=== PATIENT | female | born 1945 | race Caucasian/White ===

== ENCOUNTER 2022-10-01 07:33 | Outpatient (OUT) | payer MEDICARE, OTHER, SELFPAY ==
--- NOTE | 2022-10-01 | ECG_ITS ---
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
[2022-10-01 08:00] LABS: Basophils Percent Auto 0.5 % (0.2-2.0); Eosinophils Absolute Auto 0.4 10^3/uL (0.0-0.7); Eosinophils Percent Auto 5.3 % (0.9-7.0); Hematocrit 39.8 % (36.0-48.0); Immature Granulocytes Abs Auto 0.02 10^3/uL (0.00-0.03); Immature Granulocytes Pct Auto 0.3 % (0.0-0.5); Lymphocytes Absolute Auto 2.9 10^3/uL (1.2-3.8); Lymphocytes Percent Auto 36.1 % (20.5-60.0); Mean Corpuscular HGB Conc 32.7 g/dL (29.9-35.2); Mean Corpuscular Hemoglobin 28.8 pg (26.7-34.0); Mean Corpuscular Volume 88.2 fL (81.0-99.0); Mean Platelet Volume 10.5 fL (9.5-13.5); Monocytes Absolute Auto 0.8 10^3/uL (0.3-0.8); Monocytes Percent Auto 10.2 % (1.7-12.0); Neutrophils Absolute Auto 3.8 10^3/uL (1.4-6.5); Neutrophils Percent Auto 47.6 % (43.0-75.0); Platelet Count 307 10^3/uL (150-450); Red Blood Count 4.51 10^6/uL (4.20-5.40); Red Cell Distribution Width 13.1 % (11.0-15.0)
--- NOTE | 2022-10-01 08:13 | XR_ITS ---
The [address] [address] Patient Name: CARMEN ROSAS MRN: [id number] date: 1945 Sex: F Assigned Patient Location: LAB Current Patient Location: LAB Accession/Order Number: [id number] Exam Date: 10/01/2022 08:20 Report Date: 10/01/2022 08:46 At the request of: NON-STAFF PHYSICIAN Procedure: XR chest 2V EXAM: XR chest 2V HISTORY: . Atrial Fibrillation I48.91 . COMPARISON: 10/01/2021 TECHNIQUE: Frontal and lateral chest FINDINGS: Heart and vascularity are unremarkable. Lungs are free of focal infiltrates. Early spondylosis of the spine is noted. Arthritic changes of both shoulders are noted left greater than right. XR/XR chest 2V IMPRESSION: 1. No acute heart or lung disease identified. 2. Arthritic changes of both shoulders. Electronically authenticated by: SHIRA HWANG Date: 10/01/2022 08:46
[2022-10-01 08:53] LABS: Alanine Aminotransferase 22 U/L (14-59); Albumin Level 3.8 g/dL (3.4-5.0); Alkaline Phosphatase 76 U/L (46-116); Anion Gap 12.4; Aspartate Amino Transferase 17 U/L (15-37); BUN Creatinine Ratio 21.2; Bilirubin Total 0.3 mg/dL (0.2-1.0); Calcium 8.8 mg/dL (8.5-10.1); Carbon Dioxide 27.3 mmol/L (21.0-32.0); Chloride 106 mmol/L (98-107); Chol HDL Ratio 2.9; Cholesterol 139 mg/dL (<=200); Estimated GFR (African America 42 (>=60); Estimated GFR (Non-African Ame 35 (>=60); Globulin 3.8 g/dL; Glucose 104 mg/dL (74-106); HDL Cholesterol 48 mg/dL (40-60); Potassium 3.7 mmol/L (3.5-5.1); Sodium 142 mmol/L (136-145); Thyroid Stimulating Hormone 2.087 uIU/mL (0.358-3.740); Total Protein 7.6 g/dL (6.4-8.2); Triglycerides 80 mg/dL (<=150)
== END 2022-10-01 07:34 | disposition home or self-care (01) ==
LOC: LAB 07:39
PROVIDERS: PCP Family Medicine
DX: Z13.220 Encounter for screening for lipoid disorders (principal); Z13.6 Encounter for screening for cardiovascular disorders; I07.1 Rheumatic tricuspid insufficiency; I48.91 Unspecified atrial fibrillation
CPT/HCPCS: 36415; 71046; 80053; 80061; 83735; 84443; 85025; 93005

== ENCOUNTER 2023-06-23 13:16 | Outpatient (OUT) | payer MEDICARE, OTHER, SELFPAY | END 2023-06-23 13:17 | disposition home or self-care (01) | LOC: PST 13:17 | PROVIDERS: PCP Family Medicine; Visit Provider Ophthalmology | DX: Z01.818 Encounter for other preprocedural examination (principal); H25.811 Combined forms of age-related cataract, right eye ==

== ENCOUNTER 2023-06-26 06:54 | Day surgery (SDC) | payer MEDICARE, OTHER, SELFPAY ==
--- NOTE | 2023-06-26 | OP_ITS ---
OPERATION DATE: 06/26/2023 SURGEON: Gildardo Dwyer M.D. PREOPERATIVE DIAGNOSIS: Nuclear sclerotic cataract right eye. POSTOPERATIVE DIAGNOSIS: Nuclear sclerotic cataract right eye. PROCEDURE NAME: Cataract extraction with intraocular lens placement for the right eye. ANESTHESIA: Topical. ESTIMATED BLOOD LOSS: Zero. COMPLICATIONS: None. PROCEDURE: The patient was brought to the Operating Room in supine position. After proper identification, the right eye was prepped and draped in a sterile ophthalmic fashion. A paracentesis created at the 11 o'clock position. Approximately 1 cc of unpreserved Xylocaine was injected into the anterior chamber followed by Amvisc Plus. Using a 2.6 mm Keratome blade, a clear corneal incision was created at the 8 o'clock limbus. A cystotome was then used to begin a curvilinear capsulorrhexis that was continued for 360 degrees with the Utrata forceps. BSS on a 26 gauge cannula was injected beneath the anterior capsule to hydrodissect as well as hydrodelineate the lens. After ensuring mobility, phacoemulsification was performed in a [id number]-type fashion. After all nuclear material had been removed from the eye, IA was introduced and all residual cortical material was cleaned up. Additional Amvisc Plus was injected into the posterior bag and a lens model MX60, 24.0 diopters was injected and dialed into position. After ensuring centration, IA was reintroduced into the anterior chamber and all residual Amvisc Plus removed from the eye. BSS on a 30 gauge cannula was injected into the stroma of both the clear corneal incision as well as paracentesis to hydrate the wounds. Additional BSS was injected into the anterior chamber to pressurize the eye at approximately 20 to 22 mmHg by finger tension. 0.1 cc of antibiotic was used to wash out the anterior chamber, maintaining the pressures above. Weck-Vania sponges were used to check the wounds to be watertight. One drop of apraclonidine and one drop of prednisolone acetate were placed into the eye and a shield was placed over top. The patient was sent to the postoperative area in satisfactory condition to follow up the following day for postoperative care. TRIPP
--- NOTE | 2023-06-26 06:54 | HP_ITS ---
PREOPERATIVE HISTORY AND PHYSICAL Date:? 06/25/2023 HISTORY:? Patient is a 78-year-old white female with complaints of declining vision out of her right eye.? This has gradually worsened in a constant fashion over the last eight months.? She states having difficulty with distance and near vision.? The television and activities of daily living are harder to see.? She also states having difficulty at night time while driving because of headlights creating glare and halos.? PAST OCULAR HISTORY:? Denies. PAST MEDICAL HISTORY:? Atrial fibrillation, GERD, hiatal hernia, history of cardioversion, chronic kidney disease stage III.? History of bladder suspension, hysterectomy, tonsillectomy. SYSTEMIC MEDICATIONS:? Include calcium citrate, triamterene, hydrochlorothiazide, rosuvastatin, hydralazine, diltiazem, metoprolol and Xarelto.? ALLERGIES TO MEDICATIONS:? Lisinopril. REVIEW OF SYSTEMS:? No pertinent positives. PHYSICAL EXAM: GENERAL:? In general, she is awake, alert and oriented x3, well developed, well nourished, in no acute distress.? HEART:? Regular rate and rhythm. LUNGS:? Clear bilaterally. ABDOMEN:? Soft, non-tender, non-distended. EXTREMITIES:? No pitting edema. OPHTHALMIC EXAM:? Revealed a visual acuity of 20/40 -2 in the right and hand motion in the left, and the right eye glaring to 20/200.? Pupils motility, muscle balance and confrontational visual amaro within normal limits bilaterally.? Pressures are measured at 16 bilaterally.? Slit lamp exam revealed blepharitis with a severe decrease in tear film bilaterally.? Conjunctiva, cornea, anterior chamber and iris were within normal limits bilaterally.? Lens status demonstrated 2+ nuclear sclerosis with 1+ cortical changes in the right and 3+ nuclear sclerosis, 3+ PSC and 2+ cortical change in the left eye.? FUNDUS EXAM:? Revealed good view on the right and poor view on the left.? Optic discs, macula, vessels, periphery and vitreous were within normal limits bilaterally.? ASSESSMENT AND PLAN:? Visually significant cataract, right eye.? After the risks, benefits, and alternatives as well as expectations were delivered to the patient, she elected to go forward with cataract removal.? She understands those risks to include but not limited to infection, bleeding, loss of vision or loss of the eye itself.? Secondly, she understands that postoperatively she is likely to require spectacle correction for her best visual acuity.? Finally, a complete ophthalmic exam was performed and there was not determined to be any other source of vision decline other than that of cataract. After understanding all risks as well as expectations, she elected to go forward with the procedure as listed above and will be doing so in the near future. TRIPP
[2023-06-26 07:04] VITALS: BP 137/64; PULSE 65; TEMP 36.4; O2SAT 98; BMI 31.8
[2023-06-26] MEDS: TROPICAMIDE 1% OP SOL 300 DROP/15 ML BOTTLE OP ×4 (07:13→07:40)
[2023-06-26] MEDS: PHENYLEPHRINE HCL 2.5% OP SOL 40 DROP/2 ML BOTTLE OP ×4 (07:14→07:40)
[2023-06-26] MEDS: DIAZEPAM 5 MG TABLET 10 MG PO (07:15)
[2023-06-26] MEDS: BESIFLOXACIN HCL 100 DROP DROPS.SUSP OP ×4 (07:15→07:41)
[2023-06-26] MEDS: PROPARACAINE HCL 0.5% 300 DROP/15 ML BOTTLE OP (08:22)
[2023-06-26 08:33] VITALS: BP 115/77; PULSE 60; O2SAT 94
[2023-06-26] MEDS: LIDOCAINE 2% JELLY 10 ML TOPICAL (08:36)
[2023-06-26] MEDS: APRACLONIDINE HCL 0.5% SOL 100 DROP/5 ML BOTTLE OP (08:36)
[2023-06-26] MEDS: HYALURONATE SODIUM 16 MG/ML SYRINGE OP (08:36)
[2023-06-26] MEDS: LIDOCAINE HCL 1% PF 20 MG/2 ML VIAL INJ (08:36)
[2023-06-26] MEDS: BETADINE POVIDONE-IODINE 5% OP SOL 30 ML BOTTLE OP (08:37)
[2023-06-26] MEDS: TETRACAINE HCL 0.5% OP SOL 80 DROP/4 ML BOTTLE OP (08:37)
[2023-06-26] MEDS: PHENYLEPHRINE/KETOROLAC 1-0.3% ML VIAL 4 ML IRR (08:37)
[2023-06-26] MEDS: PREDNISOLONE ACETATE OP 1% SUSP 100 DROPS/5 ML 1 DROP OP (08:37)
[2023-06-26] MEDS: CEFUROXIME SODIUM 750 MG, 0.9 % SODIUM CHLORIDE 16.3 ML OP (08:38)
[2023-06-26 08:46] VITALS: BP 129/87; PULSE 52; O2SAT 96
== END 2023-06-26 09:00 | disposition home or self-care (01) ==
LOC: SURGOUT 06:55
PROVIDERS: PCP Family Medicine; Visit Provider Ophthalmology
PROC: (CPT 66984; principal; 2023-06-26 08:15)
DX: H25.11 Age-related nuclear cataract, right eye (principal); I48.91 Unspecified atrial fibrillation; K21.9 Gastro-esophageal reflux disease without esophagitis; K44.9 Diaphragmatic hernia without obstruction or gangrene; N18.30 Chronic kidney disease, stage 3 unspecified; Z90.710 Acquired absence of both cervix and uterus; Z79.01 Long term (current) use of anticoagulants
CPT/HCPCS: 66984; V2630

== ENCOUNTER 2023-09-30 08:04 | Outpatient (OUT) | payer MEDICARE, OTHER, SELFPAY ==
--- NOTE | 2023-09-30 | ECG_ITS ---
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
--- OUTSIDE RECORDS SUMMARY | 2023-09-30 08:20 | XMS_ITS | CCD ---
Author Organization [facility] Care Team Providers Care [place] Salvage Worker Name Role Phone Dusty Sommers Primary Care Provider [phone] ROBERTO CARLOS ONEILL Attending Unavailable DUSTY SOMMERS Primary Care Unavailable DUSTY SOMMERS Referring Unavailable ROBERTO CARLOS ONEILL Admitting Unavailable [place] Procedure Practitioner Unavailab ROBERTO CARLOS [place] Surgeon Unavailable SARAHI JARAMILLO Admitting Unavailable SARAHI JARAMILLO Attending Unavailable DUSTY SOMMERS Primary Care Unavailable SELF, REFERRED Referring Unavailable SARAHI JARAMILLO Admitting Unavailable SARAHI JARAMILLO Attending Unavailable DUSTY SOMMERS Primary Care Unavailable DUSTY SOMMERS Referring Unavailable SARAHI JARAMILLO Attending Unavailable SARAHI JARAMILLO Admitting Unavailable MATTHIEU, DUSTY Referring Unavailable MATTHIEU, DUSTY Primary Care Unavailable MATTHIEU, EDDOMO Referring Unavailable SARAHI JARAMILLO Admitting Unavailable SARAHI JARAMILLO Attending Unavailable MATTHIEU, DUSTY Primary Care Unavailable Dusty Sommers MD Primary Care Provider [phone] BLADIMIR SALGUERO Referring Unavailable DUSTY SOMMERS Primary Care Unavailable BLADIMIR SALGUERO Admitting Unavailable BLADIMIR SALGUERO Attending Unavailable DR DUSTY SOMMERS Primary Care Unavailable Richard, DR Barba Consulting Unavailable BLADIMIR SALGUERO Consulting Unavailable DUSTY SOMMERS Attending Unavailable ERICK FERRIS Attending Unavailable MARIO HENRY Referring Unavailable Medications Current Medications Medication Drug Class(es) Dates Sig (Normalized) Sig (Original) aspirin 81 mg delayed release oral tablet (1 source) Platelet Aggregation Inhibitor, Nonsteroidal Anti-inflammatory Drug take 1 tablet by mouth once daily aspirin 81 MG EC tablet Take 81 mg by mouth daily 0 Active cholecalciferol 0.05 mg oral capsule (2 sources) Vitamin D Cholecalciferol (VITAMIN D3) 50 MCG (1999) CAPS Take by mouth 0 Active 24 hr dilTIAZem hydrochloride 180 mg extended release oral capsule (2 sources) Calcium Channel Cece take 2 capsules by mouth once daily dilTIAZem (DILACOR XR) 180 MG extended release capsule Take 360 mg by mouth daily 0 Active famotidine 20 mg oral tablet (2 sources) Histamine-2 Receptor Antagonist take 1 tablet by mouth twice daily famotidine (PEPCID) 20 MG tablet Take 20 mg by mouth 2 times daily 0 Active hydrALAZINE hydrochloride 50 mg oral tablet (2 sources) Arteriolar Vasodilator Start: 07-20-2020 take 1 tablet by mouth twice daily hydrALAZINE (APRESOLINE) 50 MG tablet Take 1 tablet by mouth 2 times daily 180 tablet 3 07/20/2020 Active take 1 tablet by maddison th three times daily hydrALAZINE (APRESOLINE) 10 MG tablet Ta ke 10 mg by mouth 3 times daily 0 Active hydroCHLOROthiazide 25 mg / triamterene 37.5 mg oral tablet (1 source) Potassium-sparing Diuretic, Thiazide Diuretic Start: 08-29-2020 take 1 tablet by mouth once daily triamterene-hydroCHLOROthiazide (MAXZIDE-25) 37.5-25 MG per tablet Take 1 tablet by mouth daily 30 tablet 11 08/29/2020 Active metoprolol tartrate 25 mg oral tablet (2 sources) beta-Adrenergic Cece take 1 tablet by mouth twice daily metoprolol tartrate (LOPRESSOR) 25 MG tablet Take 25 mg by mouth 2 times daily 0 Active rivaroxaban 20 mg oral tablet (2 sources) Factor Xa Inhibitor rivaroxaban (XARELTO ) 20 MG TABS tablet Take 20 mg by mouth 0 Active rosuvastatin calcium 5 mg oral tablet (1 source) HMG-CoA Reductase Inhibitor Start: 05-16-2020 take 1 tablet by mouth once daily rosuvastatin (CRESTOR) 5 MG tablet Take 1 tablet by mouth daily 90 tablet 3 05/16/2020 Active 1000 ml sodium chloride 4.5 mg/ml injection (1 source) Start: 09-27-2019 0.45 % sodium chloride infus ion Completed/Discontinued Medications Medication Drug Class(es) Dates Sig (Normalized) Sig (Original) 20 ml propofol 10 mg/ml injection (2 sources) General Anesthetic Start: 09-27-2019 End: 09-27-2019 propofol injection Problems Problem Classification Problem Date Documented Date Episodic/Chronic Cardiac dysrhythmias (7 sources) Atrial fibrillation; Translations: [Unspecified atrial fibrillation] Onset: 10-01-2021 Chronic Heart valve disorders (2 sources) Rheumatic tricuspid insufficiency; 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] Onset: 10-24-2021 Chronic Nutritional deficiencies (1 source) Vitamin D deficiency, unspecified; Translations: [VITAMIN D DEFICIENCY UNSPECIFIED] Onset: 10-24-2021 Chronic Other screening for suspected conditions (not mental disorders or infectious disease) (3 sources) Electrocardiogram abnormal; Translations: [Encounter for screening for lipoid disorders] Onset: 10-24-2021 Episodic Unclassified (1 source) History of clinical finding in subject; Translations: [History of cardiac murmur] Results Test Name Value Interpretation Reference Range Facility VIT D 25-OH [facility]OR[facility]on 2021 Vitamin D, 25-Hydroxy 64.4 ng/mL Normal 30.0-100.0 [facility] Comment on above: Result Comment: Sayra min D deficiency has been defined by the [place] of [employer] and an Endocrine Society practice guideline as a level of serum 25-OH vitamin D less than 20 ng/mL (1,2). The Endocrine Society went on to further define vitamin D insufficiency as a level between 21 and 29 ng/mL (2). 1. IOM ([place] of [employer]). 2010. Dietary reference intakes for calcium and D. [place]: The National Academies Press. 2. Ericka MF, Lana NC, Angi BETHEA, et al. Evaluation, treatment, and prevention of vitamin D deficiency: an Endocrine Society clinical practice guideline. JCEM. 2010; 96(7):1911-30. Performed By: #### V ITADLC #### [facility] [address] [address] [address] Oneida Brady CBC AUTO DIFFon 10-01-2021 BASO # 0.1 103/ul Normal 0.0-0.1 [facility] Comment on above: Performed By: #### C BC #### [facility] [address] [address] [address] Oneida Brady Basophils/100 WBC (Bld) 0.7 % Normal 0.2-2.0 [facility] Comment on above: Performed By: #### C BC #### [facility] [address] [place] [address] Dr. Oneida Brady EO # 0.2 103/ul Normal 0.0-0.7 [facility] Comment on above: Performed By: #### C BC #### [facility] [address] [place] [address] Dr. Oneida Brady Eosinophils/100 WBC (Bld) 2.6 % Normal 0.9-7.0 [facility] Comment on above: Performed By: #### C BC #### [facility] [address] [place] [address] Dr. Oneida Brady Erythrocyte distribution width (RBC) [Ratio] 13.1 % Normal 11.0-15.0 [facility] Comment on above: Performed By: #### C BC #### [facility] [address] [place] [address] Dr. Oneida Brady Hematocrit (Bld) [Volume fraction] 42.9 % Normal 36.0-48.0 [facility] Comment on above: Performed By: #### C BC #### [facility] [address] [place] [address] Dr. Oneida Brady Hemoglobin (Bld) [Mass/Vol] 14.2 g/dL Normal 12.0-16.0 [facility] Comment on above: Performed By: #### C BC #### [facility] [address] [place] [address] Dr. Oneida Brady IG # 0.03 10e3/ul Normal 0.00-0.03 [facility] Comment on above: Performed By: #### C BC #### [facility] [address] [place] [address] Dr. Oneida Brady IG % 0.3 % Normal 0.0-0.5 [facility] Comment on above: Performed By: #### C BC #### [facility] [address] [place] [address] Dr. Oneida Brady LYMPH # 2.5 103/ul Normal 1.2-3.8 [facility] Comment on above: Performed By: #### C BC #### [facility] [address] [place] [address] Dr. Oneida Brady Lymphocytes/100 WBC (Bld) 28.3 % Normal 20.5-60.0 [facility] Comment on above: Performed By: #### C BC #### [facility] [address] [place] [address] Dr. Oneida Brady MANUAL DIFF REQ NO Normal [facility] Comment on above: Performed By: #### C BC #### [facility] [address] [place] [address] Dr. Oneida Brady MCH (RBC) [Entitic mass] 29.5 pg Normal 26.7-34.0 [facility] Comment on above: Performed By: #### C BC #### [facility] [address] [place] [address] Dr. Oneida Brady MCHC (RBC) [Mass/Vol] 33.1 g/dL Normal 29.9-35.2 [facility] Comment on above: Performed By: #### C BC #### [facility] [address] [place] [address] Dr. Oneida Brady MCV (RBC) [Entitic vol] 89.0 fL Normal 81.0-99.0 [facility] Comment on above: Performed By: #### C BC #### [facility] [address] [place] [address] Dr. Oneida Brady MONO # 0.8 103/ul Normal 0.3-0.8 [facility] Comment on above: Performed By: #### C BC #### [facility] [address] [place] [address] Dr. Oneida Brady Monocytes/100 WBC (Bld) 9.4 % Normal 1.7-12.0 [facility] Comment on above: Performed By: #### C BC #### [facility] [address] [place] [address] Dr. Oneida Brady NEUT # 5.2 103/ul Normal 1.4-6.5 [facility] Comment on above: Performed By: #### C BC #### [facility] [address] [place] [address] Dr. Oneida Brady Neutrophils/100 WBC (Bld) 58.7 % Normal 43.0-75.0 [facility] Comment on above: Performed By: #### C BC #### [facility] [address] [place] [address] Dr. Oneida Brady Platelet mean volume (Bld) [Entitic vol] 10.5 fL Normal 9.5-13.5 [facility] Comment on above: Performed By: #### C BC #### [facility] [address] [place] [address] Dr. Oneida Brady PLT 284 103/ul Normal 150-450 [facility] Comment on above: Performed By: #### C BC #### [facility] [address] [place] [address] Dr. Oneida Brady RBC 4.82 106/ul Normal 4.20-5.40 [facility] Comment on above: Performed By: #### C BC #### [facility] [address] [place] [address] Dr. Oneida Brady WBC 8.8 103/ul Normal 4.0-11.0 [facility] Comment on above: Performed By: #### C BC #### [facility] [address] [place] [address] Dr. Oneida Brady LIPID PROFILEon 10-01-2021 CHOL-HDL RATIO NORM SEE BELOW Normal [facility] Comment on above: Result Comment: 3.3 - 4.4 LOW RISK 4.4 - 7.1 AVERAGE RISK 7.1 - 11.0 MODERATE RISK >11.0 HIGH RISK Performed By: #### C MP, MG, TSH, LIPID #### [facility] [address] [place] [address] Dr. Oneida Brady Cholesterol [Mass/Vol] 158 mg/dL Normal <=200 [facility] Comment on above: Performed By: #### C MP, MG, TSH, LIPID #### [facility] [address] [place] [address] Dr. Oneida Brady Cholesterol in HDL [Mass/Vol] 51 mg/dL Normal 40-60 [facility] Comment on above: Performed By: #### C MP, MG, TSH, LIPID #### [facility] [address] [address] [address] Oneida Brady Cholesterol in LDL [Mass/Vol] 83.2 mg/dL Normal [facility] Comment on above: Performed By: #### C MP, MG, TSH, LIPID #### [facility] [address] [address] [address] Oneida Brady Cholesterol.total/Ch olesterol in HDL [Mass ratio] 3.1 {ratio} Normal [facility] Comment on above: Performed By: #### C MP, MG, TSH, LIPID #### [facility] [address] [address] [address] Oneida Brady HDL NORMAL > or = 60 mg/dl - LOW CARDIOVASCULAR RISK <40 mg/dl - HIGH CARDIOVASCULAR RISK Normal [facility] Comment on above: Performed By: #### C MP, MG, TSH, LIPID #### [facility] [address] [address] [address] Oneida Brady LDL CALC NORMAL SEE BELOW Normal [facility] Comment on above: Result Comment: <100 mg/dl OPTIMAL 100 - 129 mg/dl NEAR OR ABOVE OPTIMAL 130 - 159 mg/dl BORDERLINE HIGH 160 - 189 mg/dl HIGH >190 mg/dl VERY HIGH Performed By: #### C MP, MG, TSH, LIPID #### [facility] [address] [address] [address] Oneida Brady Triglyceride [Mass/Vol] 119 mg/dL Normal <=150 [facility] Comment on above: Performed By: #### C MP, MG, TSH, LIPID #### [facility] [address] [place] [address] Dr. Oneida Brady VLDL CALC 23.8 mg/dL Normal [facility] Comment on above: Performed By: #### C MP, MG, TSH, LIPID #### [facility] [address] [address] [address] Oneida Brady MAGNESIUMon 10-01-2021 Magnesium [Mass/Vol] 2.1 mg/dL Normal 1.8-2.4 [facility] Comment on above: Performed By: #### C MP, MG, TSH, LIPID #### [facility] [address] [place] [address] Dr. Oneida Brady PROF 14(COMP METB)on 022 Albumin [Mass/Vol] 4.3 g/dL Normal 3.4-5.0 [facility] Comment on above: Performed By: #### C MP, MG, TSH, LIPID #### [facility] [address] [place] [address] Dr. Oneida Brady Albumin/Globulin [Mass ratio] 1.1 {ratio} Normal [facility] Comment on above: Performed By: #### C MP, MG, TSH, LIPID #### [facility] [address] [place] [address] Dr. Oneida Brady ALP [Catalytic activity/Vol] 88 U/L Normal 46-116 [facility] Comment on above: Performed By: #### C MP, MG, TSH, LIPID #### [facility] [address] [place] [address] Dr. Oneida Brady ALT [Catalytic activity/Vol] 21 U/L Normal 14-59 [facility] Comment on above: Performed By: #### C MP, MG, TSH, LIPID #### [facility] [address] [place] [address] Dr. Oneiad Brady Anion gap [Moles/Vol] 16.0 mmol/L Normal [facility] Comment on above: Performed By: #### C MP, MG, TSH, LIPID #### [facility] [address] [place] [address] Dr. Oneida Brady AST [Catalytic activity/Vol] 18 U/L Normal 15-37 [facility] Comment on above: Performed By: #### C MP, MG, TSH, LIPID #### [facility] [address] [place] [address] Dr. Oneida Brady Bilirubin [Mass/Vol] 0.6 mg/dL Normal 0.2-1.0 [facility] Comment on above: Performed By: #### C MP, MG, TSH, LIPID #### [facility] [address] [place] [address] Dr. Oneida Brady Calcium [Mass/Vol] 9.6 mg/dL Normal 8.5-10.1 [facility] Comment on above: Performed By: #### C MP, MG, TSH, LIPID #### [facility] [address] [address] [address] Oneida Brady Chloride [Moles/Vol] 104 mmol/L Normal 98-107 [facility] Comment on above: Performed By: #### C MP, MG, TSH, LIPID #### [facility] [address] [address] [address] Oneida Brady CO2 [Moles/Vol] 24.7 mmol/L Normal 21.0-32.0 [facility] Comment on above: Performed By: #### C MP, MG, TSH, LIPID #### [facility] [address] [place] [address] Dr. Oneida Brady Creatinine [Mass/Vol] 1.51 mg/dL Critically high 0.55-1.02 [facility] Comment on above: Performed By: #### C MP, MG, TSH, LIPID #### [facility] [address] [place] [address] Dr. Oneida Brady EGFR-AF CROATIAN 41 mL/min/1.73m2 Critically low >=60 [facility] Comment on above: Performed By: #### C MP, MG, TSH, LIPID #### [facility] [address] [place] [address] Dr. Oneida Brady EGFR-NON AF CROATIAN 34 mL/min/1.73m2 Critically low >=60 [facility] Comment on above: Performed By: #### C MP, MG, TSH, LIPID #### [facility] [address] [place] [address] Dr. Oneida Brady Globulin (S) [Mass/Vol] 3.8 g/dL Normal [facility] Comment on above: Performed By: #### C MP, MG, TSH, LIPID #### [facility] [address] [address] [address] Oneida Brady Glucose [Mass/Vol] 108 mg/dL Critically high 74-106 [facility] Comment on above: Performed By: #### C MP, MG, TSH, LIPID #### [facility] [address] [place] [address] Dr. Oneida Brady Potassium [Moles/Vol] 3.7 mmol/L Normal 3.5-5.1 [facility] Comment on above: Performed By: #### C MP, MG, TSH, LIPID #### [facility] [address] [place] [address] Dr. Oneida Brady Protein [Mass/Vol] 8.1 g/dL Normal 6.4-8.2 [facility] Comment on above: Performed By: #### C MP, MG, TSH, LIPID #### [facility] [address] [place] [address] Dr. Oneida Brady Sodium [Moles/Vol] 141 mmol/L Normal 136-145 [facility] Comment on above: Performed By: #### C MP, MG, TSH, LIPID #### [facility] [address] [place] [address] Dr. Oneida Brady Urea nitrogen [Mass/Vol] 28.0 mg/dL Critically high 7.0-18.0 [facility] Comment on above: Performed By: #### C MP, MG, TSH, LIPID #### [facility] [address] [place] [address] Dr. Oneida Brady Urea nitrogen/Creatinine [Mass ratio] 18.5 mg/mg Normal [facility] Comment on above: Performed By: #### C MP, MG, TSH, LIPID #### [facility] [address] [place] [address] Dr. Oneida Brady TSHon 10-01-2021 TSH 2.642 uIU/mL Normal 0.358-3.740 [facility] Comment on above: Performed By: #### C MP, MG, TSH, LIPID #### [facility] [address] [place] [address] Dr. Oneida Brady XR CHEST 2 Von 10-01-2021 XR CHEST 2 V EXAMINATION: XR CHEST 2 V HISTORY: Atrial fibrillation COMPARISON: 09/18/2020 TECHNIQUE: PA and lateral FINDINGS: LUNGS: No significant pulmonary parenchymal abnormalities. VASCULATURE: No increased pulmonary vasculature. PLEURA: No pneumothorax, effusion, or pleural thickening. CARDIAC: No cardiomegaly or cardiac silhouette abnormality. MEDIASTINUM: No visible mass or adenopathy. BONES: Multiple thoracic wedge compression fractures, unchanged. Severe degenerative changes of the left glenohumeral joint, stable OTHER: Negative. IMPRESSION: Clear lungs Electronically authenticated by: SHIRA SCHMIDT Date: 2021-10-01 08:29 Normal [facility] Basic Metabolic PanelOrdered By: Bladimir Salguero on 10-12-2020 Anion gap [Moles/Vol] 12 mmol/L 9 - 17 mmol/L [employer] Phone: Calcium [Mass/Vol] 9.9 mg/dL 8.6 - 10. 4 mg/dL [employer] Phone: Chloride [Moles/Vol] 104 mmol/L 98 - 10 7 mmol/L [employer] Phone: CO2 [Moles/Vol] 22 mmol/L 20 - 31 mmol/L [employer] Phone: Creatinine [Mass/Vol] 1.24 mg/dL High 0.50 - 0.90 mg/dL [employer] Phone: GFR 51 mL/min Low >60 [employer] Phone: GFR Non- 42 mL/min Low >60 [employer] Phone: GFR/1.73 sq M.predicted MDRD (S/P/Bld) [Vol rate/Area] [employer] Phone: Comment on above: Average GFR for 70 o r more years old: 75 mL/min/1.73sq m Chronic Kidney Disease: <60 mL/min/1.73sq m Kidney failure: <15 mL/min/1.73sq m eGFR calculated using average adult body mass. Additional eGFR calculator available at: http://www.Webmedx.[employer]/multiple_crcl_2012.htm GFR/1.73 sq M.predicted MDRD (S/P/Bld) [Vol rate/Area] NOT REPORTED [facility] [employer] Phone: Glucose [Mass/Vol] 130 mg/dL High 70 - 99 mg/dL [facility] [employer] Phone: Interpretation and review of laboratory results Abnormal [facility] [employer] Phone: Potassium [Moles/Vol] 3.7 mmol/L 3.7 - 5.3 mmol/L [facility] [employer] Phone: Sodium [Moles/Vol] 138 mmol/L 135 - 144 mmol/L [facility] [employer] Phone: Urea nitrogen (BldV) [Mass/Vol] 23 mg/dL 8 - 23 mg/dL [facility] [employer] Phone: Urea nitrogen/Creatinine (Bld) [Mass ratio] 19 [facility]: [facility] Phone: Basic Metabolic Profon 10-12 (cont.) Normal [facility] Comment on above: Result Comment: Aver age GFR for 70 or more years old: 75 mL/min/1.73sq m Chronic Kidney Disease: <60 mL/min/1.73sq m Kidney failure: <15 mL/min/1.73sq m eGFR calculated using average adult body mass. Additional eGFR calculator available at: http://www.Webmedx.[employer]/multiple_crcl_2011.htm Performed By: #### B MP #### [facility] [address] [place] [address] [employer]: Shira De Oliveira MD Anion gap [Moles/Vol] 12 mmol/L Normal - [facility] Comment on above: Performed By: #### B MP #### [facility] [address] [place] [address] [employer]: Shira De Oliveira MD BUN/CRE Ratio 19 Normal - [facility] Comment on above: Performed By: #### B MP #### [facility] [address] [place], [place] [id number] [employer]: Shira De Oliveira MD Calcium [Mass/Vol] 9.9 mg/dL Normal 8.6-10.4 [facility] Comment on above: Performed By: #### B MP #### [facility] [address] [place], [place] [id number] [employer]: Shira De Oliveira MD Chloride [Moles/Vol] 104 mmol/L Normal 98-107 [facility] Comment on above: Performed By: #### B MP #### [facility] [address] [place], [place] [id number] [employer]: Shira De Oliveira MD CO2 [Moles/Vol] 22 mmol/L Normal 20-31 [facility] Comment on above: Performed By: #### B MP #### [facility] [address] [place], [place] [id number] [employer]: Shira De Oliveira MD Creatinine [Mass/Vol] 1.24 mg/dL High 0.50-0.90 [facility] Comment on above: Performed By: #### B MP #### [facility] [address] [place], [place] [id number] [employer]: Shira De Oliveira MD GFR, Amer 51 mL/min Low >60 [facility] Comment on above: Performed By: #### B MP #### [facility] [address] [place], [place] [id number] [employer]: Shira De Oliveira MD GFR,non Amer 42 mL/min Low >60 [facility] Comment on above: Performed By: #### B MP #### [facility] [address] [place], [place] [id number] [employer]: Shira De Oliveira MD Glucose [Mass/Vol] 130 mg/dL High 70-99 [facility] Comment on above: Performed By: #### B MP #### [facility] [address] [place] [address] [employer]: Shira De Oliveira MD Potassium [Moles/Vol] 3.7 mmol/L Normal 3.7-5.3 [facility] Comment on above: Performed By: #### B MP #### [facility] [address] [place] [address] [employer]: Shira De Oliveira MD Sodium [Moles/Vol] 138 mmol/L Normal 135-144 [facility] Comment on above: Performed By: #### B MP #### [facility] [address] [place] [address] [employer]: Shira De Oliveira MD Urea nitrogen [Mass/Vol] 23 mg/dL Normal 8-23 [facility] Comment on above: Performed By: #### B MP #### [facility] [address] [place] [address] [employer]: Shira De Oliveira MD Staging: NOT REPORTED Normal [facility] Comment on above: Performed By: #### B MP #### [facility] [address] [place] [address] [employer]: Shira De Oliveira MD ELBOW RIGHT 3 [facility] 08-31-19 21 ELBOW RIGHT 3 S [facility] Department of Radiology [address] [place] [id number] Patient Name: ASHANTI QUINTERO : 1945 Sex: F Age: Race: White Pt. 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 Ortho follow up. COMPARISON: 06/26/2020. IMPRESSION: 1. Right radial head prosthesis and surgical fixation of the ulna. Ulnar fracture demonstrates no progressive bridging. Surgical material identified with wire in the anterior subcutaneous tissues. 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 No effusion. Anatomic alignment. Electronically signed: Guillermina Gomez. Transcribed by: [email or web address], User Resident: Electronically Signed by: GUILLERMINA GOMEZ @ 08/30/2020 03:30 PM Normal [facility] Comment on above: Order Comment: Evalu ate ELBOW RIGHT 3 [facility] 06-27-19 21 ELBOW RIGHT 3 S [facility] Department of Radiology [address] [place] [id number] Patient Name: ASHANTI QUINTERO : 1945 Sex: F Age: Race: White Pt. 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 PROTOCOL: AP,Lateral and Oblique views were obtained. COMPARISON: 05/01/2020 IMPRESSION: Radial head prosthesis appears stable in position. Ulnar plate and screw fixation is unchanged. Further reduction soft tissue swelling. No acute hardware complication. Stable alignment Electronically signed: Deann Hansen. Transcribed by: [email or web address], User Resident: Electronically Signed by: DEANN HANSEN @ 06/26/2020 01:09 PM Normal [facility] Comment on above: Order Comment: evalu ate ELBOW RIGHT 3 [facility] 05-02-19 21 ELBOW RIGHT 3 [facility] Department of Radiology [address] [place] [phone] Patient Name: ASHANTI QUINTERO : 1945 Sex: F Age: Race: White Pt. 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 COMPARISON: 03/20/2020. IMPRESSION: 1. Radial prosthesis with plate and screw fixation of the ulna. Anatomic alignment. Improved soft tissue swelling. No elbow joint effusion. Electronically signed: Guillermina Gomez. Transcribed by: [email or web address], User Resident: Electronically Signed by: GUILLERMINA GOMEZ @ 05/01/2020 01:32 PM Normal [facility] Comment on above: Order Comment: evalu ate ELBOW RIGHT 3 Son 03-20-19 21 ELBOW RIGHT 3 S [facility] Department of Radiology [address] [place] [phone] Patient Name: ASHANTI QUINTERO : 1945 Sex: F Age: Race: White Pt. Location: Patient Status: O Ordered Date: 03/20/2020 12:30:00 PM Completed Date: 03/20/2020 12:32 PM Requesting Provider: SARAHI JARAMILLO Attending Provider: SARAHI JARAMILLO Report Copy To: Signs & Symptoms: M25.521 Pain in right elbow I10 History: Noemy Comments: Evaluate Exam: ELBOW RIGHT 3 S ELBOW RIGHT 3 S 03/20/2020 12:32 PM CLINICAL INDICATIONS: M25.521 Pain in right elbow I10 TECHNOLOGIST COMMENTS: Follow up right elbow surgery PROTOCOL: AP,Lateral and Oblique views were obtained. COMPARISON: None IMPRESSION: Prosthetic radial head appears unchanged in position. A plate and screw fixation of the ulna remains intact. Patient is imaged in a brace/cast. Alignment does appear to be maintained. No acute hardware complication Electronically signed: Deann Hansen. Transcribed by: [email or web address], User Resident: Electronically Signed by: DEANN HANSEN @ 03/20/2020 12:50 PM Normal [facility] Comment on above: Order Comment: Evalu ate ELBOW RIGHT 3 [facility] 02-14-20 20 ELBOW RIGHT 3 S [facility] Department of Radiology [address] [place] [phone] Patient Name: ASHATNI QUINTERO : 1945 Sex: F Age: Race: White Pt. Location: Patient Status: D Ordered Date: 02/14/2020 1:25:00 PM Completed Date: 02/14/2020 01:27 PM Requesting Provider: SARAHI JARAMILLO Attending Provider: Report Copy To: Signs & Symptoms: M25.521 Pain in right elbow I10 History: Noemy Comments: Evaluate Exam: ELBOW RIGHT [address] [facility] ELBOW RIGHT 3 S 02/14/2020 1:27 PM CLINICAL INDICATIONS: M25.521 Pain in right elbow I10 TECHNOLOGIST COMMENTS: Patient states having ortho follow up for surgery to right elbow. Surgery was on 12/28/2019. QUESTION FOR THE RADIOLOGIST: Evaluate PROTOCOL: AP,Lateral and Oblique views were obtained. COMPARISON: 01/17/2020 FINDINGS: Postoperative changes with fixation of the proximal ulna and radial head. There is no new or acute process. No displaced fracture or joint effusion. IMPRESSION: Stable postoperative changes and alignment without new or acute process. Electronically signed: Lalo Yanes. Transcribed by: [email or web address], User Resident: Electronically Signed by: LALO YANES @ 02/15/2020 12:37 PM Normal [facility] Comment on above: Order Comment: Evalu ate ELBOW RIGHT 3 [facility] 01-17-20 20 ELBOW RIGHT 3 [facility] Department of Radiology [address] [place] [phone] Patient Name: ASHANTI QUINTERO : 1945 Sex: F Age: Race: White Pt. Location: 84 Patient Status: O Ordered Date: 01/17/2020 10:15:00 AM Completed Date: 01/17/2020 10:15 AM Requesting Provider: SARAHI JARAMILLO Attending Provider: SARAHI JARAMILLO Report Copy To: DUSTY SOMMERS Signs & Symptoms: M25.521 Pain in right elbow I10 History: Comments: evaluate Exam: ELBOW RIGHT 3 V[facility] ELBOW RIGHT 3 [facility] 01/17/2020 10:15 AM CLINICAL INDICATIONS: M25.521 Pain in right elbow I10 TECHNOLOGIST COMMENTS: ortho follow up rt elbow fracture with hardware revision 12/28/19 QUESTION FOR THE RADIOLOGIST: evaluate PROTOCOL: AP,Lateral and Oblique views were obtained. COMPARISON: Fluoroscopic images 12/28/2019, right elbow radiographs 12/23/2019 FINDINGS: Splint material obscures bone detail. Plates and screws transfixing the probable region of the removed, with placement of a radial head prosthesis with satisfactory alignment. And screws also transfix the proximal ulna fracture with satisfactory alignment. IMPRESSION: Satisfactory alignment status post hardware revision with radial head arthroplasty, as well as new sideplate and screws transfixing the proximal ulna fracture. Electronically signed: Bryn Tompkins. Transcribed by: [email or web address], User Resident: Electronically Signed by: BRYN TOMPKINS @ 01/17/2020 10:28 AM Normal [facility] Comment on above: Order Comment: #1 rt -ulna BASIC METABOLIC PANELon 11-0 Calcium [Mass/Vol] 9.4 mg/dL Normal 8.6-10.3 [facility] Comment on above: Order Comment: #1 rt -ulna Performed By: #### 3 [id number] #### [facility] [address] [place] [address], [place] Chloride [Moles/Vol] 98 mmol/L Normal 98-107 [facility] Comment on above: Order Comment: #1 rt -ulna Performed By: #### 3 [id number] #### [facility] [address] [place] [address], [place] CO2 [Moles/Vol] 27 mmol/L Normal 21-31 The [facility] Comment on above: Order Comment: #1 rt -ulna Performed By: #### 3 [id number] #### [facility] [address] [place] [address], [facility] Creatinine [Mass/Vol] 1.16 mg/dL Normal 0.60-1.20 [facility] Comment on above: Order Comment: #1 rt -ulna Performed By: #### 3 0338 #### [facility] [address] [place] [address], [facility] eGFR- 56 ml/min/1.73sq m Abnormal >60 [facility] Comment on above: Order Comment: #1 rt -ulna Result Comment: Calc ulation may not be valid for patients over 70 years Performed By: #### 3 [id number] #### [facility] [address] [place] [address], [facility] eGFR- non- 46 ml/min/1.73sq m Abnormal >60 [facility] Comment on above: Order Comment: #1 rt -ulna Result Comment: Calc ulation may not be valid for patients over 70 years Performed By: #### 3 [id number] #### [facility] [address] [place] [address], [place] Glucose [Mass/Vol] 142 mg/dL High 70-100 The [facility] Comment on above: Order Comment: #1 rt -ulna Performed By: #### 3 0338 #### [facility] [address] [place] [address], [place] Potassium [Moles/Vol] 3.9 mmol/L Normal 3.5-5.1 [facility] Comment on above: Order Comment: #1 rt -ulna Performed By: #### 3 0338 #### [facility] [address] [place] [address], [place] Sodium [Moles/Vol] 132 mmol/L Low 136-145 [facility] Comment on above: Order Comment: #1 rt -ulna Performed By: #### 3 0338 #### [facility] [address] Urea nitrogen [Mass/Vol] 22 mg/dL Normal 7-25 [facility] Comment on above: Order Comment: #1 rt -ulna Performed By: #### 3 0338 #### [facility] [address] CBC W/DIFFon 12-29-2019 ABS IMM GRANS 0.1 10*3/uL Normal 0.0-0.2 The [facility] Comment on above: Order Comment: No: D o not add to previous draw Performed By: #### 5 0103 #### [facility] [address] ABS NEUTROPHILS 9.6 10*3/uL High 1.6-7.6 The [facility] Comment on above: Order Comment: No: D o not add to previous draw Performed By: #### 5 0103 #### [facility] [address] [place] [address], [facility] Basophils (Bld) [#/Vol] 0.0 10*3/uL Normal 0.0-0.2 [facility] Comment on above: Order Comment: No: D o not add to previous draw Performed By: #### 5 0103 #### [facility] [address] [place] [address], [facility] Basophils/100 WBC (Bld) 0.2 % Normal 0.0-1.0 [facility] Comment on above: Order Comment: No: D o not add to previous draw Performed By: #### 5 0103 #### [facility] [address] [place] [address], [facility] Eosinophils (Bld) [#/Vol] 0.0 10*3/uL Normal 0.0-0.5 [facility] Comment on above: Order Comment: No: D o not add to previous draw Performed By: #### 5 0103 #### [facility] [address] [place] [address], [facility] Eosinophils/100 WBC (Bld) 0.1 % Normal 0.0-6.0 [facility] Comment on above: Order Comment: No: D o not add to previous draw Performed By: #### 5 0103 #### [facility] [address] [place] [address], [facility] Erythrocyte distribution width (RBC) [Ratio] 13.7 % Normal 11.5-15.0 [facility] Comment on above: Order Comment: No: D o not add to previous draw Performed By: #### 5 0103 #### [facility] [address] [place] [address], [facility] Hematocrit (Bld) [Volume fraction] 33.7 % Low 36.0-45.0 [facility] Comment on above: Order Comment: No: D o not add to previous draw Performed By: #### 5 0103 #### [facility] [address] [place] [place] [address], [facility] Hemoglobin (Bld) [Mass/Vol] 10.7 g/dL Low 12.0-15.0 [facility] Comment on above: Order Comment: No: D o not add to previous draw Performed By: #### 5 0103 #### [facility] [address] [place] [address], [facility] IMMATURE GRANS 0.5 % Normal 0.0-1.0 The [facility] Comment on above: Order Comment: No: D o not add to previous draw Performed By: #### 5 0103 #### [facility] [address] [place] [address], [facility] Lymphocytes (Bld) [#/Vol] 1.4 10*3/uL Normal 1.2-4.0 [facility] Comment on above: Order Comment: No: D o not add to previous draw Performed By: #### 5 0103 #### [facility] [address] [place] [address], [facility] Lymphocytes/100 WBC (Bld) 11.0 % Low 20.0-45.0 [facility] Comment on above: Order Comment: No: D o not add to previous draw Performed By: #### 5 0103 #### [facility] [address] [place] [address], [facility] MCH (RBC) [Entitic mass] 28.4 pg Normal 27.0-33.0 [facility] Comment on above: Order Comment: No: D o not add to previous draw Performed By: #### 5 0103 #### [facility] [address] [place] [address], [facility] MCHC (RBC) [Mass/Vol] 31.8 g/dL Low 32.0-35.0 [facility] Comment on above: Order Comment: No: D o not add to previous draw Performed By: #### 5 0103 #### [facility] [address] [place] [address], [facility] MCV (RBC) [Entitic vol] 89.4 fL Normal 82.0-98.0 [facility] Comment on above: Order Comment: No: D o not add to previous draw Performed By: #### 5 0103 #### [facility] [address] [place] [address], [facility] Monocytes (Bld) [#/Vol] 1.7 10*3/uL High 0.1-1.0 [facility] Comment on above: Order Comment: No: D o not add to previous draw Performed By: #### 5 0103 #### [facility] [address] [place] [address], [facility] MONOS 13.3 % High 5.0-12.0 [facility] Comment on above: Order Comment: No: D o not add to previous draw Performed By: #### 5 0103 #### [facility] [address] [place] [address], [place] Neutrophils/100 WBC (Bld) 74.9 % High 40.0-72.0 [facility] Comment on above: Order Comment: No: D o not add to previous draw Performed By: #### 5 0103 #### [facility] [address] [place] [address], [place] Nucleated RBC/100 WBC (Bld) [Ratio] 0 % Normal 0-0 [facility] Comment on above: Order Comment: No: D o not add to previous draw Performed By: #### 5 0103 #### [facility] [address] [place] [address], [place] PLAT CNT 299 10*3/uL Normal 150-400 [facility] Comment on above: Order Comment: No: D o not add to previous draw Performed By: #### 5 0103 #### [facility] [address] [place] [address], [place] RBC (Bld) [#/Vol] 3.77 10*6/uL Low 3.80-5.00 The [facility] Comment on above: Order Comment: No: D o not add to previous draw Performed By: #### 5 0103 #### [facility] [address] [place] [address], [place] WBC (Bld) [#/Vol] 12.86 10*3/uL High 4.00-10.60 [facility] Comment on above: Order Comment: No: D o not add to previous draw Performed By: #### 5 0103 #### [facility] [address] [place] [address], [place] Operative Reporton 0 Operative Report MR#: [id number] 2 [facility] Pt. Name: Ashanti Quintero Room #: 6AB [id number] Discharge Date: Birthdate: 1945 OPERATIVE REPORT DATE OF SURGERY: 12/28/2019 SURGEON: Roberto Carlos Oneill M.D. PREOPERATIVE DIAGNOSIS: Right olecranon fracture nonunion, right radial neck fracture nonunion. PROCEDURE PERFORMED: 1. Right radial head replacement. 2. Revision fixation right olecranon fracture with a nonunion takedown. 3. Iliac crest bone graft harvest application. ATTENDING PHYSICIAN: Roberto Carlos Oneill M.D. ASSISTANTS: 1. Melita Cervantes M.D. 2. Dale Whitt MD. 3. William Moody MD. ANESTHESIA: General endotracheal. SPECIMENS: Cultures x2. IMPLANTS: [employer] 9-hole ulna plate with associated locking and nonlocking screws, Glovico radial head replacement, 6.5 mm +4 stem, a 22 mm diameter head. ESTIMATED BLOOD LOSS: Minimal. TOURNIQUET TIME: 131 minutes. DRAINS: x1. COMPLICATIONS: None. INDICATION FOR PROCEDURE: The patient is a 74-year-old female, who previously sustained a right proximal ulna and radial neck fracture, type 4 Monteggia variant, and underwent open reduction and internal fixation on January 19, 2019. The patient was doing well postoperatively; however, recently developed increasing pain, swelling, and palpable hardware. She presented to clinic where x-rays were obtained, which demonstrated hardware failure of the proximal ulna fixation as well as the radial head. At this point, we discussed revision fixation with bone grafting as well as possible radial head replacement with the patient. She elected to proceed with the aforementioned procedure. DESCRIPTION OF PROCEDURE: The patient was met in the preoperative holding area. Informed consent confirmed. The operative extremity was marked. The patient was taken back to the operating room and placed supine on the operating table. The right upper extremity and the left lower extremity were then prepped and draped in a standard sterile fashion. We began our procedure with a surgical time-out that confirmed the correct operative site, procedure, and laterality. We began our procedure focusing on the iliac crest bone graft harvest. A 4 cm incision was made located over the iliac crest that was readily palpable. Skin was sharply incised with a #10 blade scalpel and subcutaneous tissues were meticulously dissected. The iliac crest was then encountered and visualized. Using osteotomes, a trapdoor was made. The bone graft was then harvested with a curette. Once sufficient amount was achieved, the trapdoor was placed back. Gel-Foam thrombin was then placed to the wound to achieve hemostasis. The layers of the fascia were then repaired with 0 Vicryl. Subcutaneous tissues were then closed with 0 followed by 2-0 Vicryl, and the skin was closed with 4-0 Novafil. A drain was placed prior to closure and will remain in place until less than 50 mL per 8 hours. We were satisfied with our flexion procedure and we then focused our attention on the right upper extremity. The limb was exsanguinated and the tourniquet was inflated to 300 mmHg. Utilizing the previous subcutaneous ulnar incision, the skin was sharply incised with a #10 blade scalpel. The skin incision was lengthened both proximally and distally compared to the prior incision. Subcutaneous tissues were then meticulously dissected and hemostasis was achieved. The plate was readily encountered and palpable during dissection. The ulna was then encountered subcutaneously and the plate and screws were then easily removed. Once the hardware was removed, the ulna was evaluated and cultures were taken. There appeared to be no evidence of gross infection or evidence of a hypertrophic nonunion. The soft tissue that was interposed between the fracture fragments was gently debrided and cleared out. We then were able to obtain our reduction with Lobster claws. A [employer] 9-hole ulnar plate was then placed and held into place with provisional clamps. AP and lateral views were then obtained demonstrating improved reduction and appropriate plate placement. We then placed locking screws proximally followed by nonlocking screws distally. Once all screws were placed, final x-ray images were obtained demonstrating satisfactory revision of open reduction internal fixation. We then turned our attention to the right radial head. Utilizing the same posterior based incision, a lateral dissection was completed between the anconeus and ECU muscles. The radial head was readily identified as well as the retained hardware. The screws appeared to be intact; however, were not engaged with the plate, and were easily removed. Once removed, the fracture fragment was examined and there appeared to be minimal to no evidence of healing. At this point, given the patient's bone loss noted to the radial neck ulnarly, and in the setting of a nonun (more content not included)... Normal [facility] *ANAEROBIC CULTUREon 11-03-2 020 *ANAEROBIC CULTURE Clinical Report: (D) Specimen/Source: SWAB/INTRAOP SPEC Collected: 12/28/2019 11:09 Status: Final Last Updated: 01/02/2020 10:30 (1) #2 rt-elbow CULT RES (Final) No Anaerobes Isolated 5 Days Normal [facility] Comment on above: Order Comment: #2 rt -elbow Performed By: #### 5 0103 #### [facility] [address] *ANAEROBIC CULTURE Clinical Report: (D) Specimen/Source: SWAB/INTRAOP SPEC Collected: 12/28/2019 09:55 Status: Final Last Updated: 01/02/2020 10:30 (1) #1 rt-ulna CULT RES (Final) No Anaerobes Isolated 5 Days Normal [facility] Comment on above: Order Comment: #1 rt -ulna Performed By: #### 3 0312 #### [facility] [address] *TISSUE CULTUREon 12-28-2019 *TISSUE CULTURE Clinical Report: (D) Specimen/Source: TISSUE/INTRAOP SPEC Collected: 12/28/2019 09:55 Status: Final Last Updated: 01/02/2020 06:29 (1) #1 rt-ulna GRAM (Final) Few Polys No Bacteria Seen CULT RES (Final) No Growth Day 5 Normal [facility] Comment on above: Order Comment: #1 rt -ulna Performed By: #### 3 0338 #### [facility] [address] *WOUND CULTUREon 12-28-2019 *WOUND CULTURE Clinical Report: (D) Specimen/Source: WOUND/INTRAOP SPEC Collected: 12/28/2019 11:09 Status: Final Last Updated: 01/02/2020 06:29 (1) #2 rt-elbow GRAM (Final) Rare Polys No Bacteria Seen CULT RES (Final) No Growth Day 5 Normal [facility] Comment on above: Order Comment: #2 rt -elbow Performed By: #### 3 0343 #### [facility] [address] [place], [place] [address] ELBOW RIGHT 2 [facility] 12-28-19 ELBOW RIGHT 2 [facility] Department of Radiology [address] [place] [address] Patient Name: ASHANTI QUINTERO : 1945 Sex: F Age: Race: White Pt. Location: OUTP Patient Status: O Ordered Date: 12/28/2019 9:15:00 AM Completed Date: 12/28/2019 12:05 PM Requesting Provider: ROBERTO CARLOS ONEILL Attending Provider: ROBERTO CARLOS ONEILL Report Copy To: Signs & Symptoms: REVISION ORIF RIGHT ELBOW(RADIUS AND ULNA), ICBG, POSS RADIAL HEAD REPLACEMENT, POSS BONE BIOPSY History: Comments: REVISION ORIF RIGHT ELBOW(RADIUS AND ULNA), ICBG, POSS RADIAL HEAD REPLACEMENT, POSS BONE BIOPSY Exam: ELBOW RIGHT [address] [facility] ELBOW RIGHT [address] [facility] 12/28/2019 12:05 PM CLINICAL INDICATIONS: REVISION ORIF RIGHT ELBOW(RADIUS AND ULNA), ICBG, POSS RADIAL HEAD REPLACEMENT, POSS BONE BIOPSY TECHNOLOGIST COMMENTS: Dr Oneill used 43 seconds of fluoro time for orif revision of right elbow zayas c-arm in 87 out 1208 QUESTION FOR THE RADIOLOGIST: REVISION ORIF RIGHT ELBOW(RADIUS AND ULNA), ICBG, POSS RADIAL HEAD REPLACEMENT, POSS BONE BIOPSY PROTOCOL: AP(PA) and Lateral views were obtained. COMPARISON: 12/23/2019 FINDINGS: 9 intraoperative images are obtained using C-arm documenting fluoroscopic guidance during revision of right elbow fracture and right radial head replacement. Total fluoroscopy time is 43 seconds. Images are referred to the clinical service for correlation. Radiation exposure is 0.75 mGy IMPRESSION: Images are obtained for documentation purposes Electronically signed: Lizabeth Cedillo. Transcribed by: [email or web address], User Resident: Electronically Signed by: DELMIANGELA XUAN @ 12/28/2019 02:39 PM Normal [facility] Comment on above: Order Comment: #1 rt -ulna POC GLUCOSE LABon 12-28-2019 Glucose [Mass/Vol] 105 mg/dL High 70-100 [facility] Comment on above: Performed By: #### [id number] #### [facility] [address] *MRSA/MSSA CULTUREon 020 *MRSA/MSSA CULTURE Clinical Report: (D) Specimen/Source: NASAL SWAB/NARES Collected: 12/25/2019 09:40 Status: Final Last Updated: 12/26/2019 10:11 ISO (Final) No Methicillin Resistant Staphylococcus aureus Isolated (MRSA) ISO (Final) No Methicillin Sensitive Staphylococcus aureus Isolated (MSSA) Normal [facility] Comment on above: Performed By: #### 5 [id number] #### [facility] [address] *SARS-CoV-2 COVID-19on 12-24 SARS-CoV-2 (COVID-19) RNA MICHAELLE+probe Ql (Unsp spec) Not detected Normal Not Detected [facility] Comment on above: Order Comment: The A ptima SARS-CoV-2 assay is a nucleic acid amplification test intended for the qualitative detection of RNA from SARS-CoV-2 isolated and purified from nasopharyngeal (LOOKBACK COORDINATOR),oropharyngeal (OP), nasal swab, sputum, and bronchoalveolar lavage (BAL) specimens from patients with signs and symptoms of infection who are suspected of COVID-19. Results are for the identification of SARS-CoV-2 RNA. The SARS-CoV-2 RNA is generally detectable during the acute phase of infection. The Aptima SARS-CoV-2 Assay on the [employer] system is intended for use by laboratory personnel specifically instructed and trained in the operation of the [employer] [place] [employer] system. The Aptima SARS-CoV-2 assay is only for use under the Food and Drug Administration Emergency Use Authorization. Testing is limited to laboratories certified under the Clinical Laboratory Improvement Amendments of 1988 (CLIA), 42 U.S.C. ???263a, to perform high complexity tests. Not Detected: Not detected does not preclude SARS-CoV-2 infection and should not be used as the sole basis for patient management decisions. Not detected results must be combined with clinical observations, patient history, and epidemiological information. Performed By: #### 3 [id number] #### [facility] [address] APTTon 12-25-2019 aPTT Coag (Bld) [Time] 38.6 s High 25.0-35.0 [facility] Comment on above: Result Comment: ALL RESULTS MUST BE INTERPRETED WITH RESPECT TO BLOOD DRAWING ARTIFACT OR DILUTION ERROR OF ANTICOAGULANT AT THE TIME OF SAMPLING. THE APTT SHOULD NOT BE USED TO MONITOR UNFRACTIONATED HEPARIN THERAPY, THIS LABORATORY NO LONGER HAS AN ESTABLISHED THERAPEUTIC RANGE BASED ON THE APTT. IT IS RECOMMENDED THAT THE UFH - HEPARIN ASSAY (ANTI-XA ACTIVITY) BE USED FOR THIS PURPOSE. Performed By: #### 3 [id number] #### [facility] [address] BASIC METABOLIC PANELon 11-26 Calcium [Mass/Vol] 10.0 mg/dL Normal 8.6-10.3 [facility] Comment on above: Performed By: #### 0 0071 #### [facility] [address] [place] [address], [facility] Chloride [Moles/Vol] 102 mmol/L Normal 98-107 [facility] Comment on above: Performed By: #### 0 0071 #### [facility] [address] [facility] [place] [address], [facility] CO2 [Moles/Vol] 27 mmol/L Normal 21-31 [facility] Comment on above: Performed By: #### 0 0071 #### [facility] [address] [place] [address], [place] Creatinine [Mass/Vol] 1.47 mg/dL High 0.60-1.20 [facility] Comment on above: Performed By: #### 0 0071 #### [facility] [address] [place] [address], [place] eGFR- 42 ml/min/1.73sq m Abnormal >60 [facility] Comment on above: Result Comment: Calc ulation may not be valid for patients over 70 years Performed By: #### 0 0071 #### [facility] [address] [place] [address], [place] eGFR- non- 35 ml/min/1.73sq m Abnormal >60 [facility] Comment on above: Result Comment: Calc ulation may not be valid for patients over 70 years Performed By: #### 0 0071 #### [facility] [address] [place] [address], [place] Glucose [Mass/Vol] 113 mg/dL High 70-100 [facility] Comment on above: Performed By: #### 0 0071 #### [facility] [address] [place] [address], [place] Potassium [Moles/Vol] 4.4 mmol/L Normal 3.5-5.1 [facility] Comment on above: Performed By: #### 0 0071 #### [facility] [address] [place] [address], [place] Sodium [Moles/Vol] 138 mmol/L Normal 136-145 [facility] Comment on above: Performed By: #### 0 0071 #### [facility] [address] [place] [address], [place] Urea nitrogen [Mass/Vol] 30 mg/dL High 7-25 The [facility] Comment on above: Performed By: #### 0 0071 #### [facility] [address] [place] [address], [facility] CBC W/DIFFon 12-25-2019 ABS IMM GRANS 0.1 10*3/uL Normal 0.0-0.2 The [facility] Comment on above: Performed By: #### 5 0103 #### [facility] [address] [facility] [place] [place] [address], [facility] ABS NEUTROPHILS 5.3 10*3/uL Normal 1.6-7.6 The [facility] Comment on above: Performed By: #### 5 3 #### [facility] [address] [place] [address], [facility] Basophils (Bld) [#/Vol] 0.0 10*3/uL Normal 0.0-0.2 [facility] Comment on above: Performed By: #### 5 3 #### [facility] [address] [facility] [place] [place] [address], [facility] Basophils/100 WBC (Bld) 0.4 % Normal 0.0-1.0 [facility] Comment on above: Performed By: #### 5 102 #### [facility] [address] [facility] [place] [address], [facility] Eosinophils (Bld) [#/Vol] 0.5 10*3/uL Normal 0.0-0.5 [facility] Comment on above: Performed By: #### 3 #### [facility] [address] [place] [address], [facility] Eosinophils/100 WBC (Bld) 4.6 % Normal 0.0-6.0 [facility] Comment on above: Performed By: #### 5 102 #### [facility] [address] [place] [address], [facility] Erythrocyte distribution width (RBC) [Ratio] 13.5 % Normal 11.5-15.0 [facility] Comment on above: Performed By: #### 5 0103 #### [facility] [address] [place] [address], [facility] Hematocrit (Bld) [Volume fraction] 40.7 % Normal 36.0-45.0 [facility] Comment on above: Performed By: #### 5 0103 #### [facility] [address] [place] [address], [facility] Hemoglobin (Bld) [Mass/Vol] 13.2 g/dL Normal 12.0-15.0 [facility] Comment on above: Performed By: #### 5 0103 #### [facility] [address] [place] [address], [facility] IMMATURE GRANS 0.5 % Normal 0.0-1.0 [facility] Comment on above: Performed By: #### 5 0103 #### [facility] [address] [facility] [place] [address], [facility] Lymphocytes (Bld) [#/Vol] 3.4 10*3/uL Normal 1.2-4.0 [facility] Comment on above: Performed By: #### 5 0103 #### [facility] [address] [facility] [place] [address], [facility] Lymphocytes/100 WBC (Bld) 33.2 % Normal 20.0-45.0 [facility] Comment on above: Performed By: #### 5 0103 #### [facility] [address] [place] [address], [facility] MCH (RBC) [Entitic mass] 29.1 pg Normal 27.0-33.0 [facility] Comment on above: Performed By: #### 5 3 #### [facility] [address] [place] [id number], [facility] MCHC (RBC) [Mass/Vol] 32.4 g/dL Normal 32.0-35.0 [facility] Comment on above: Performed By: #### 5 0103 #### [facility] [address] [place] [address], [facility] MCV (RBC) [Entitic vol] 89.6 fL Normal 82.0-98.0 [facility] Comment on above: Performed By: #### 5 0103 #### [facility] [address] [facility] [place] [address], [facility] Monocytes (Bld) [#/Vol] 0.9 10*3/uL Normal 0.1-1.0 [facility] Comment on above: Performed By: #### 5 0103 #### [facility] [address] [facility] [place] [address], [facility] MONOS 9.3 % Normal 5.0-12.0 [facility] Comment on above: Performed By: #### 5 0103 #### [facility] [address] [facility]. [address] Neutrophils/100 WBC (Bld) 52.0 % Normal 40.0-72.0 [facility] Comment on above: Performed By: #### 5 0103 #### [facility] [address] [place] [address], [facility] Nucleated RBC/100 WBC (Bld) [Ratio] 0 % Normal 0-0 [facility] Comment on above: Performed By: #### 5 0103 #### [facility] [address] [place] [address], [facility] PLAT CNT 399 10*3/uL Normal 150-400 [facility] Comment on above: Performed By: #### 5 3 #### [facility] [address] [place] [address], [facility] RBC (Bld) [#/Vol] 4.54 10*6/uL Normal 3.80-5.00 The [facility] Comment on above: Performed By: #### 5 0103 #### [facility] [address] WBC (Bld) [#/Vol] 10.10 10*3/uL Normal 4.00-10.60 [facility] Comment on above: Performed By: #### 5 0103 #### [facility] [address] PROTHROMBIN TIMEon 12-24-202 0 INR Coag (PPP) [Relative time] 1.12 {INR} Normal 0.91-1.16 [facility] Comment on above: Result Comment: ACCC P RECOMMENDED INR FOR WARFARIN THERAPY ------- ------- CONDITION INR PROPHYLAXIS OF VENOUS THROMBOSIS 2-3 (HIGH-RISK SURGERY) TREATMENT OF VENOUS THROMBOSIS 2-3 TREATMENT OF PULMONARY EMBOLISM 2-3 PREVENTION OF SYSTEMIC EMBOLISM: 2-3 ACUTE MYOCARDIAL INFARCTION TISSUE HEART VALVES VALVULAR HEART DISEASE ATRIAL FIBRILLATION RECURRENT SYSTEMIC EMBOLISM MECHANICAL HEART VALVE 2.5-3.5 FROM: ORAL ANTICOAGULANTS. MECHANISM OF ACTION, CLINICAL EFFECTIVENESS, AND OPTIMAL THERAPEUTIC RANGE. CHEST 1995;108:231S-246S. Performed By: #### 3 0338 #### [facility] [address] [place] [address], [facility] PT Coag (PPP) [Time] 14.4 s Normal 12.3-14.8 [facility] Comment on above: Result Comment: ALL RESULTS MUST BE INTERPRETED WITH RESPECT TO BLOOD DRAWING ARTIFACT OR DILUTION ERROR OF ANTICOAGULANT AT THE TIME OF SAMPLING. Performed By: #### 3 0338 #### [address] [place], [place] [address] ELBOW RIGHT 3 [facility] 12-23-19 ELBOW RIGHT 3 S [facility] Department of Radiology [address] [place] [phone] Patient Name: ASHANTI QUINTERO : 1945 Sex: F Age: Race: White Pt. Location: Patient Status: O Ordered Date: 12/23/2019 10:05:00 AM Completed Date: 12/23/2019 10:09 AM Requesting Provider: SARAHI JARAMILLO Attending Provider: SARAHI JARAMILLO Report Copy To: Signs & Symptoms: M25.521 Pain in right elbow I10 History: Comments: Evaluate Exam: ELBOW RIGHT 3 S ELBOW RIGHT [address] [facility] CLINICAL INFORMATION: ortho follow up rt elbow fracture with hardware, pt states is bothersome most of the time VIEWS: AP,Lateral and Oblique views were obtained. COMPARISON: 12/06/2019. IMPRESSION: 1. Extensive surgical fixation of the elbow with ulnar plate and screws as well as a small plate in the radial head with cortical screw noted. No change in alignment. There is some soft tissue swelling identified. There is a small elbow joint effusion. No new fractures are identified. Mild osteopenia. Electronically signed: Guillermina Gomez. Transcribed by: [email or web address], User Resident: Electronically Signed by: GUILLERMINA GOMEZ @ 12/23/2019 10:48 AM Normal [facility] Comment on above: Order Comment: #1 rt -ulna C REACTIVE PROTEINon 020 CRP [Mass/Vol] 7.1 mg/L High 0.0-7.0 The Melissa game[facility] Comment on above: Performed By: #### 3 0338 #### [address] ELBOW RIGHT 3 VWSon 12-06-19 20 ELBOW RIGHT 3 VWS [facility] Department of Radiology [address] [place] [id number] Patient Name: ASHANTI QUINTERO : 1945 Sex: F Age: Race: White Pt. Location: Patient Status: O Ordered Date: 12/06/2019 10:15:00 AM Completed Date: 12/06/2019 10:16 AM Requesting Provider: SARAHI JARAMILLO Attending Provider: SARAHI JARAMILLO Report Copy To: DUSTY SOMMERS Signs & Symptoms: S52.121D Disp fx of head of r radius, subs for clos fx w routn heal I10 History: [place] Comments: Views (X-RAY, ELBOW): AP, Lateral, Oblique Exam: ELBOW RIGHT 3 S ELBOW RIGHT 3 VWS 12/06/2019 10:16 AM CLINICAL INDICATIONS: S52.121D Disp fx of head of r radius, subs for clos fx w routn heal I10 TECHNOLOGIST COMMENTS: rt elbow surgery 01/17/19 check healing QUESTION FOR THE RADIOLOGIST: Views (X-RAY, ELBOW): AP, Lateral, Oblique PROTOCOL: AP,Lateral and Oblique views were obtained. COMPARISON: 11/09/2019 FINDINGS: Hardware transfixes the proximal radius and ulna. There is now posterior displacement of the visualized proximal radius and ulna. The distal screw transfixing the ulna is now retracted from the underlying cortex. There is overlying soft tissue swelling. No displaced fat pad of hemarthrosis. IMPRESSION: Interval posterior displacement of the proximal radius and ulna and displaced distal screws transfixing the proximal ulna now evident. Electronically signed: Kevin Revelse. Transcribed by: [email or web address], User Resident: Electronically Signed by: KEVIN REVELES @ 12/06/2019 10:25 AM Normal [facility] Comment on above: Order Comment: #1 rt -ulna SEDIMENTATION RATEon 020 SED RATE 25 mm/hr High 0-20 [facility] Comment on above: Performed By: #### 3 0338 #### [address] UPPER EXTREMITY WO CONTRA ST RIGHTon 12-03-2019 CT UPPER EXTREMITY WO CONTRAST RIGHT [facility] Department of Radiology [address] [place] [phone] Patient Name: ASHANTI QUINTERO : 1945 Sex: F Age: Race: White Pt. Location: Patient Status: O Ordered Date: 11/09/2019 1:25:00 PM Completed Date: 12/03/2019 11:10 AM Requesting Provider: SARAHI JARAMILLO Attending Provider: SARAHI JARAMILLO Report Copy To: DUSTY SOMMERS Signs & Symptoms: S52.121D Disp fx of head of r radius, subs for clos fx w routn heal I10 History: Noemy, PHONE:[phone],* NEEDS ORTHO F/[place] [id number] per medicare passed med nec *er *daughter tested positive covid, patient quarantine period ends 11/30/19 Comments: Evaluate, CT scan right elbow Exam: CT UPPER EXTREMITY WO CONTRAST RIGHT CT UPPER EXTREMITY WO CONTRAST RIGHT 12/03/2019 11:11 AM SIGNS AND SYMPTOMS: S52.121D Disp fx of head of r radius, subs for clos fx w routn heal I10 TECHNOLOGIST COMMENTS: H/o RT elbow fx with surgery 12/2018. F/u evaluate healing progression. limited ROM QUESTION FOR THE RADIOLOGIST: Evaluate, CT scan right elbow PROTOCOL: Axial CT images of the extremity were obtained without IV contrast. TECHNIQUE: Multidetector CT axial slices of the left elbow without IV contrast. Multiplanar reformats were performed and viewed on a separate workstation and reviewed to further define anatomy and possible pathology. Appropriate CT dose lowering techniques were utilized. COMPARISON: January 18, 2019 FINDINGS: The olecranon and radial head hardware appears intact without evidence of migration or complication. There is some artifact lowers sensitivity of the exam. Persistent fracture line remains at the radial neck medially. Radial head articular surface appears intact. There is nonspecific soft tissue prominence posterior to the olecranon and along the course of the hardware. Correlate with physical examination. There is also enlargement and infiltration of 2 lymph nodes along the distal anterior surface of the humerus and antecubital fossa. Axial measurements are 1.8 x 1.5 cm. IMPRESSION: * Stable appearance of hardware and alignment compared to 2019. * Enlarged lymph nodes upper antecubital fossa. Electronically signed: Patrick Jacinto. Transcribed by: [email or web address], User Resident: PATRICK JACINTO Electronically Signed by: PATRICK JACINTO @ 12/03/2019 12:11 PM I personally read this/these film(s) with this resident Normal [facility] Comment on above: Order Comment: #1 rt -ulna ELBOW RIGHT 3 Son 11-09-19 20 ELBOW RIGHT 3 S [facility] Department of Radiology [address] [place] [phone] Patient Name: ASHANTI QUINTERO : 1945 Sex: F Age: Race: White Pt. Location: Patient Status: Ordered Date: 11/09/2019 11:05:00 AM Completed Date: 11/09/2019 11:10 AM Requesting Provider: SARAHI JARAMILLO Attending Provider: Report Copy To: Signs & Symptoms: M25.521 Pain in right elbow I10 History: Noemy Comments: Evaluate Exam: ELBOW RIGHT 3 S ELBOW RIGHT 3 S 11/09/2019 11:10 AM CLINICAL INDICATIONS: M25.521 Pain in right elbow I10 TECHNOLOGIST COMMENTS: right elbow surgery 01/13/19 f/u QUESTION FOR THE RADIOLOGIST: Evaluate PROTOCOL: AP,Lateral and Oblique views were obtained. COMPARISON: 08/23/2019 FINDINGS: There are hardware stabilizing the proximal radial head and ulnar fractures. There is well-corticated the fracture line with none union. IMPRESSION: Stable exam with no gross osseous union of the fracture sites. Electronically signed: Jimmy Steiner. Transcribed by: [email or web address], User Resident: JIMMY STEINER Electronically Signed by: JIMMY STEINER @ 11/09/2019 11:15 AM I personally read this/these film(s) with this resident Normal [facility] Comment on above: Order Comment: Evalu ate Vital Signs Date Time Vital Sign Value Performing Clinician Evy mojica 09-27-2019 11:19-0400 BP Diastolic 79 mm[Hg] [facility] [place] , [place] 09-27-2019 11:19-0400 BP Systolic 125 mm[Hg] [facility] [place] , [place] 09-27-2019 11:19-0400 Pulse (Heart Rate) 58 /min [facility] [place], [place] 09-27-2019 11:19-0400 Pulse Oximetry 97 % [facility] [place] , [place] 09-27-2019 11:19-0400 Respiratory Rate 13 /min [facility] [place] Encounters Encounter Date Encounter Type Care Provider Facility Start: 05-28-2023 End: 05-28-2023 ambulatory ERICK FERRIS Not Available Start: 04-28-2023 End: 04-28-2023 ambulatory DUSTY SOMMERS Not Available Start: 10-01-2021 End: 10-01-2021 ambulatory BLADIMIR SALGUERO Facility: Start: 10-12-2020 End: 10-13-2020 ambulatory BLADIMIR SALGUERO [facility] Start: 10-12-2020 End: 10-12-2020 Subsequent hospital visit by physician Dusty Sommers MD Work Phone: [facility] Comment on above: Atrial fibrillation, new onset (HCC) Start: 05-01-2020 End: 05-02-2020 ambulatory DUSTY SOMMERS Facility:[facility] Start: 01-17-2020 End: 01-18-2020 ambulatory SARAHI JARAMILLO Facility:[facility] Start: 12-28-2019 End: 12-29-2019 ambulatory ROBERTO CARLOS ONEILL Facility:[facility] Start: 12-23-2019 End: 12-24-2019 ambulatory SARAHI JARAMILLO Facility:[facility] Start: 12-03-2019 End: 12-04-2019 ambulatory SARAHI JARAMILLO Facility:[facility] Start: 09-27-2019 End: 09-27-2019 Subsequent hospital visit by physician Paula Stress [facility] Comment on above: Atrial fibrillation, new onset (HCC) Start: 09-07-2019 End: 09-07-2019 Subsequent hospital visit by physician [facility] Echo Room [facility] ECHO Comment on above: Abnormal EKG; Atrial fibrillation, unspecified type (HCC); History of cardiac murmur Procedures Date Procedure Procedure Detail Performing Clinician Start: 10-12-2020 Basic metabolic pane l calcium total Bladimir Salguero MD Work Phone: Start: 12-28-2019 ANESTH UPPER ARM SURGERY ROBERTO CARLOS EBRAHEIM Start: 12-28-2019 REPAIR/GRAFT RADIUS OR ULNA ROBERTO CARLOS EBRAHEIM Start: 12-28-2019 TREAT RADIUS FRACTURE N ABIL EBRAHEIM Start: 09-27-2019 End: 09-27-2019 Ecg routine ecg w/least 12 lds w/i&r Bladimir Salguero Work Phone: Plan of Treatment Date Care Activity Detail Author Start: 10-12-2021 Creatinine measurement Creatinine mo nitoring [facility] [employer] Phone: Start: 10-12-2021 Potassium monitoring Potassium monit oring [facility] [employer] Phone: Start: 10-11-2021 End: 10-11-2021 Patient encounter procedure 10/11/2021 Office Visit Cardiology Bladimir Salguero MD [address] [place] [address] [facility] [employer] Start: 09-18-2021 Lipid panel Lipid screen [facility] Work Phone: Start: 10-25-2020 Influenza vaccination Flu vaccine (# 1) [facility] [employer] Phone: Start: 02-21-2020 Annual Wellness Visi t (AWV) Annual Wellness Visit (AWV) [facility] [employer] Phone: Start: 10-28-2019 End: 10-28-2019 Office Visit 10/28/2019 Office Visit Cardiology Bladimir Salguero MD [address] [place] [address] [facility] [employer] Start: 10-26-2019 Influenza vaccination Flu vaccine (# 1) [place], [place] Start: 09-15-2019 End: 09-15-2019 Office Visit 09/15/2019 Office Visit Cardiology Bladimir Salguero MD [address] [place] [address] [facility] [employer] Start: 06-14-2011 Pneumococcal 65+ yea rs Vaccine (1 of 1 - PPSV23) Pneumococcal 65+ years Vaccine (1 of 1 - PPSV23) [place], [place] Start: 2001 Screening for osteoporosis DEXA (modify frequency per FRAX score) [place], [place] Start: 1996 Screening for malign ant neoplasm of breast Breast cancer screen [place], [place] Start: 1996 Screening for malign ant neoplasm of colon Colon cancer screen colonoscopy [place], [place] Start: 1996 Shingles Vaccine (1 of 2) Shingles Vaccine (1 of 2) [place], [place] Start: 06-14-1991 Screening for malign ant neoplasm of colon Colon cancer screen colonoscopy [facility] Work Phone: Start: 1986 Lipid panel Lipid screen [place], [place] Start: 1965 DTaP/Tdap/Td vaccine (1 - Tdap) DTaP/Tdap/Td vaccine (1 - Tdap) [place], [place] Start: 1945 Hepatitis C screening Hepatitis C sc reen [place], [place] End: 09-27-2019 Cardioversion Defibrillation Cardioversion Defibrillation Cardiac Cath Routine Atrial fibrillation, new onset (HCC) 1 Occurrences starting 09/27/2019 until 09/27/2019 [place], [place] Comment on above: 1 Occurrences starti ng 09/27/2019 until 09/27/2019 End: 09-07-2019 ECHO Complete 2D W Doppler W Color ECHO Complete 2D W Doppler W Color Echocardiography Routine Abnormal EKG Atrial fibrillation, unspecified type (HCC) History of cardiac murmur 1 Occurrences starting 09/07/2019 until 09/07/2019 [place], [place] Comment on above: 1 Occurrences starti ng 09/07/2019 until 09/07/2019 EKG 12 [facility] [place] Payers Date Payer Category Payer Medicare MEDICARE MEDICAR E PART A AND B [id number] 2019-Present [phone] [address] [address] [place] [address] [id number] 2014 Unknown [employer] [address] [id number] 2014-Present [phone] [address] [place] [address] [id number] 1958 Medicare [id number] 1959 Unknown [id number] 1945 Unknown [id number] 1945 Unknown [id number] 1945 Unknown [id number] 1945 Unknown [id number] 1945 Unknown [id number] [id number] 1945 Unknown [id number] 1945 Unknown [id number] [id number] 1945 Unknown [id number] [id number] 1945 Unknown [id number] Social History Date Type Detail Facility [facility] Start: 1945 Sex Assigned At Not on file [facility] [employer] Start: 09-15-2019 End: 10-12-2020 Tobacco smoking status [facility] Never smoker [employer] Start: 09-15-2019 End: 10-12-2020 Tobacco use and exposure Never used [employer] [facility] Nunes Evaluation note Note Date & Type Note Facility Evaluation note Diagnosis Atrial fibrillation, new onset (HCC) Atrial fibrillation documented in this encounter [employer] Phone: Reason for Referral Status Reason Specialty Diagnoses / Procedures Referre d By Contact Referred To Contact Closed Cardiology Diagnoses Abnormal EKG Atrial fibrillation, unspecified type (HCC) History of cardiac murmur Procedures ECHO Complete 2D W Doppler W Color Bladimir Salguero MD [address] [place] [address] Assessments Diagnosis Abnormal EKG Nonspecific abnormal electrocardiogram (ECG) (EKG) Atrial fibrillation, unspecified type (HCC) History of cardiac murmur Personal history of other diseases of circulatory system Diagnosis Atrial fibrillation, new onset (HCC) Atrial fibrillation Advance Directives No Advanced Directives Records FoundDocuments on File Type Date Recorded 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 Advance Directives and Living Will Power of Supervisor [employer] Documents on File Type Date Recorded 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 ACP-Advance Directive ACP-Power of Supervisor [employer] Summary Purpose Family History No Family History Records FoundNo Family History Records FoundNo Family History Records FoundNo Family History Records Found Additional Source Comments Reason for Visit (unrecogniz ed section and content) Status Reason Specialty Diagnoses / Procedures Referre d By Contact Referred To Contact Closed Cardiology Diagnoses Abnormal EKG Atrial fibrillation, unspecified type (HCC) History of cardiac murmur Procedures ECHO Complete 2D W Doppler W Color Bladimir Salguero MD [address] [place] [address] Status Reason Specialty Diagnoses / Procedures Re ferred By Contact Referred To Contact Closed Stress Lab Diagnoses Unspecified atrial fibrillation Procedures HC CARDIOVERSION Bladimir Salguero MD [address] [place] [address] [facility] Stress [facility] [address] [place] [address] INFORMATION SOURCE (unrecogn ized section and content) DATE CREATED AUTHOR 09/06/2020 [facility] DATE CREATED AUTHOR AUTHOR'S ORGANIZ ATION 10/14/2020 Karen epstein DATE CREATED AUTHOR AUTHOR'S ORGANIZ ATION 01/11/2022 [facility] DATE CREATED AUTHOR AUTHOR'S ORGANIZ ATION 05/29/2023 [facility]mi Specialists [facility] FOR RECORDS PERTAINING TO PATIENTS WHO ARE OR HAVE BEEN ENROLLED IN A CHEMICAL DEPENDENCY/SUBSTANCEABUSE PROGRAM, SOME INFORMATION MAY BE OMITTED. This clinical summary was aggregated from multiple sources. Caution should be exercised in using it in the provision of clinical care. This summary normalizes information from multiple sources, and as a consequence, information in this document may materially change the coding, format and clinical context of patient data. In addition, data may be omitted in some cases. CLINICAL DECISIONS SHOULD BE BASED ON THE PRIMARY CLINICAL RECORDS. [facility] [employer] provides no warranty or guarantee of the accuracy or completeness of information in this document.
--- NOTE | 2023-09-30 08:29 | XR_ITS ---
The [address] [address] Patient Name: CARMEN ROSAS MRN: [id number] date: 1945 Sex: F Assigned Patient Location: LAB Current Patient Location: LAB Accession/Order Number: [id number] Exam Date: 09/30/2023 08:31 Report Date: 09/30/2023 08:51 At the request of: BLADIMIR JI Procedure: XR chest 2V PROCEDURE: XR chest 2V DATE: 09/30/2023 7:31 AM CDT COMPARISONS: 10/01/2022 CLINICAL INDICATION: 78 years Female New Onset Atrial Fibrillation, Mitral Valve Insufficiency FINDINGS: Heart is upper normal in size slightly more prominent than previous exam done one year earlier. The lungs are clear. There is no evidence of pleural effusion or pneumothorax. XR/XR chest 2V IMPRESSION: The heart appears slightly more prominent than previous exam. Chest is otherwise stable. Electronically authenticated by: AMBER CROWDER Date: 09/30/2023 08:51
[2023-09-30 09:21] LABS: Basophils Percent Auto 0.3 % (0.2-2.0); Eosinophils Absolute Auto 0.2 10^3/uL (0.0-0.7); Hematocrit 36.5 % (36.0-48.0); Hemoglobin 11.9 g/dL (12.0-16.0); Immature Granulocytes Abs Auto 0.02 10^3/uL (0.00-0.03); Immature Granulocytes Pct Auto 0.3 % (0.0-0.5); Lymphocytes Absolute Auto 2.1 10^3/uL (1.2-3.8); Lymphocytes Percent Auto 29.3 % (20.5-60.0); Mean Corpuscular HGB Conc 32.6 g/dL (29.9-35.2); Mean Corpuscular Hemoglobin 30.1 pg (26.7-34.0); Mean Corpuscular Volume 92.4 fL (81.0-99.0); Mean Platelet Volume 10.6 fL (9.5-13.5); Monocytes Absolute Auto 0.7 10^3/uL (0.3-0.8); Monocytes Percent Auto 9.8 % (1.7-12.0); Neutrophils Absolute Auto 4.2 10^3/uL (1.4-6.5); Neutrophils Percent Auto 57.3 % (43.0-75.0); Platelet Count 278 10^3/uL (150-450); Red Blood Count 3.95 10^6/uL (4.20-5.40); Red Cell Distribution Width 13.4 % (11.0-15.0); White Blood Count 7.3 10^3/uL (4.0-11.0)
[2023-09-30 09:47] LABS: Alanine Aminotransferase 32 U/L (14-59); Albumin Globulin Ratio 1.1; Albumin Level 3.9 g/dL (3.4-5.0); Alkaline Phosphatase 81 U/L (46-116); Anion Gap 16.6; Aspartate Amino Transferase 25 U/L (15-37); BUN Creatinine Ratio 18.1; Bilirubin Total 0.6 mg/dL (0.2-1.0); Calcium 9.4 mg/dL (8.5-10.1); Carbon Dioxide 25.7 mmol/L (21.0-32.0); Chloride 103 mmol/L (98-107); Chol HDL Ratio 2.6; Cholesterol 133 mg/dL (<=200); Estimated GFR (African America 31 (>=60); Estimated GFR (Non-African Ame 25 (>=60); Globulin 3.6 g/dL; Glucose 105 mg/dL (74-106); HDL Cholesterol 52 mg/dL (40-60); Magnesium 1.9 mg/dL (1.8-2.4); Potassium 4.3 mmol/L (3.5-5.1); Sodium 141 mmol/L (136-145); Thyroid Stimulating Hormone 2.309 uIU/mL (0.358-3.740); Total Protein 7.5 g/dL (6.4-8.2); Triglycerides 65 mg/dL (<=150)
== END 2023-09-30 08:05 | disposition home or self-care (01) ==
PROVIDERS: PCP Family Medicine
DX: I48.91 Unspecified atrial fibrillation (principal); E78.5 Hyperlipidemia, unspecified; I34.0 Nonrheumatic mitral (valve) insufficiency; E55.9 Vitamin D deficiency, unspecified; I07.1 Rheumatic tricuspid insufficiency
CPT/HCPCS: 36415; 71046; 80053; 80061; 82306; 83735; 84443; 85025; 93005

== ENCOUNTER 2024-09-17 08:04 | Outpatient (OUT) | payer MEDICARE, OTHER, SELFPAY ==
--- OUTSIDE RECORDS SUMMARY | 2024-09-17 08:06 | XMS_ITS | Encounter Summary ---
Author Organization [facility] Address [address] [place] [address] Care Team Providers Care Health Counselor Name Role Phone Dusty Sandoval MD Primary Care Provider Mini Chávez DO Unavailable [phone] Raisa Monroe OD Unavailable Dusty Sandoval MD Unavailable [phone] Preston Salguero MD Unavailable [phone] Reason for Visit * Reason Comments Med Refill Encounter Details Date Type Department Care Team (Late st Contact Info) Description 09/08/2024 Refill [facility] [address] [place] [address] Dusty Sandoval MD [address] [facility] [address] [place] [address] (Fax) Mixed dyslipidemia ; Longstanding persistent atrial fibrillation (HCC); Primary hypertension Social History Tobacco Use Types Packs/Day Years Used Date Smoking Tobacco: Never Smokeless Tobacco: Never Alcohol Use Standard Drinks/Week Comments Never 0 (1 standard drink = 0.6 oz pure alcohol) Caffeine intake: 2-3 cups per day B1300 Health Literacy Answer Date Recor ded How often do you need to hav e someone help you when you read instructions, pamphlets, or other written material from your doctor or pharmacy? Never 04/14/2024 Humiliation, Afraid, Rape, and Kick questionnair e Answer Date Recorded Within the last year, have y ou been afraid of your partner or ex-partner? Patient declined 09/12/2022 Within the last year, have y ou been humiliated or emotionally abused in other ways by your partner or ex-partner? No 09/12/2022 Within the last year, have y ou been kicked, hit, slapped, or otherwise physically hurt by your partner or ex-partner? No 09/12/2022 Within the last year, have y ou been raped or forced to have any kind of sexual activity by your partner or ex-partner? No 09/12/2022 Social Connection and Isolation Panel [NHANES] A nswer Date Recorded In a typical week, how many times do you talk on the phone with family, friends, or neighbors? Patient declined 04/14/2024 How often do you get togethe r with friends or relatives? Patient declined 04/14/2024 How often do you attend pentecostal or baptist serv ices? Patient declined 04/14/2024 Do you belong to any clubs o r organizations such as pentecostal groups, unions, fraternal or athletic groups, or school groups? No 04/14/2024 How often do you attend meet ings of the clubs or organizations you belong to? Never 04/14/2024 Are you , , di vorced, , never , or living with a partner? 04/14/2024 AUDIT-C Answer Date Recorded Q1: How often do you have a drink containing alcohol? Never 04/14/2024 Q2: How many drinks containi ng alcohol do you have on a typical day when you are drinking? Patient does not drink Q3: How often do you have si x or more drinks on one occasion? Never 04/14/2024 Overall Financial Resource Strain (CARDIA) Answe r Date Recorded How hard is it for you to pa y for the very basics like food, housing, medical care, and heating? Not hard at all 04/14/2024 PHQ-2 Answer Date Recorded Patient Health Questionnaire-2 Score 0 04/26/2024 [facility] of Occupat ional Health - Occupational Stress Questionnaire Answer Date Recorded Do you feel stress - tense, restless, nervous, or anxious, or unable to sleep at night because your mind is troubled all the time - these days? Not at all 04/14/2024 Exercise Vital Sign Answer Date Recorde d On average, how many days pe r week do you engage in moderate to strenuous exercise (like a brisk walk)? 3 days 04/14/2024 On average, how many minutes do you engage in exercise at this level? 30 min 04/14/2024 Hunger Vital Sign Answer Date Recorded Within the past 12 months, y ou worried that your food would run out before you got the money to buy more. Never true Within the past 12 months, t he food you bought just didn't last and you didn't have money to get more. Patient declined PRAPARE - Transportation Answer Date Re corded In the past 12 months, has l ack of transportation kept you from medical appointments or from getting medications? Patient declined 04/14/2024 In the past 12 months, has l ack of transportation kept you from meetings, work, or from getting things needed for daily living? Patient declined 04/14/2024 Housing Stability Vital Sign Answer Danis e Recorded In the last 12 months, was t here a time when you were not able to pay the mortgage or rent on time? No 09/12/2022 Number of Places Lived in the Last Year Not on f ile 09/12/2022 In the last 12 months, was t here a time when you did not have a steady place to sleep or slept in a halfway (including now)? No 09/12/2022 Housing Stability Vital Sign Answer Danis e Recorded In the last 12 months, was t here a time when you were not able to pay the mortgage or rent on time? Patient declined 04/14/19 25 Number of Times Moved in the Last Year Not on fi le 04/14/2024 At any time in the past 12 m [facility], were you homeless or living in a halfway (including now)? Patient declined 04/14/2024 Education Answer Date Recorded What is the highest level of school you have completed or the highest degree you have received? High school graduate 09/19/2022 Comments No Sex and Gender Information Value Date Recorded Sex Assigned at Not on file Legal Sex Female 6:43 PM EDT Gender Identity Not on file Sexual Orientation Not on file documented as of this encounter Plan of Treatment Upcoming Encounters Date Type Department Care Team (Late st Contact Info) Description 10/05/2024 10:00 AM EDT Office Visit [facility] [address] [place] [address] Dusty Sandoval MD [address] [place] [address] documented as of this encounter Visit Diagnoses Diagnosis Mixed dyslipidemia Longstanding persistent atrial fibrillation (HCC) Primary hypertension Unspecified essential hypertension documented in this encounter Additional Health Concerns Assessment Noted Time PHQ-9 Depression Total Score: 0 09/20/19 10:00 AM EDT documented as of this encounter Care Teams Health Counselor Relationship Specialty Start Date End Date Dusty Sandoval MD PCP - General Family Medicine 08/22/22 Dusty Sandoval MD [address] [place] [address] PCP - ACO Reach 04/25/23 Mini Chávez DO [address] [place] [address] Referring Physician Neurology 05/14/23 Raisa Monroe OD [address] [place] [address] Referring Physician Optometry 05/28/23 Preston Salguero MD [address] [place] [address] Referring Physician Cardiology 05/03/24 documented as of this encounter
--- OUTSIDE RECORDS SUMMARY | 2024-09-17 08:06 | XMS_ITS | Encounter Summary ---
Author Organization [facility] Address [address] [place] [address] Care Team Providers Care Straight Line Press Setter Name Role Phone Dusty Sandoval MD Primary Care Provider Mini Chávez DO Unavailable [phone] Raisa Monroe OD Unavailable Dusty Sandoval MD Unavailable [phone] Preston Salguero MD Unavailable [phone] Encounter Details Date Type Department Care Team (Late st Contact Info) Description 10/07/2022 Abstract [facility] [address] [place] [address] Preston Salguero MD [address] [place] [address] Social History Tobacco Use Types Packs/Day Years Used Date Smoking Tobacco: Never Smokeless Tobacco: Never Alcohol Use Standard Drinks/Week Comments Not Currently 0 (1 standard drink = 0.6 oz pure alcohol) Caffeine intake: 2-3 cups per day Humiliation, Afraid, Rape, and Kick questionnair e [...] the phone with family, friends, or neighbors? Three times a week 09/12/2022 How often do you get togethe r with friends or relatives? Once a week 09/12/2022 How often do you attend chur or holiness services? Patient declined 09/12/2022 Do you belong to any clubs o r organizations such as mu-ism groups, unions, fraternal or athletic groups, or school groups? No 09/12/2022 How often do you attend meet ings of the clubs or organizations you belong to? Patient declined 09/12/2022 Are you , , di vorced, , never , or living with a partner? 09/12/2022 AUDIT-C Answer Date Recorded Q1: How often do you have a drink containing alc ohol? Monthly or less 09/19/2022 Q2: How many drinks containi ng alcohol do you have on a typical day when you are drinking? 1 or 2 09/19/2022 Q3: How often do you have si x or more drinks on one occasion? Less than monthly 09/19/2022 Overall Financial Resource Strain (CARDIA) Answe r Date Recorded How hard is it for you to pa y for the very basics like food, housing, medical care, and heating? Patient declined 09/12/2022 PHQ-2 Answer Date Recorded Patient Health Questionnaire-2 Score 0 09/19/2022 [facility] of Occupat ional Health - Occupational Stress Questionnaire Answer Date Recorded Do you feel stress - tense, restless, nervous, or anxious, or unable to sleep at night because your mind is troubled all the time - these days? Not at all 09/12/2022 Exercise Vital Sign Answer Date Recorde d On average, how many days pe r week do you engage in moderate to strenuous exercise (like a brisk walk)? 3 days 09/12/2022 On average, how many minutes do you engage in exercise at this level? 20 min 09/12/2022 Hunger Vital Sign Answer Date Recorded Within the past 12 months, y ou worried that your food would run out before you got the money to buy more. Patient declined Within the past 12 months, t he food you bought just didn't last and you didn't have money to get more. Patient declined PRAPARE - Transportation Answer Date Re corded In the past 12 months, has l ack of transportation kept you from medical appointments or from getting medications? No 08/25 In the past 12 months, has l ack of transportation kept you from meetings, work, or from getting things needed for daily living? No 09/12/2022 Housing Stability Vital Sign Answer [...] place to sleep or slept in a correction (including now)? No 09/12/2022 Education Answer Date Recorded What is the highest level of school you have completed or the highest degree you have received? High school graduate 09/19/2022 Comments No Sex and Gender Information Value Date Recorded Sex Assigned at Not on file Legal Sex Female 6:43 PM EDT Gender Identity Not on file Sexual Orientation Not on file COVID-19 Exposure Response Date Recorded In the last 10 days, have yo u been in contact with someone who was confirmed or suspected to have Coronavirus/COVID-19? No / Unsure 09/12/2022 8:48 AM EDT documented as of this encounter Plan of Treatment Upcoming Encounters Date Type Department Care Team (Late st Contact Info) Description 10/05/2024 10:00 AM EDT Office Visit [facility] 100 [address] [facility] [address] [place] [address] Dusty Sandoval MD 112 [facility] [address] [place] [address] documented as of this encounter Visit Diagnoses Not on filedocumented in this encounter Additional Health Concerns Assessment Noted Time PHQ-9 Depression Total Score: 0 09/20/19 10:00 AM EDT documented as of this encounter Care Teams Straight Line Press Setter Relationship Specialty Start Date End Date Dusty Sandoval MD (Fax) PCP - General Family Medicine 08/22/22 Dusty Sandoval MD [address] [facility] [address] [place] [address] PCP - ACO Reach 04/25/23 Mini Chávez DO [address] [place] [address] Referring Physician Neurology 05/14/23 [place] [address] [place] [address] Referring Physician Optometry 05/28/23 Preston Salguero MD [address] [place] [address] Referring Physician Cardiology 05/03/24 documented as of this encounter
--- OUTSIDE RECORDS SUMMARY | 2024-09-17 08:06 | XMS_ITS | Encounter Summary ---
Author Organization [facility] Address [address] [place] [address] Care Team Providers Care Awning Finisher Name Role Phone Dusty Sandoval MD Primary Care Provider [phone] Mini Chávez DO Unavailable [phone] Raisa Monroe OD Unavailable Dusty Sandoval MD Unavailable [phone] Preston Salguero MD Unavailable [phone] Encounter Details Date Type Department Care Team (Late st Contact Info) Description 09/30/2023 Clinisync Result Encounter [facility] External Department Unsolicited Provider, Generic External Data Social History Tobacco Use Types Packs/Day Years [...] How often do you attend chur or voodoo services? Patient declined 09/12/2022 Do you belong to any clubs o r organizations such as rastafarian groups, unions, fraternal or athletic groups, or [...] Date Recorded Patient Health Questionnaire-2 Score 0 04/28/2023 [facility] of Occupat ional Health - Occupational Stress [...] place to sleep or slept in a fpc (including now)? No 09/12/2022 Education Answer Date [...] 10/05/2024 10:00 AM EDT Office Visit [facility] [address] [facility] [address] [place] [address] Dusty Sandoval MD 112 [facility] [address] [place] [address] documented as of this encounter Procedures Procedure Name Priority Date/Time Associated Diagnosis Comments ECG 12-LEAD 09/30/2023 8:24 AM EDT documented in this encounter Results * ECG 12-LEAD (09/30/2023 8:24 AM EDT) Anatomical Region Laterality Modality Other 09/30/2023 8:24 AM EDT Narrative 09/30/2023 10:25 PM EDT The [place] [id number] Electrocardiograph Report Signed Patient: ASHANTI ROSAS MR#: [id number] : 1945 Acct:[id number] Age/Sex: 78 / F ADM Date: 09/30/23 Loc: LAB Attending Dr: BLADIMIR SALGUERO Ordering Physician: BLADIMIR SALGUERO Date of Service: 09/30/23 Procedure(s): ECG 12 lead Accession Number(s): [id number] cc: The [facility] Test Date: 2023-09-30 Pat Name: ASHANTI ROSAS Department: Room: - Gender: Female Senior Grants Officer: : 1945 Requested By: BLADIMIR SALGUERO Order Number: [id number] Reading MD: SUHAIL TRAVIS Measurements Intervals [place] Rate: 67 P: [place]: QRS: -34 QRSD: 78 T: 28 QT: 394 QTc: 418 Interpretive Statements ATRIAL FIBRILLATION MARKED LEFT AXIS DEVIATION [QRS AXIS < -30] LOW QRS VOLTAGE IN PRECORDIAL LEADS [QRS DEFLECTION < 1.0 mV IN CHEST LEADS] Compared to ECG 10/01/2022 08:01:06 Left-axis deviation now present Myocardial infarct finding no longer present Electronically Signed On 09-30-2023 22:25:15 EDT by SUHAIL TRAVIS Dictated By: Suhail Travis D.O. Signed By: 09/30/23222409/30/232224 DD/ 3 TD/TT: Perianesthesia Manager: Procedure Note Radiology, Radiologist, MD - 09/30/[address] [address] Electrocardiograph Report Signed Patient: ASHANTI ROSAS AMR#: [id number] : 7Acct:[id number] Age/Sex: 78 / FADM Date: 09/30/23 Loc: LAB Attending Dr: BLADIMIR SALGUERO Ordering Physician: BLADIMIR SALGUERO Date of Service: 09/30/23 Procedure(s): ECG 12 lead Accession Number(s): [id number] cc: The [facility] Test Date: 2023-09-30 Pat Name: ASHANTI ROSAS Department: Room: - Gender: Female Senior Grants Officer: : 1945 Requested By: BLADIMIR SALGUERO Order Number: [id number] Reading MD: SUHAIL TRAVIS Measurements Intervals [place] Rate: 67 P: [place]: QRS: -34 QRSD: 78 T: 28 QT: 394 QTc: 418 Interpretive Statements ATRIAL FIBRILLATION MARKED LEFT AXIS DEVIATION [QRS AXIS < -30] LOW QRS VOLTAGE IN PRECORDIAL LEADS [QRS DEFLECTION < 1.0 mV IN CHESTLEADS] Compared to ECG 10/01/2022 08:01:06 Left-axis deviation now present Myocardial infarct finding no longer present Electronically Signed On 09-30-2023 22:25:15 EDT by SUHAIL TRAVIS Dictated By: Suhail Travis D.O. Signed By:09/30/23222409/30/232224 DD/ 3 TD/TT: Perianesthesia Manager: Generic External Data Provider [facility] Final Result documented in this encounter Visit Diagnoses Not on filedocumented in this encounter Additional Health Concerns Assessment Noted Time PHQ-9 Depression Total Score: 0 09/20/19 23 10:00 AM EDT documented as of this encounter Care Teams Awning Finisher Relationship Specialty Start Date End Date Dusty Sandoval MD PCP - General Family Medicine 08/22/22 Dusty Sandoval MD [address] [facility] [address] [place] [address] PCP - ACO Reach 04/25/23 Mini Chávez DO [address] [place] [address] Referring Physician Neurology 05/14/23 Raisa Monroe OD [address] [place] [address] Referring Physician Optometry 05/28/23 Preston Salguero MD [address] [place] [address] Referring Physician Cardiology 05/03/24 documented as of this encounter
--- OUTSIDE RECORDS SUMMARY | 2024-09-17 08:06 | XMS_ITS | Encounter Summary ---
Author Organization [facility] Address [address] [place] [address] Care Team Providers Care Financial Planner Name Role Phone Dusty Sandoval MD Primary Care Provider Mini Chávez DO Unavailable [phone] Raisa Monroe OD Unavailable Dusty Sandoval MD Unavailable [phone] Preston Salguero MD Unavailable [phone] Encounter Details Date Type Department Care Team (Late st Contact Info) Description 11/11/2022 Orders Only [facility] [address] [place] [address] Dusty Sandoval MD [address] [facility] [address] [place] [address] Social History Tobacco Use Types Packs/Day Years [...] 09/12/2022 How often do you attend chur ch or advent services? Patient declined 09/12/2022 Do you belong to any clubs o r organizations such as spiritism groups, unions, fraternal or athletic groups, or [...] Recorded Patient Health Questionnaire-2 Score 0 09/19/2022 [facility] of Occupat ional Health - Occupational Stress [...] place to sleep or slept in a snf (including now)? No 09/12/2022 Education Answer Date [...] FM [address] [place] [address] Dusty Sandoval MD 112 [facility] [address] [place] [address] (Fax) documented as of this encounter Procedures Procedure Name Priority Date/Time Associated Diagnosis Comments COMPREHENSIVE METABOLIC PANEL (REFL) Routine 10/01/2022 2:37 PM EDT CBC Routine 10/01/2022 2:37 PM EDT LIPID PANEL Routine 10/01/2022 2:37 PM EDT documented in this encounter Results * CBC (10/01/2022 2:37 PM EDT) Blood Venous blood specimen / Unknown Dusty Sandoval MD LAB BLOOD ORDERABLES Final R esult * COMPREHENSIVE METABOLIC PANEL (REFL) (10/01/2022 2:37 PM EDT) Dusty Sandoval MD LAB BLOOD ORDERABLES Final R esult * Lipid panel (10/01/2022 2:37 PM EDT) Blood Venous blood specimen / Unknown Dusty Sandoval MD LAB BLOOD ORDERABLES Final R esult documented in this encounter Visit Diagnoses Not on filedocumented in this encounter Additional Health Concerns Assessment Noted Time PHQ-9 Depression Total Score: 0 09/20/19 23 10:00 AM EDT documented as of this encounter Care Teams Financial Planner Relationship Specialty Start Date End Date Dusty Sandoval MD PCP - General Family Medicine 08/22/22 Dusty Sandoval MD [address] [place] [address] [address] [place] [address] PCP - ACO Reach 04/25/23 Mini Chávez DO [address] [place] [address] Referring Physician Neurology 05/14/23 Raisa Monroe OD [address] [place] [address] Referring Physician Optometry 05/28/23 Preston Salguero MD [address] [place] [address] Referring Physician Cardiology 05/03/24 documented as of this encounter
--- OUTSIDE RECORDS SUMMARY | 2024-09-17 08:06 | XMS_ITS | Clinical Summary ---
Author Organization [facility] Address [address] [facility] [facility], [address] [place] [address] Care Team Providers Care Union Contract Representative Name Role Phone Dusty Sandoval MD Primary Care Provider [phone] Allergies No known active allergies Medications dilTIAZem (DILACOR XR) 180 MG extended release capsule Take 2 capsules by mouth daily Active Cholecalciferol (VITAMIN D3) 50 MCG (1999) CAPS Take by mouth Active rivaroxaban (XARELTO) 20 MG TABS tablet Take 1 tablet by mouth Active metoprolol tartrate (LOPRESSOR) 25 MG tablet Take 1 tablet by mouth 2 times daily Active hydrALAZINE (APRESOLINE) 50 MG tablet Take 1 tablet by mouth 2 times daily 180 tablet 3 07/20/2020 Active rosuvastatin (CRESTOR) 5 MG tablet TAKE 1 TABLET EVERY DAY 90 tablet 3 02/08/2021 Active omeprazole (PRILOSEC) 20 MG delayed release capsule Take 1 capsule by mouth daily Active triamterene-hyd roCHLOROthiazid e (MAXZIDE-25) 37.5-25 MG per tablet TAKE 1 TABLET BY MOUTH EVERY DAY 90 tablet 3 04/10/2023 Active Active Problems No known active problems Social History Tobacco Use Types Packs/Day Years Used Date Smoking Tobacco: Never Smokeless Tobacco: Never Tobacco Cessation:Counseling Given: Not Answered Comments Unknown Sex and Gender Information Value Date Recorded Sex Assigned at Not on file Legal Sex Female 3:30 PM EDT Gender Identity Not on file Sexual Orientation Not on file Last Filed Vital Signs Vital Sign Reading Time Taken Comments Blood Pressure 120/60 10/06/2023 9:47 AM EDT Pulse 70 10/06/2023 9:45 AM EDT Temperature - - Respiratory Rate 13 09/27/2019 11:19 AM EDT Oxygen Saturation 98% 10/06/2023 9:45 AM EDT Inhaled Oxygen Concentration - - Weight 88.5 kg (195 lb) 10/06/2023 9:45 AM EDT Height - - Body Mass Index - - Plan of Treatment Upcoming Encounters Date Type Department Care Team (Late st Contact Info) Description 10/04/2024 9:30 AM EDT Office Visit [facility] Medical Records Supervisor [address] [place] [id number] Lanny Aguilera APRN - CAR BODY INSPECTOR [address] [place] [address] 1 yr f/u lab/ekg/cxr Health Maintenance Due Date Last Done Comments Depression Screen 1957 Hepatitis C screen 1964 DTaP/Tdap/Td vaccine (1 - Tdap) 1965 Shingles vaccine (1 of 2) 1996 Lipids 10/01/2022 10/01/2021, 08/25, 04/14/2020 Annual Wellness Visit (Medicare) 01/20/2023 COVID-19 Vaccine ( season) 2023 11/03/2021, 06/21/2021, 02/01/2021, Additional history exists Flu vaccine (#1) 09/24/2024 12/10/2022, , 11/13/2020, Additional history exists Breast cancer screen Discontinued 11/02/2019, 10/12/2018, 10/12/2018, Additional history exists DEXA (modify frequency per FRAX score) Completed 09/21/2020, 08/17/2018 Pneumococcal 50+ years Vaccine Completed 12/10/2022, 07/30/2021, 11/19/2018, Additional history exists Respiratory Syncytial Virus (RSV) or age 60 yrs+ Completed 12/11/2022 Hepatitis A vaccine Aged Out No longe r eligible based on patient's age to complete this topic Hepatitis B vaccine Aged Out No longe r eligible based on patient's age to complete this topic Hib vaccine Aged Out No longer eligi ble based on patient's age to complete this topic Meningococcal (ACWY) vaccine Aged Out No longer eligible based on patient's age to complete this topic Meningococcal B vaccine Aged Out No l onger eligible based on patient's age to complete this topic Polio vaccine Aged Out No longer elig ible based on patient's age to complete this topic Procedures Procedure Name Priority Date/Time Associated Diagnosis Comments LIPID PANEL Routine 10/01/2021 Atrial fibrillation, new onset (HCC) Vitamin D deficiency disease Tricuspid valve insufficiency, unspecified etiology Mitral valve insufficiency, unspecified etiology Encounter for lipid screening for cardiovascular disease from Last 3 Months or Most Recently Relevant to Health Maintenance Results * Lipid Panel (10/01/2021) Cholesterol, Total 158 mg/dL HDL 51 35 - 70 mg/dL LDL Calculated 83.2 0 - 160 mg/dL Triglycerides 119 mg/dL Chol/HDL Ratio 3.1 VLDL 23.8 mg/dL Cholesterol non HDL BLOOD SPECIMEN / Unknown 10/01/2021 Kwaku Salguero MD CHEMISTRY ORDERABLES Final Res ult from Last 3 Months or Most Recently Relevant to Health Maintenance Insurance [employer] Care Teams Union Contract Representative Relationship Specialty Start Date End Date Dusty Sandoval MD PCP - General 08/30/19
--- OUTSIDE RECORDS SUMMARY | 2024-09-17 08:06 | XMS_ITS | Clinical Summary ---
Author Organization [facility] Address [address] [place] [address] Care Team Providers Care Corporate Tutor Name Role Phone Unavailable Primary Care Provider Unavailabl e Social History Tobacco Use Types Packs/Day Years Used Date Smoking Tobacco: Never Assessed Comments Unknown Sex and Gender Information Value Date Recorded Sex Assigned at Not on file Legal Sex Female 12:16 AM EDT Gender Identity Not on file Sexual Orientation Not on file Last Filed Vital Signs Vital Sign Reading Time Taken Comments Blood Pressure - - Pulse - - Temperature - - Respiratory Rate - - Oxygen Saturation - - Inhaled Oxygen Concentration - - Weight 81.6 kg (180 lb) 06/26/2020 1:25 PM EDT Height 167.6 cm (5' 6 ) 08/30/2020 10:07 AM EDT Body Mass Index 29.05 06/26/2020 1:25 PM EDT Plan of Treatment Not on file
--- OUTSIDE RECORDS SUMMARY | 2024-09-17 08:06 | XMS_ITS | Encounter Summary ---
Author Organization [facility] Address [address] [place] [address] Care Team Providers Care Rubber Goods Supervisor Name Role Phone Dusty Sandoval MD Primary Care Provider Mini Chávez DO Unavailable [phone] Raisa Monroe OD Unavailable Dusty Sandoval MD Unavailable [phone] Preston Salguero MD Unavailable [phone] Encounter Details Date Type Department Care Team (Late st Contact Info) Description 10/17/2022 Orders Only [facility] [address] [place] [address] Provider, MD Gaurav [address] [place] [id number] Social History Tobacco Use Types Packs/Day Years [...] How often do you attend chur or mosque services? Patient declined 09/12/2022 Do you belong to any clubs o r organizations such as roman catholic groups, unions, fraternal or athletic groups, or [...] Recorded Patient Health Questionnaire-2 Score 0 09/19/2022 [facility] - Occupational Stress [...] place to sleep or slept in a longterm (including now)? No 09/12/2022 Education Answer Date [...] Office Visit [facility] [address] [facility] [address] [place] [address] Dusty Sandoval MD [address] [facility] [address] [place] [address] documented as of this encounter Procedures Procedure Name Priority Date/Time Associated Diagnosis Comments ELECTROCARDIOGRAM REPORT Routine 023 12:28 PM EDT documented in this encounter Results * Electrocardiogram Report (10/01/2022 12:28 PM EDT) Dusty Sandoval MD IN CLINIC/BEDSIDE ORDERABLES Final Result documented in this encounter Visit Diagnoses Not on filedocumented in this encounter Additional Health Concerns Assessment Noted Time PHQ-9 Depression Total Score: 0 09/20/19 10:00 AM EDT documented as of this encounter Care Teams Rubber Goods Supervisor Relationship Specialty Start Date End Date Dusty Sandoval MD PCP - General Family Medicine 08/22/22 Dusty Sandoval MD [address] [address] PCP - ACO Reach 04/25/23 Mini Chávez DO [address] [place], [place] [id number] Referring Physician Neurology 05/14/23 Raisa Monroe OD [address] [place] [address] Referring Physician Optometry 05/28/23 Preston Salguero MD [address] [place], [place] [id number] Referring Physician Cardiology 05/03/24 documented as of this encounter
--- OUTSIDE RECORDS SUMMARY | 2024-09-17 08:06 | XMS_ITS | Clinical Summary ---
Author Organization [facility] Address [address] [place] [address] Care Team Providers Care Applications Intern Name Role Phone Dusty Sandoval MD Primary Care Provider Mini Chávez DO Unavailable [phone] Raisa Monroe OD Unavailable Dusty Sandoval MD Unavailable [phone] Preston Salguero MD Unavailable [phone] Allergies Active Allergy Reactions Criticality Noted Date Comments Lisinopril 09/17/2022 Other Reaction(s): renal failure Medications calcium citrate 1040 MG tablet 2 (two) times a day Active triamterene-hydro chlorothiazide (Maxzide-25) 37.5-25 MG tabletIndications :Primary hypertension Take 1 tablet by mouth Daily 90 tablet 1 5 10/13/19 25 Active dilTIAZem CD (Cardizem CD) 180 MG 24 hr capsuleIndication s:Primary hypertension Take 2 capsules (360 mg) by mouth Daily 180 capsule 1 5 10/13/19 25 Active metoprolol tartrate (Lopressor) 25 MG tabletIndications :Primary hypertension,Long standing persistent atrial fibrillation (HCC) Take 1 tablet (25 mg) by mouth in the morning and 1 tablet (25 mg) before bedtime. 180 tablet 1 5 10/13/19 Active hydrALAZINE (Apresoline) 50 MG tabletIndications :Primary hypertension Take 1 tablet (50 mg) by mouth in the morning and 1 tablet (50 mg) before bedtime. 180 tablet 1 5 10/13/19 Active rosuvastatin (Crestor) 5 MG tabletIndications :Mixed dyslipidemia Take 1 tablet (5 mg) by mouth in the evening 90 tablet 1 5 10/13/19 Active rivaroxaban (Xarelto) 20 MG tabletIndications :Longstanding persistent atrial fibrillation (HCC) Take 1 tablet (20 mg) by mouth in the evening. 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 09/17/2022 Gastroesophageal reflux disease without esophagi tis 09/17/2022 Generalized anxiety disorder 09/17/2022 Granulomatous disease 09/17/2022 History of hysterectomy 09/17/2022 Hypertensive nephropathy 09/17/2022 Mixed dyslipidemia 09/17/2022 Moderate mitral regurgitation 09/17/2022 Moderate to severe pulmonary hypertension 2022 Non-seasonal allergic rhinitis 09/17/2022 JOHN (obstructive sleep apnea) 09/17/2022 Osteopenia determined by x-ray 09/17/2022 Osteoporosis 09/17/2022 Presence of left artificial knee joint Primary hypertension 09/17/2022 Right ventricular hypertrophy 09/17/2022 Simple chronic bronchitis 09/17/2022 Surgical menopause 09/17/2022 Vitamin D deficiency 09/17/2022 Polypharmacy 10/16/2020 Postinflammatory pulmonary fibrosis 08/25/2019 [facility] current use of anticoagulant therapy 0 08/18/2019 Resolved Problems Problem Noted Date Diagnosed Date Resolved Date Overweight 09/17/2022 04/12/2024 Septal myocardial infarction 09/17/2022 05/03/2024 Stage 3b chronic kidney disease 09/17/2022 10/20/2023 Mixed hyperlipidemia 04/05/2021 023 Encounters Date Type Department Care Team Description 09/08/2024 Refill [facility] [address] [place] [address] Dusty Sandoval MD Mixed dyslipidemia ; Longstanding persistent atrial fibrillation (HCC); Primary hypertension from Last 3 Months Immunizations Immunization Administration Dates Next Due Influenza, High Dose Seasona l, Preservative Free 11/19/2018,11/20/2017,11/29/2016 Influenza, High-dose Seasona l, Quadrivalent, Preservative Free 11/21/2021,11/13/2020,11/15/2019 Influenza, Seasonal, Quadriv alent, Adjuvanted 12/10/2022 Influenza, injectable, quadr ivalent, preservative free 11/19/2018,11/24/2017,11/23/2017,12/23 Influenza, seasonal, intrade rmal, preservative free 11/25/2015 Moderna SARS-CoV-2 50mcg/0.5mL Booster 2 Pneumococcal Conjugate PCV 20 12/10/2022, 022 Pneumococcal Polysaccharide PPSV23 11/19/2018, RSV, recombinant, protein chapa bunit RSVpreF, adjuvant reconstitu, 120mcg/0.5mL, PF (Arexvy) 12/11/2022 SARS-COV-2 (COVID-19) vaccin e, mRNA, spike protein, LNP, bivalent, preservative free, 30 mcg/0.3 mL dose, ricky-sucrose formulation 11/03/2021 Family History Medical History Relation Name Comments Alcohol abuse Father Fathe Allergies Father Fathe Coronary artery disease Father Fathe Depression Father Fathe Heart disease Father Fathe Hypertension Father Fathe Mental illness Father Fathe Diabetes Mother Sarah Hypertension Mother Sarah Irritable bowel syndrome Mother Sarah Solid Tumor Mother Sarah non malignant b rain tumor CVA Other 1 Diabetes Other 1 DEO disease Other 1 Hypertension Other 1 Stroke Other 1 Diabetes Son 2 Daughter and son Relation Name Status Comments Daughter Alive 1 daughter Father Fathe Mother Sarah Other 1 Fam hx Other 2 spouse Son 1 Alive 1 son Son 2 Daughter and son Social History Tobacco Use Types Packs/Day Years Used Date Smoking Tobacco: Never Smokeless Tobacco: Never Tobacco Cessation:Counseling Given: Yes Alcohol Use Standard Drinks/Week Comments Never 0 [...] declined 04/14/2024 How often do you attend methodist or hoahaoism serv ices? Patient declined 04/14/2024 Do you belong to any clubs o r organizations such as methodist groups, unions, fraternal or athletic groups, or [...] Recorded Patient Health Questionnaire-2 Score 0 04/26/2024 [facility] - Occupational Stress Questionnaire Answer Date Recorded [...] place to sleep or slept in a fdc (including now)? No 09/12/2022 Housing Stability Vital Sign Answer Danis e Recorded In the last 12 months, was t here a time when you were not able to pay the mortgage or rent on time? Patient declined 04/14/19 Number of Times Moved in the Last Year Not on fi le 04/14/2024 At any time in the past 12 m [facility], were you homeless or living in a fdc (including now)? Patient declined 04/14/2024 Education Answer [...] Sign Reading Time Taken Comments Blood Pressure 120/76 05/03/2024 9:37 AM EDT Pulse 85 05/03/2024 9:37 AM EDT Temperature - - Respiratory Rate - - Oxygen Saturation 97% 05/03/2024 9:37 AM EDT Inhaled Oxygen Concentration - - Weight 88.5 kg (195 lb) 05/03/2024 9:37 AM EDT Height 167.6 cm (5' 6 ) 05/03/2024 9:37 AM EDT Body Mass Index 31.47 05/03/2024 9:37 AM EDT Plan of Treatment Upcoming Encounters Date Type Department Care Team (Late st Contact Info) Description 10/05/2024 10:00 AM EDT Office Visit [facility] [address] [facility] [address] [place] [address] Dusty Sandoval MD [address] [facility] [address] [place] [address] Health Maintenance Due Date Last Done Comments Influenza Vaccine (#1) 2024 , 11/21/2021, 11/13/2020, Additional history exists Pneumococcal Vaccine: 65+ Years Completed 12/10/2022, 07/30/2021, 11/19/2018, Additional history exists Insurance [employer] Advance Directives Documents on File Type Date Recorded Patient Conveyor Worker Expl 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 Advance Directives and Living Will 09/07/2018 2018-09-07 HEALTH[facility] E POA Advance Directives and Living Will 09/07/2018 2018-09-07 LIVING WI [facility] Care Teams Applications Intern Relationship Specialty Start Date End Date Dusty Sandoval MD PCP - General Family Medicine 08/22/22 Dusty Sandoval MD [address] [facility] [address] [place] [address] PCP - ACO Reach 04/25/23 Mini Chávez DO [address] [place] [address] Referring Physician Neurology 05/14/23 Raisa Monroe OD [address] [place] [address] Referring Physician Optometry 05/28/23 Preston Salguero MD [address] [place], [place] [id number] Referring Physician Cardiology 05/03/24
--- OUTSIDE RECORDS SUMMARY | 2024-09-17 08:06 | XMS_ITS | Clinical Summary ---
Author Organization [employer] [facility] Address [id number] [place] [address] Care Team Providers Care Director Of Pupil Personnel Program Name Role Phone Dusty Sandoval MD Primary Care Provider [phone] Allergies No known active allergies Medications lisinopril (PRINIVIL,ZESTRI L) 20 mg tablet Take 20 mg by mouth daily. Active verapamil SR (CALAN-SR) 180 mg CR tablet Take 180 mg by mouth nightly. Active MULTIVITAMIN ORAL Take 1 tablet by mouth daily. Active Social History Tobacco Use Types Packs/Day Years Used Date Smoking Tobacco: Never Assessed Childcare Answer Date Recorded Childcare Unknown 08/05/2018 Employment Answer Date Recorded Employment Unknown 08/05/2018 Purpose - Life Answer Date Recorded Purpose and direction in life Unknown Comments Unknown Sex and Gender Information Value Date Recorded Sex Assigned at Not on file Legal Sex Female 11:24 AM EDT Gender Identity Not on file Sexual Orientation Not on file Last Filed Vital Signs Vital Sign Reading Time Taken Comments Blood Pressure 105/66 09/20/2016 10:50 AM EDT Pulse 76 09/20/2016 10:50 AM EDT Temperature - - Respiratory Rate 18 09/20/2016 9:55 AM EDT Oxygen Saturation 96% 09/20/2016 10:00 AM EDT Inhaled Oxygen Concentration - - Weight 70.3 kg (155 lb) 09/20/2016 8:24 AM EDT Height 167.6 cm (5' 6 ) 09/20/2016 8:24 AM EDT Body Mass Index 25.02 09/20/2016 8:24 AM EDT Plan of Treatment Not on file Medical Devices Not on file Insurance [employer] [place] Care Teams Director Of Pupil Personnel Program Relationship Specialty Start Date End Date Dusty Sandoval MD PCP - General 09/05/16
--- OUTSIDE RECORDS SUMMARY | 2024-09-17 08:06 | XMS_ITS | Encounter Summary ---
Author Organization [facility] Address [address] [place] [address] Care Team Providers Care Decaler Name Role Phone Dusty Sommers MD Primary Care Provider Mini Chávez DO Unavailable [phone] Raisa Monroe OD Unavailable Dusty Sommers MD Unavailable [phone] Preston Salguero MD Unavailable [phone] Encounter Details Date Type Department Care Team [...] How often do you attend chur or taoism services? Patient declined 09/12/2022 Do you belong to any clubs o r organizations such as baptist groups, unions, fraternal or athletic groups, or [...] Recorded Patient Health Questionnaire-2 Score 0 04/28/2023 [facility] - Occupational Stress [...] place to sleep or slept in a jail (including now)? No 09/12/2022 Education Answer Date [...] EDT Office Visit [facility] [address] [place] [address] Dusty Sommers MD [address] [facility] [address] [place] [address] documented as of this encounter Procedures Procedure Name Priority Date/Time Associated Diagnosis Comments XR CHEST 2V 09/30/2023 8:51 AM EDT [facility] VITAMIN D 25 [place] Routine 09/30/2023 8 :47 AM EDT [facility] CMP (CMP) (FOR REMOTE CRITICAL ACCESS [facility]OSPITAL USE) Routine 09/30/2023 8:47 AM EDT ALL THYROID STIM HORMONE Routine 09/30/2023 8:47 AM EDT ALL MAGNESIUM Routine 09/30/2023 8:47 AM EDT ALL LIPID PROFILE (FASTING) Routine 09/30/2023 8:47 AM EDT ALL CBC WITH AUTO DIFF Routine 09/30/2023 8:47 AM EDT documented in this encounter Results * XR CHEST 2V (09/30/2023 8:51 AM EDT) Anatomical Region Laterality Modality Other 09/30/2023 8:51 AM EDT Narrative 09/30/2023 8:53 [place] [address] XRay Report Signed Patient: ASHANTI ROSAS MR#: [id number] : 1945 Acct:[id number] Age/Sex: 78 / F ADM Date: 09/30/23 Loc: LAB Attending Dr: BLADIMIR SALGUERO Ordering Physician: BLADIMIR SALGUERO Date of Service: 09/30/23 Procedure(s): XR chest 2V Accession Number(s): [id number] cc: DUSTY SOMMERS ; BLADIMIR SALGUERO [facility] [place] [id number] Patient Name: ASHANTI ROSAS MRN: [id number] date: 1945 Sex: F Assigned Patient Location: LAB Current Patient Location: LAB Accession/Order Number: [id number] Exam Date: 09/30/2023 08:31 Report Date: 09/30/2023 08:51 At the request of: BLADIMIR SALGUERO Procedure: XR chest 2V PROCEDURE: XR chest 2V DATE: 09/30/2023 7:31 AM CDT COMPARISONS: 10/01/2022 CLINICAL INDICATION: 78 years Female New Onset Atrial Fibrillation, Mitral Valve Insufficiency FINDINGS: Heart is upper normal in size slightly more prominent than previous exam done one year earlier. The lungs are clear. There is no evidence of pleural effusion or pneumothorax. XR/XR chest 2V IMPRESSION: The heart appears slightly more prominent than previous exam. Chest is otherwise stable. Electronically authenticated by: KENNY CROWDER Date: 09/30/2023 08:51 Dictated By: Kenny Crowder M.D. Signed By: 09/30/23 0853 DD/ TD/TT: Apprentice Technician: Procedure Note Radiology, Radiologist, MD - 09/30/2023 [facility] [place] [id number] XRay Report Signed Patient: ASHANTI ROSAS AMR#: [id number] : 1945cct:[id number] Age/Sex: 78 / FADM Date: 09/30/23 Loc: LAB Attending Dr: BLADIMIR SALGUERO Ordering Physician: BLADIMIR SALGUERO Date of Service: 09/30/23 Procedure(s): XR chest 2V Accession Number(s): [id number] cc: DUSTY SOMMERS ; BLADIMIR SALGUERO The [address] [address] Patient Name: ASHANTI ROSAS MRN: [id number] date: 1945 Sex: F Assigned Patient Location: LAB Current Patient Location: LAB Accession/Order Number: [id number] Exam Date: 09/30/2023 08:31 Report Date: 09/30/2023 08:51 At the request of: BLADIMIR SALGUERO Procedure: XR chest 2V PROCEDURE: XR chest 2V DATE: 09/30/2023 7:31 AM CDT COMPARISONS: 10/01/2022 CLINICAL INDICATION: 78 years Female New Onset Atrial Fibrillation, Mitral Valve Insufficiency FINDINGS: Heart is upper normal in size slightly more prominent than previous examdone one year earlier. The lungs are clear. There is no evidence of pleural effusion or pneumothorax. XR/XR chest 2V IMPRESSION: The heart appears slightly more prominent than previous exam. Chest is otherwise stable. Electronically authenticated by: KENNY CROWDER Date: 09/30/2023 08:51 Dictated By: Kenny Crowder M.D. Signed By:09/30/2353 DD/ TD/TT: Apprentice Technician: Generic External Data Provider [facility] Final Result * [facility] VITAMIN D 25 [place] (09/30/2023 8:47 AM EDT) VITAMIN D 55.8 ng/mL TB Comment: <20 ng/mL Vit D deficient 20-<30 ng/mL Vit D insufficient 30-100 ng/mL Vit D sufficient >100 ng/mL Potential Toxicity 09/30/2023 8:47 AM EDT 09/30/2023 8:50 AM EDT Narrative [facility] - 09/30/2023 1:09 PM EDT Generic External Data Provider [facility] F inal Result Performing Organization Address [facility] de Phone Number [facility] * ALL THYROID STIM HORMONE (09/30/2023 8:47 AM EDT) THYROID STIMULATING HORMONE 2.309 0.358 - 3.740 uIU/mL TB 09/30/2023 8:47 AM EDT 09/30/2023 8:50 AM EDT Narrative [facility] - 09/30/2023 10:01 AM EDT Generic External Data Provider [facility] F inal Result Performing Organization Address [facility] de Phone Number [facility] * ALL LIPID PROFILE (FASTING) (09/30/2023 8:47 AM EDT) TRIGLYCERIDES 65 <=150 mg/dL TB CHOLESTEROL 133 <=200 mg/dL TB HDL CHOLESTEROL 52 40 - 60 mg/dL TB Comment: > or =60 mg/dl - LOW CARDIOVASCULAR RISK <40 mg/dl - HIGH CARDIOVASCULAR RISK LDL CHOLESTEROL CALCULATED 68.0 mg/dL TB Comment: <100 mg/dl OPTIMAL 100-129 mg/dl NEAR OR ABOVE OPTIMAL 130-159 mg/dl BORDERLINE HIGH 160-189 mg/dl HIGH >190 mg/dl VERY HIGH VLDL CHOLESTEROL 13.0 mg/dL TB CHOL HDL RATIO 2.6 TB Comment: 3.3 - 4.4 LOW RISK 4.4 - 7.1 AVERAGE RISK 7.1 - 11.0 MODERATE RISK >11.0 HIGH RISK 09/30/2023 8:47 AM EDT 09/30/2023 8:50 AM EDT Narrative [facility] - 09/30/2023 10:01 AM EDT Generic External Data Provider [facility] F inal Result [facility] * ALL MAGNESIUM (09/30/2023 8:47 AM EDT) MAGNESIUM 1.9 1.8 - 2.4 mg/dL TB 09/30/2023 8:47 AM EDT 09/30/2023 8:50 AM EDT Narrative [facility] - 09/30/2023 10:01 AM EDT Generic External Data Provider [facility] F inal Result [facility] * (ABNORMAL) [facility] CMP (CMP) (FOR REMOTE CRITICAL ACCESS HOSPITAL USE) (09/30/2023 8:47 AM EDT) SODIUM 141 136 - 145 mmol/L TBH POTASSIUM 4.3 3.5 - 5.1 mmol/L TBH CHLORIDE 103 98 - 107 mmol/L TBH CARBON DIOXIDE 25.7 21.0 - 32.0 mmol/L TBH ANION GAP 16.6 TBH GLUCOSE 105 74 - 106 mg/dL TBH BLOOD UREA NITROGEN 35.0(H) 7.0 - 18.0 mg/dL TBH CREATININE 1.93(H) 0.55 - 1.02 mg/dL TBH TBH EGFR-AF CUBAN 31(L) >=60 TBH TBH EGFR-NON AF CUBAN 25(L) >=60 TBH BUN CREATININE RATIO 18.1 TBH CALCIUM 9.4 8.5 - 10.1 mg/dL TBH BILIRUBIN TOTAL 0.6 0.2 - 1.0 mg/dL TBH ASPARTATE AMINO TRANSFERASE 25 15 - 37 U/L TBH ALANINE AMINOTRANSFERASE 32 14 - 59 U/L TBH ALKALINE PHOSPHATASE 81 46 - 116 U/L TBH TOTAL PROTEIN 7.5 6.4 - 8.2 g/dL TBH ALBUMIN LEVEL 3.9 3.4 - 5.0 g/dL TBH GLOBULIN 3.6 g/dL TBH ALBUMIN GLOBULIN RATIO 1.1 TB 09/30/2023 8:47 AM EDT 09/30/2023 8:50 AM EDT Narrative [facility] - 09/30/2023 10:01 AM EDT us Generic External Data Provider [facility] F [facility] * ([facility]NORMAL) ALL CBC WITH AUTO DIFF (09/30/2023 8:47 AM EDT) TB WBC 7.3 4.0 - 11.0 10 3/uL TBH TB RBC 3.95(L) 4.20 - 5.40 10 6/uL TBH TB HGB 11.9(L) 12.0 - 16.0 g/dL TB TB HCT 36.5 36.0 - 48.0 % TB TB MCV 92.4 81.0 - 99.0 fL TB TB MCH 30.1 26.7 - 34.0 pg TBH TB MCHC 32.6 29.9 - 35.2 g/dL TB TB RDW 13.4 11.0 - 15.0 % TBH TB PLT 278 150 - 450 10 3/uL TBH TB MPV 10.6 9.5 - 13.5 fL TBH NEUTROPHILS PERCENT AUTO 57.3 43.0 - 75.0 % TBH LYMPHOCYTES PERCENT AUTO 29.3 20.5 - 60.0 % TBH MONOCYTES PERCENT AUTO 9.8 1.7 - 12.0 % TBH TBH EO % 3.0 0.9 - 7.0 % TBH BASOPHILS PERCENT AUTO 0.3 0.2 - 2.0 % TBH IMMATURE GRANULOCYTES PCT AUTO 0.3 0.0 - 0.5 % TBH NEUTROPHILS ABSOLUTE AUTO 4.2 1.4 - 6.5 10 3/uL TBH LYMPHOCYTES ABSOLUTE AUTO 2.1 1.2 - 3.8 10 3/uL TBH MONOCYTES ABSOLUTE AUTO 0.7 0.3 - 0.8 10 3/uL TBH TBH EO # 0.2 0.0 - 0.7 10 3/uL TBH BASOPHILS ABSOLUTE AUTO 0.0 0.0 - 0.1 10 3/uL TBH IMMATURE GRANULOCYTES ABS AUTO 0.02 0.00 - 0.03 10 3/uL TBH 09/30/2023 8:47 AM EDT 09/30/2023 8:50 AM EDT Narrative [facility] - 09/30/2023 9:23 AM EDT us Generic External Data Provider [facility] F inal Result [facility] documented in this encounter Visit Diagnoses Not on filedocumented in this encounter Additional Health Concerns Assessment Noted Time PHQ-9 Depression Total Score: 0 09/20/19 23 10:00 AM EDT documented as of this encounter Care Teams Decaler Relationship Specialty Start Date End Date Dusty Sommers MD PCP - General Family Medicine 08/22/22 Dusty Sommers MD [address] [facility] [address] [place] [address] PCP - ACO Reach 04/25/23 Mini Chávez DO [address] [place] [address] Referring Physician Neurology 05/14/23 Raisa Monroe OD [address] [place] [address] Referring Physician Optometry 05/28/23 Preston Salguero MD [address] [place] [address] Referring Physician Cardiology 05/03/24 documented as of this encounter
--- OUTSIDE RECORDS SUMMARY | 2024-09-17 08:06 | XMS_ITS | Encounter Summary ---
Author Organization [facility] Address [address] [place] [address] Care Team Providers Care Cleaner Touch Up Worker Name Role Phone Dusty Sandoval MD Primary Care Provider Mini Chávez DO Unavailable [phone] Raisa Monroe OD Unavailable Dusty Sandoval MD Unavailable [phone] Preston Salguero MD Unavailable [phone] Encounter Details Date Type Department Care Team (Late st Contact Info) Description 10/01/2022 Orders Only [facility] [address] [facility] [place] [address] Dusty Sandoval MD [address] [facility] [address] [place] [address] Social History Tobacco Use Types [...] often do you attend chur ch or jew services? Patient declined 09/12/2022 Do you belong [...] Recorded Patient Health Questionnaire-2 Score 0 09/19/2022 [facility] - Occupational Stress [...] place to sleep or slept in a long term (including now)? No 09/12/2022 Education Answer Date [...] Office Visit [facility] [address] [facility] [address] [place] [address] Dusty Sandoval MD [address] [facility] [address] [place] [address] documented as of this encounter Procedures Procedure Name Priority Date/Time Associated Diagnosis Comments XR CHEST 2 VIEWS Routine 10/01/2022 11:07 AM EDT documented in this encounter Results * XR chest 2 views (10/01/2022 11:07 AM EDT) Anatomical Region Laterality Modality Chest Radiographic Ruthy ging Dusty Sandoval MD IMG XR PROCEDURES Final Resu lt documented in this encounter Visit Diagnoses Not on filedocumented in this encounter Additional Health Concerns Assessment Noted Time PHQ-9 Depression Total Score: 0 09/20/19 10:00 AM EDT documented as of this encounter Care Teams Cleaner Touch Up Worker Relationship Specialty Start Date End Date Dusty Sandoval MD PCP - General Family Medicine 08/22/22 Dusty Sandoval MD [address] [facility] [address] [place] [address] PCP - ACO Reach 04/25/23 Mini Chávez DO [address] [place] [address] Referring Physician Neurology 05/14/23 Raisa Monroe OD [address] [place] [address] Referring Physician Optometry 05/28/23 Preston Salguero MD [address] [place] [address] Referring Physician Cardiology 05/03/24 documented as of this encounter
--- NOTE | 2024-09-17 08:17 | XR_ITS ---
The [address] [address] Patient Name: CARMEN ROSAS MRN: [id number] date: 1945 Sex: F Assigned Patient Location: LAB Current Patient Location: LAB Accession/Order Number: [id number] Exam Date: 09/17/2024 10:04 Report Date: 09/17/2024 10:05 At the request of: BLADIMIR JI Procedure: XR chest 2V Chest 2 views CLINICAL HISTORY: Atrial Fibrilation New Onset, Mitral Valve Insufficiency COMPARISON: Chest 09/30/2023 FINDINGS: Heart normal in size. No lung consolidation pneumothorax pleural effusion or free air. Osseous structures demonstrate degenerative change with mild compression deformities involving the thoracic spine similar to the prior study. XR/XR chest 2V IMPRESSION: NO ACUTE CARDIOPULMONARY ABNORMALITY. Impression dictated by: Musa Rg Jr., D.O. 09/17/2024 10:05 AM Dictation Location: [facility] Electronically authenticated by: [id number] Y Date: 09/17/2024 10:05
--- OUTSIDE RECORDS SUMMARY | 2024-09-17 08:19 | XMS_ITS | CCD ---
Author Organization [facility] CliniSyct Care Team Providers Care Sampler Ovens Name Role Phone Dusty Sommers Primary Care Provider [phone] [phone] CARLOS ONEILL Attending Unavailable MATTHIEU, EDDOMO Primary Care Unavailable HEMECARY, EDDOMO Referring Unavailable JOSIAH ONEILLIL Admitting Unavailable ND Procedure Practitioner Unavailab le ROBERTO CARLOS ONEILL Surgeon Unavailable SARAHI JARAMILLO Admitting Unavailable SARAHI JARAMILLO Attending Unavailable MATTHIEU, EDDOMO Primary Care Unavailable SELF, REFERRED Referring Unavailable BLADIMIR JARAMILLOORY Admitting Unavailable SARAHI JARAMILLO Attending Unavailable MATTHIEU, EDDOMO Primary Care Unavailable HEMEYER, EDWARD Referring Unavailable ELLASARAHI Espino Attending Unavailable ELLA, SARAHI Admitting Unavailable HEMEYER, EDWARD Referring Unavailable HEMEYER, EDDOMO Primary Care Unavailable HEMEYER, EDWARD Referring Unavailable ELLA, SARAHI Admitting Unavailable ELLA, SARAHI Attending Unavailable HEMEYER, EDWARD Primary Care Unavailable Dusty Sommers MD Primary Care Provider [phone] BLADIMIR SALGUERO Referring Unavailable DUSTY SOMMERS Primary Care Unavailable BLADIMIR SALGUERO Admitting Unavailable BLADIMIR SALGUERO Attending Unavailable DR DUSTY SOMMERS Primary Care Unavailable [place], DR Barba Consulting Unavailable BLADIMIR SALGUERO Consulting Unavailable Dusty Sommers MD Primary Care Provider Mini Chávez DO Unavailable Mario Gardner MD Unavailable Dusty Sommers MD Unavailable Dusty Sommers MD Primary Care Provider [phone] Mario Monroe OD Unavailable Dusty Sommers MD Unavailable DUSTY SOMMERS Attending Unavailable DUSTY SOMMERS Attending Unavailable ERICK FERRIS Attending Unavailable MARIO MONROE Referring Unavailable DUSTY SOMMERS Attending Unavailable Allergies Allergy Classification Reported Allergen(s) Allergy Type Date of Onset Reaction(s) Facility (7 sources) Lisinopril Allergy to substance 09-17-2022 [facility] Medications Current Medications Medication Drug Class(es) Dates Sig (Normalized) Sig (Original) aspirin 81 mg delayed release oral tablet (1 source) Platelet Aggregation Inhibitor, Nonsteroidal Anti-inflammatory Drug take 1 tablet by mouth once daily aspirin 81 MG EC tablet Take 81 mg by mouth daily 0 Active calcium citrate 1040 mg oral tablet (7 sources) calcium citrate 1040 MG tablet 2 (two) times a day Active calcium citrate 1040 MG tablet every 6 (six) hours. Active cholecalciferol 0.05 mg oral capsule (2 sources) Vitamin D Cholecalciferol (VITAMIN D3) 50 MCG (1999) CAPS Take by mouth 0 Active 24 hr dilTIAZem hydrochloride 180 mg extended release oral capsule (13 sources) Calcium Channel Cece Start: 04-28-19 End: 10-13-19 25 take 2 capsules by mouth once daily dilTIAZem CD (Cardizem CD) 180 MG 24 hr capsule Indications: Primary hypertension (CMS/HCC) Take 2 capsules (360 mg) by mouth Daily 180 capsule 1 04/15/2024 10/12/2024 Active take 2 capsules by mouth once da mia dilTIAZem (DILACOR XR) 180 MG extended release capsule Take 360 mg by mouth daily 0 Active famotidine 20 mg oral tablet (2 sources) Histamine-2 Receptor Antagonist take 1 tablet by mouth twice daily famotidine (PEPCID) 20 MG tablet Take 20 mg by mouth 2 times daily 0 Active hydrALAZINE hydrochloride 50 mg oral tablet (13 sources) Arteriolar Vasodilator Start: 04-28-19 End: 10-13-19 25 take 1 tablet by mouth in the morning hydrALAZINE (Apresoline) 50 MG tablet Indications: Primary hypertension (CMS/HCC) Take 1 tablet (50 mg) by mouth in the morning and 1 tablet (50 mg) before bedtime. 180 tablet 1 04/15/2024 10/12/2024 Active Start: 07-20-2020 take 1 tablet by maddison th twice daily hydrALAZINE (APRESOLINE) 50 MG tablet Take 1 tablet by mouth 2 times daily 180 tablet 3 07/20/2020 Active take 1 tablet by maddison th three times daily hydrALAZINE (APRESOLINE) 10 MG tablet Take 10 mg by mouth 3 times daily 0 Active hydroCHLOROthiazide 25 mg / triamterene 37.5 mg oral tablet (12 sources) Potassium-sparing Diuretic, Thiazide Diuretic Start: 10-20-2023 End: 10-12-2024 take 1 tablet by mouth once daily triamterene-hydrochlorothiazide (Maxzide-25) 37.5-25 MG tablet Indications: Primary hypertension (CMS/HCC) Take 1 tablet by mouth Daily 90 tablet 1 04/15/2024 10/12/2024 Active Start: 11-18-2022 End: 10-20-2023 take 1 tablet by mouth in the morning triamterene-hydrochlorothiazide (Maxzide -25) 37.5-25 MG tablet Indications: Primary hypertension (CMS/HCC) Take 1 tablet by mouth in the morning. 90 tablet 11/18/2022 10/20/2023 Discontinued (Reorder) Start: 08-29-2020 take 1 tablet by maddison th once daily triamterene-hydroCHLOROthiazide (MAXZIDE -25) 37.5-25 MG per tablet Take 1 tablet by mouth daily 30 tablet 11 08/29/2020 Active metoprolol tartrate 25 mg oral tablet (13 sources) beta-Adrenergic Cece Start: 04-28-2023 End: 10-12-2024 take 1 tablet by mouth in the morning metoprolol tartrate (Lopressor) 25 MG tablet Indications: Primary hypertension (CMS/HCC) , Longstanding persistent atrial fibrillation (CMS/HCC) Take 1 tablet (25 mg) by mouth in the morning and 1 tablet (25 mg) before bedtime. 180 tablet 1 04/15/2024 10/12/2024 Active take 1 tablet by mouth twice john ly metoprolol tartrate (LOPRESSOR) 25 MG tablet Take 25 mg by mouth 2 times daily 0 Active rivaroxaban 20 mg oral tablet (13 sources) Factor Xa Inhibitor Start: 04-28-2023 End: 10-12-2024 take 1 tablet by mouth at mealtime rivaroxaban (Xarelto) 20 MG tablet Indications: Longstanding persistent atrial fibrillation (CMS/HCC) Take 1 tablet (20 mg) by mouth in the evening. Take with meals 90 tablet 1 04/15/2024 10/12/2024 Active rivaroxaban (XAR ELTO) 20 MG TABS tablet Take 20 mg by mouth 0 Active rosuvastatin calcium 5 mg oral tablet (12 sources) HMG-CoA Reductase Inhibitor Start: 04-28-2023 End: 10-12-2024 take 1 tablet by mouth in the evening rosuvastatin (Crestor) 5 MG tablet Indications: Mixed dyslipidemia (CMS/HCC) Take 1 tablet (5 mg) by mouth in the evening 90 tablet 1 04/15/2024 10/12/2024 Active Start: 05-16-2020 take 1 tablet by maddison th once daily rosuvastatin (CRESTOR) 5 MG tablet Take 1 tablet by mouth daily 90 tablet 3 05/16/2020 Active 1000 ml sodium chloride 4.5 mg/ml injection (1 source) Start: 09-27-2019 0.45 % sodium chloride infusion Completed/Discontinued Medications Medication Drug Class(es) Dates Sig (Normalized) Sig (Original) 20 ml propofol 10 mg/ml injection (2 sources) General Anesthetic Start: 09-27-2019 End: 09-27-2019 propofol injection Problems Active Problems Problem Classification Problem Date Documented Date Episodic/Chronic Acute myocardial infarction (7 sources) Myocardial infarction; Translations: [ST elevation (STEMI) myocardial infarction involving other sites] Onset: 09-17-2022 09-17-2022 Chronic Anxiety disorders (7 sources) Generalized anxiety disorder; Translations: [Generalized anxiety disorder] Onset: 09-17-2022 09-17-2022 Chronic Cardiac dysrhythmias (19 sources) Atrial fibrillation; Translations: [Unspecified atrial fibrillation] Onset: 10-01-2021 Chronic Cataract (7 sources) Bilateral age-related nuclear cataracts; Translations: [Age-related nuclear cataract, bilateral] Onset: 05-28-2023 05-28-2023 Chronic Chronic kidney disease (17 sources) Chronic kidney disease stage 3B ; Translations: [Stage 3b chronic kidney disease (HCC)] Onset: 09-17-2022 Resolved: 10-20-2023 09-17-2022 Chronic Chronic obstructive pulmonary disease and bronchiectasis (7 sources) Simple chronic bronchitis; Translations: [Simple chronic bronchitis] Onset: 09-17-2022 09-17-2022 Chronic Complications of surgical procedures or medical care (7 sources) Postsurgical menopause; 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] Onset: 09-17-2022 09-17-2022 Chronic Diseases of white blood cells (7 sources) Granulomatous disorder; 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] Onset: 09-17-2022 09-17-2022 Chronic Disorders of lipid metabolism (19 sources) Dyslipidemia; Translations: [Mixed hyperlipidemia] Onset: 04-05-2021 Resolved: 11-11-2022 09-17-2022 Chronic Esophageal disorders (7 sources) Gastroesophageal reflux disease without esophagitis; Translations: [Gastro-esophageal reflux disease without esophagitis] Onset: 09-17-2022 09-17-2022 Chronic Essential hypertension (12 sources) Essential hypertension; Translations: [Essential (primary) hypertension] Onset: 09-17-2022 09-17-2022 Chronic Heart valve disorders (16 sources) Rheumatic tricuspid insufficiency; 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] Onset: 10-24-2021 09-17-2022 Chronic Hypertension with complications and secondary hypertension (11 sources) Hypertensive renal disease; Translations: [Hypertensive chronic kidney disease with stage 1 through stage 4 chronic kidney disease, or unspecified chronic kidney disease] Onset: 09-17-2022 09-17-2022 Chronic Nutritional deficiencies (8 sources) Vitamin D deficiency, unspecified; Translations: [Vitamin D deficiency] Onset: 10-24-2021 09-17-2022 Chronic Osteoporosis (7 sources) Osteoporosis; Translations: [Age-related osteoporosis without current pathological fracture] Onset: 09-17-2022 09-17-2022 Chronic Other aftercare (9 sources) Long-term current use of anticoagulant; Translations: [group home (current) use of anticoagulants] Onset: 08-18-2019 11-11-2022 Episodic Other aftercare (9 sources) Polypharmacy ; Translations: [Other snf (current) drug therapy] Onset: 10-16-2020 11-11-2022 Episodic Other and ill-defined heart disease (7 sources) Bilateral enlargement of atria; Translations: [Cardiomegaly] Onset: 09-17-2022 09-17-2022 Chronic Other and ill-defined heart disease (7 sources) Right ventricular hypertrophy; Translations: [Cardiomegaly] Onset: 09-17-2022 09-17-2022 Chronic Other connective tissue disease (7 sources) Artificial knee joint present; Translations: [Presence of left artificial knee joint] Onset: 09-17-2022 09-17-2022 Chronic Other lower respiratory disease (7 sources) Post-inflammatory pulmonary fibrosis; Translations: [Pulmonary fibrosis, unspecified] Onset: 08-25-2019 11-11-2022 Chronic Other screening for suspected conditions (not mental disorders or infectious disease) (3 sources) Electrocardiogram abnormal; Translations: [Encounter for screening for lipoid disorders] Onset: 10-24-2021 Episodic Other upper respiratory disease (7 sources) Allergic rhinitis; Translations: [Other allergic rhinitis] Onset: 09-17-2022 09-17-2022 Chronic Pulmonary heart disease (7 sources) Pulmonary hypertension; Translations: [Pulmonary hypertension, unspecified] Onset: 09-17-2022 09-17-2022 Chronic Residual codes; unclassified (7 sources) Dependence on enabling machine or device; Translations: [Dependence on other enabling machines and devices] Onset: 09-17-2022 09-17-2022 Chronic Residual codes; unclassified (7 sources) Obstructive sleep apnea syndrome; Translations: [Obstructive sleep apnea (adult) (pediatric)] Onset: 09-17-2022 09-17-2022 Chronic Unclassified (1 source) History of clinical finding in subject; Translations: [History of cardiac murmur] Past or Other Problems Problem Classification Problem Date Documented Da te Episodic/Chronic Mood disorders (7 sources) Mood disorders Onset: 09-19-2022 09-19-2022 Other bone disease and musculoskeletal deformities (7 sources) Osteopenia; Translations: [Other specified disorders of bone density and structure, unspecified site] Onset: 09-17-2022 09-17-2022 Episodic Other nutritional; endocrine; and metabolic disorders (9 sources) Overweight; Translations: [Overweight] Onset: 09-17-2022 Resolved: 04-12-2024 09-17-2022 Episodic Results Test Name Value Interpretation Reference Range Facility BASIC METABOLIC PANELon 03-27 Calcium [Mass/Vol] 8.9 mg/dL Normal 8.6-10.4 [facility] Comment on above: Performed By: #### 1 [id number], 8509 #### [facility] [address] [place], [place] [id number] [employer] Servicer: Linh Tapia Chloride [Moles/Vol] 106 mmol/L Normal 98-110 [facility] Comment on above: Performed By: #### 1 0165, 6399 #### [facility] [address] [place], [place] [id number] [employer] Servicer: Linh Jiménezi CO2 [Moles/Vol] 26 mmol/L Normal 20-32 [facility] Comment on above: Performed By: #### 1 0165, 6399 #### [facility] [address] [place], [place] [id number] [employer] Servicer: Linh Tapia Creatinine [Mass/Vol] 2.00 mg/dL High 0.60-1.00 [facility] Comment on above: Performed By: #### 1 0165, 6399 #### [facility] [address] [place] [address] [employer] Servicer: Linh Tapia GFR/1.73 sq M.predicted among non-blacks MDRD (S/P/Bld) [Vol rate/Area] 25 mL/min/{1.73_m2} Low > OR = 60 [facility] Comment on above: Performed By: #### 1 0165, 6399 #### [facility] [address] [place] [address] [employer] Servicer: Linh Tapia Glucose [Mass/Vol] 133 mg/dL High 65-99 [facility] Comment on above: Result Comment: Fasting reference interval For someone without known diabetes, a glucose value >125 mg/dL indicates that they may have diabetes and this should be confirmed with a follow-up test. Performed By: #### 1 0165, 6399 #### [facility] [address] [place], [place] [id number] [employer]icer: Linh Tapia Potassium [Moles/Vol] 4.1 mmol/L Normal 3.5-5.3 [facility] Comment on above: Performed By: #### 1 0165, 6399 #### [facility] [address] [place], [place] [id number] [employer] Servicer: Linh Tapia Sodium [Moles/Vol] 141 mmol/L Normal 135-146 [facility] Comment on above: Performed By: #### 1 0165, 6399 #### [facility] [address] [place] [address] [employer] Servicer: Linh Tapia Urea nitrogen [Mass/Vol] 37 mg/dL High 7-25 [facility] Comment on above: Performed By: #### 1 0165, 6399 #### [facility] [address] [place] [address] [employer]icer: Linh Tapia Urea nitrogen/Creatinine [Mass ratio] 19 mg/mg Normal 6-22 [facility] Comment on above: Performed By: #### 1 0165, 6399 #### [facility] [address] [employer]: Linh Tapia CBC (INCLUDES DIFF/PLT)on Basophils (Bld) [#/Vol] 0.017 10*3/uL Normal 0-200 [facility] Comment on above: Performed By: #### 1 016, 6399 #### [facility] [address] [employer] Servicer: Linh Tapia Basophils/100 WBC (Bld) 0.2 % Normal [facility] Comment on above: Performed By: #### 1 016, 6399 #### [facility] [place] [address] [employer] Servicer: Linh Tapia COMMENT(S) Normal [facility] Comment on above: Result Comment: Spec imen was prewarmed to 37 degrees to obtain results. Cold agglutinin/cryoglobulin suspected. Review of peripheral smear confirms automated results. Performed By: #### 1 0165, 6399 #### [facility] [address] [place] [address] [employer] Servicer: Linh Tapia Eosinophils (Bld) [#/Vol] 0.241 10*3/uL Normal 15-500 [facility] Comment on above: Performed By: #### 1 0165, 6399 #### [facility] [address] [place], [place] [id number] [employer] Servicer: Linh Hudson Jessydevon Eosinophils/100 WBC (Bld) 2.8 % Normal [facility] Comment on above: Performed By: #### 1 164, 6399 #### [facility] [employer] Servicer: Linh Tapia Erythrocyte distribution width (RBC) [Ratio] 13.4 % Normal 11.0-15.0 [facility] Comment on above: Performed By: #### 1 164, 6399 #### [facility] [address] [employer] Servicer: Linh Tapia Hematocrit (Bld) [Volume fraction] 37.7 % Normal 35.0-45.0 [facility] Comment on above: Performed By: #### 1 164, 63 #### [facility] [address] [employer] Servicer: Linh Hudson Jessydevon Hemoglobin (Bld) [Mass/Vol] 12.2 g/dL Normal 11.7-15.5 [facility] Comment on above: Performed By: #### 1 164, 6316 #### [facility]-[address] [employer] Servicer: Linh Hudson Jessydevon Lymphocytes (Bld) [#/Vol] 2.632 10*3/uL Normal 850-3900 [facility] Comment on above: Performed By: #### 1 164, 6399 #### [facility]-[address] [employer] Servicer: Linh Hudson Jessydevon Lymphocytes/100 WBC (Bld) 30.6 % Normal [facility] Comment on above: Performed By: #### 1 016, 6399 #### [facility] [address] [place], [place] [id number] [employer] Servicer: Linh Tapia MCH (RBC) [Entitic mass] 28.8 pg Normal 27.0-33.0 [facility] Comment on above: Performed By: #### 1 016, 6399 #### [facility] [address] [employer] Servicer: Linh Tapia MCHC (RBC) [Mass/Vol] 32.4 g/dL Normal 32.0-36.0 [facility] Comment on above: Result Comment: For adults, a slight decrease in the calculated MCHC value (in the range of 30 to 32 g/dL) is most likely not clinically significant; however, it should be interpreted with caution in correlation with other red cell parameters and the patient's clinical condition. Performed By: #### 1 164, 6399 #### [facility] [address] [employer]icer: Linh Tapia MCV (RBC) [Entitic vol] 89.1 fL Normal 80.0-100.0 [facility] Comment on above: Performed By: #### 1 164, 63 #### [facility] [place] [address] [employer] Servicer: Linh Tapia Monocytes (Bld) [#/Vol] 0.963 10*3/uL High 200-950 [facility] Comment on above: Performed By: #### 1 164, 6399 #### [facility] [address] [employer] Servicer: Linh Tapia Monocytes/100 WBC (Bld) 11.2 % Normal [facility] Comment on above: Performed By: #### 1 164, 6399 #### [facility] [address] [place] [address] [employer]icer: Linh Tapia Neutrophils (Bld) [#/Vol] 4.747 10*3/uL Normal 4512-9502 [facility] Comment on above: Performed By: #### 1 164, 6399 #### [facility] [address] [place] [address] [employer]icer: Linh Tapia Neutrophils/100 WBC (Bld) 55.2 % Normal [facility] Comment on above: Performed By: #### 1 0165, 6399 #### [facility] [address] [place] [phone] [employer]icer: Linh Tapia Platelet mean volume (Bld) [Entitic vol] 10.4 fL Normal 7.5-12.5 [facility] Comment on above: Performed By: #### 1 0165, 6399 #### [facility] [address] [place] [id number] [employer]icer: Linh Tapia Platelets (Bld) [#/Vol] 319 10*3/uL Normal 140-400 [facility] Comment on above: Performed By: #### 1 0165, 6399 #### [facility] [address] [place] [phone] [employer]icer: Linh Tapia RBC (Bld) [#/Vol] 4.23 10*6/uL Normal 3.80-5.10 [facility] Comment on above: Performed By: #### 1 0165, 6399 #### [facility] [address] [place] [phone] [employer]icer: Linh Tapia WBC (Bld) [#/Vol] 8.6 10*3/uL Normal 3.8-10.8 [facility] Comment on above: Performed By: #### 1 0165, 6399 #### [facility] [address] [place] [phone] [employer]icer: Linh Tapia VIT D 25-OH LABCORPon 2021 Vitamin D, 25-Hydroxy 64.4 ng/mL Normal 30.0-100.0 [facility] Comment on above: Result Comment: Sayra min D deficiency has been defined by the [place] of [employer] and an Endocrine Society practice guideline as a level of serum 25-OH vitamin D less than 20 ng/mL (1,2). The Endocrine Society went on to further define vitamin D insufficiency as a level between 21 and 29 ng/mL (2). 1. IOM ([place] of [employer]). 2010. Dietary reference intakes for calcium and D. [place]: The National Academies Press. 2. Ericka MF, Lana NC, Ana LiliaAlfred BETHEA et al. Evaluation, treatment, and prevention of vitamin D deficiency: an Endocrine Society clinical practice guideline. JCEM. 2010; 96(7):1911-30. Performed By: #### V ITADLC #### [facility] [address] [place] [address] Dr. Oneida Brady CBC AUTO DIFFon 10-01-2021 BASO # 0.1 103/ul Normal 0.0-0.1 [facility] Comment on above: Performed By: #### C BC #### [facility] [address] [place] [address] Dr. Oneida Brady Basophils/100 WBC (Bld) 0.7 % Normal 0.2-2.0 [facility] Comment on above: Performed By: #### C BC #### [facility] [address] [place] [address] Dr. Oneida Brady EO # 0.2 103/ul Normal 0.0-0.7 [facility] Comment on above: Performed By: #### C BC #### [facility] [address] [place] [address] Dr. Oneida Brady Eosinophils/100 WBC (Bld) 2.6 % Normal 0.9-7.0 [facility] Comment on above: Performed By: #### C BC #### [facility] [address] [place] [address] Dr. Oneida Brady Erythrocyte distribution width (RBC) [Ratio] 13.1 % Normal 11.0-15.0 [facility] Comment on above: Performed By: #### C BC #### [facility] [address] [place] [address] Dr. Oneida Brady Hematocrit (Bld) [Volume fraction] 42.9 % Normal 36.0-48.0 [facility] Comment on above: Performed By: #### C BC #### [facility] [address] [place] [address] Dr. Oneida Brady Hemoglobin (Bld) [Mass/Vol] 14.2 g/dL Normal 12.0-16.0 [facility] Comment on above: Performed By: #### C BC #### [facility] [address] [place] [address] Dr. Oneida Brady IG # 0.03 10e3/ul Normal 0.00-0.03 [facility] Comment on above: Performed By: #### C BC #### [facility] [address] [place] [address] Dr. Oneida Brady IG % 0.3 % Normal 0.0-0.5 [facility] Comment on above: Performed By: #### C BC #### [facility] [address] [place] [address] Dr. Oneida Brady LYMPH # 2.5 103/ul Normal 1.2-3.8 [facility] Comment on above: Performed By: #### C BC #### [facility] [address] [place] [address] Dr. Oneida Brady Lymphocytes/100 WBC (Bld) 28.3 % Normal 20.5-60.0 [facility] Comment on above: Performed By: #### C BC #### [facility] [address] [place] [address] Dr. Oneida Brady MANUAL DIFF REQ NO Normal [facility] Comment on above: Performed By: #### C BC #### [facility] [address] [place] [address] Dr. Oneida Brady MCH (RBC) [Entitic mass] 29.5 pg Normal 26.7-34.0 [facility] Comment on above: Performed By: #### C BC #### [facility] [address] [place] [address] Dr. Oneida Brady MCHC (RBC) [Mass/Vol] 33.1 g/dL Normal 29.9-35.2 [facility] Comment on above: Performed By: #### C BC #### [facility] [address] [place] [address] Dr. Oneida Brady MCV (RBC) [Entitic vol] 89.0 fL Normal 81.0-99.0 [facility] Comment on above: Performed By: #### C BC #### [facility] [address] [place] [address] Dr. Oneida Brady MONO # 0.8 103/ul Normal 0.3-0.8 [facility] Comment on above: Performed By: #### C BC #### [facility] [address] [place] [address] Dr. Oneida Brady Monocytes/100 WBC (Bld) 9.4 % Normal 1.7-12.0 [facility] Comment on above: Performed By: #### C BC #### [facility] [address] [place] [address] Dr. Oneida Brady NEUT # 5.2 103/ul Normal 1.4-6.5 [facility] Comment on above: Performed By: #### C BC #### [facility] [address] [place] [address] Dr. Oneida Brady Neutrophils/100 WBC (Bld) 58.7 % Normal 43.0-75.0 [facility] Comment on above: Performed By: #### C BC #### [facility] [address] [place] [address] Dr. Oneida Brady Platelet mean volume (Bld) [Entitic vol] 10.5 fL Normal 9.5-13.5 [facility] Comment on above: Performed By: #### C BC #### [facility] [address] [place] [address] Dr. Oneida Brady PLT 284 103/ul Normal 150-450 [facility] Comment on above: Performed By: #### C BC #### [facility] [address] [place] [address] Dr. Oneida Brady RBC 4.82 106/ul Normal 4.20-5.40 [facility] Comment on above: Performed By: #### C BC #### [facility] [address] [place] [address] Dr. Oneida Brady WBC 8.8 103/ul Normal 4.0-11.0 [facility] Comment on above: Performed By: #### C BC #### [facility] [address] [place] [address] Dr. Oneida Brady LIPID PROFILEon 10-01-2021 CHOL-HDL RATIO NORM SEE BELOW Normal [facility] Comment on above: Result Comment: 3.3 - 4.4 LOW RISK 4.4 - 7.1 AVERAGE RISK 7.1 - 11.0 MODERATE RISK >11.0 HIGH RISK Performed By: #### C MP, MG, TSH, LIPID #### [facility] [address] [address] [address] Oneida Brady Cholesterol [Mass/Vol] 158 mg/dL Normal <=200 [facility] Comment on above: Performed By: #### C MP, MG, TSH, LIPID #### [facility] [address] [address] [address] Oneida Brady Cholesterol in HDL [Mass/Vol] 51 mg/dL Normal 40-60 [facility] Comment on above: Performed By: #### C MP, MG, TSH, LIPID #### [facility] [address] [address] [address] Oneida Brady Cholesterol in LDL [Mass/Vol] 83.2 mg/dL Normal [facility] Comment on above: Performed By: #### C MP, MG, TSH, LIPID #### [facility] [address] [address] [address] Oneida Brady Cholesterol.total/C holesterol in HDL [Mass ratio] 3.1 {ratio} Normal [facility] Comment on above: Performed By: #### C MP, MG, TSH, LIPID #### [facility] [address] [address] [address] Oneida Brady HDL NORMAL > or = 60 mg/dl - LOW CARDIOVASCULAR RISK <40 mg/dl - HIGH CARDIOVASCULAR RISK Normal [facility] Comment on above: Performed By: #### C MP, MG, TSH, LIPID #### [facility] [address] [address] [address] Oneida Brady LDL CALC NORMAL SEE BELOW Normal [facility] Comment on above: Result Comment: <100 mg/dl OPTIMAL 100 - 129 mg/dl NEAR OR ABOVE OPTIMAL 130 - 159 mg/dl BORDERLINE HIGH 160 - 189 mg/dl HIGH >190 mg/dl VERY HIGH Performed By: #### C MP, MG, TSH, LIPID #### [facility] [address] [place] [address] Dr. Oneida Brady Triglyceride [Mass/Vol] 119 mg/dL Normal <=150 [facility] Comment on above: Performed By: #### C MP, MG, TSH, LIPID #### [facility] [address] [place] [address] Dr. Oneida Brady VLDL CALC 23.8 mg/dL Normal [facility] Comment on above: Performed By: #### C MP, MG, TSH, LIPID #### [facility] [address] [place] [address] Dr. Oneida Brady MAGNESIUMon 10-01-2021 Magnesium [Mass/Vol] 2.1 mg/dL Normal 1.8-2.4 [facility] Comment on above: Performed By: #### C MP, MG, TSH, LIPID #### [facility] [address] [place] [address] Dr. Oneida Brady PROF 14(COMP METB)on 022 Albumin [Mass/Vol] 4.3 g/dL Normal 3.4-5.0 [facility] Comment on above: Performed By: #### C MP, MG, TSH, LIPID #### [facility] [address] [place] [address] Dr. Oneida Brady Albumin/Globulin [Mass ratio] 1.1 {ratio} Normal [facility] Comment on above: Performed By: #### C MP, MG, TSH, LIPID #### [facility] [address] [place] [address] Dr. Oneida Brady ALP [Catalytic activity/Vol] 88 U/L Normal 46-116 [facility] Comment on above: Performed By: #### C MP, MG, TSH, LIPID #### [facility] [address] [place] [address] Dr. Oneida Brady ALT [Catalytic activity/Vol] 21 U/L Normal 14-59 [facility] Comment on above: Performed By: #### C MP, MG, TSH, LIPID #### [facility] [address] [place] [address] Dr. Oneida Brady Anion gap [Moles/Vol] 16.0 mmol/L Normal [facility] Comment on above: Performed By: #### C MP, MG, TSH, LIPID #### [facility] [address] [address] [address] Oneida Brady AST [Catalytic activity/Vol] 18 U/L Normal 15-37 [facility] Comment on above: Performed By: #### C MP, MG, TSH, LIPID #### [facility] [address] [address] [address] Oneida Brady Bilirubin [Mass/Vol] 0.6 mg/dL Normal 0.2-1.0 [facility] Comment on above: Performed By: #### C MP, MG, TSH, LIPID #### [facility] [address] [place] [address] Dr. Oneida Brady Calcium [Mass/Vol] 9.6 mg/dL Normal 8.5-10.1 [facility] Comment on above: Performed By: #### C MP, MG, TSH, LIPID #### [facility] [address] [place] [address] Dr. Oneida Brady Chloride [Moles/Vol] 104 mmol/L Normal 98-107 [facility] Comment on above: Performed By: #### C MP, MG, TSH, LIPID #### [facility] [address] [place] [address] Dr. Oneida Brady CO2 [Moles/Vol] 24.7 mmol/L Normal 21.0-32.0 [facility] Comment on above: Performed By: #### C MP, MG, TSH, LIPID #### [facility] [address] [place] [address] Dr. Oneida Brady Creatinine [Mass/Vol] 1.51 mg/dL Critically high 0.55-1.02 [facility] Comment on above: Performed By: #### C MP, MG, TSH, LIPID #### [facility] [address] [place] [address] Dr. Oneida Brady EGFR-AF BELARUSIAN 41 mL/min/1.73m2 Critically low >=60 [facility] Comment on above: Performed By: #### C MP, MG, TSH, LIPID #### [facility] [address] [address] [address] Oneida Brady EGFR-NON AF BELARUSIAN 34 mL/min/1.73m2 Critically low >=60 [facility] Comment on above: Performed By: #### C MP, MG, TSH, LIPID #### [facility] [address] [place] [address] Dr. Oneida Brady Globulin (S) [Mass/Vol] 3.8 g/dL Normal [facility] Comment on above: Performed By: #### C MP, MG, TSH, LIPID #### [facility] [address] [place] [address] Dr. Oneida Brady Glucose [Mass/Vol] 108 mg/dL Critically high 74-106 [facility] Comment on above: Performed By: #### C MP, MG, TSH, LIPID #### [facility] [address] [place] [address] Dr. Oneida Brady Potassium [Moles/Vol] 3.7 mmol/L Normal 3.5-5.1 [facility] Comment on above: Performed By: #### C MP, MG, TSH, LIPID #### [facility] [address] [place] [address] Dr. Oneida Brady Protein [Mass/Vol] 8.1 g/dL Normal 6.4-8.2 [facility] Comment on above: Performed By: #### C MP, MG, TSH, LIPID #### [facility] [address] [place] [address] Dr. Oneida Brady Sodium [Moles/Vol] 141 mmol/L Normal 136-145 [facility] Comment on above: Performed By: #### C MP, MG, TSH, LIPID #### [facility] [address] [place] [address] Dr. Oneida Brady Urea nitrogen [Mass/Vol] 28.0 mg/dL Critically high 7.0-18.0 [facility] Comment on above: Performed By: #### C MP, MG, TSH, LIPID #### [facility] [address] [place] [address] Dr. Oneida Brady Urea nitrogen/Creatinine [Mass ratio] 18.5 mg/mg Normal [facility] Comment on above: Performed By: #### C MP, MG, TSH, LIPID #### [facility] [address] [place], [place] [address] Dr. Oneida Brady TSHon 10-01-2021 TSH 2.642 uIU/mL Normal 0.358-3.740 [facility] Comment on above: Performed By: #### C MP, MG, TSH, LIPID #### [facility] [address] [place], [place] [address] Dr. Oneida Brady XR CHEST 2 Von [...] SHIRA SCHMIDT Date: 2021-10-01 08:29 Normal [facility] Basic Metabolic PanelOrdered By: Bladimir Salguero on 10-12-2020 Anion gap [Moles/Vol] 12 mmol/L 9 - 17 mmol/L [employer] Phone: Calcium [Mass/Vol] 9.9 mg/dL 8.6 - 10. 4 mg/dL [employer] Phone: Chloride [Moles/Vol] 104 mmol/L 98 - 107 mmol/L [employer] Phone: CO2 [Moles/Vol] 22 mmol/L 20 - 31 mmol/L [employer] Phone: Creatinine [Mass/Vol] 1.24 mg/dL High 0.50 - 0.90 mg/dL [employer] Phone: GFR 51 mL/min Low >60 [employer] Phone: GFR Non- 42 mL/min Low >60 [facility]: GFR/1.73 sq M.predicted MDRD (S/P/Bld) [Vol rate/Area] [facility] Phone: Comment on above: Average GFR for 70 o r more years old: 75 mL/min/1.73sq m Chronic Kidney Disease: <60 mL/min/1.73sq m Kidney failure: <15 mL/min/1.73sq m eGFR calculated using average adult body mass. Additional eGFR calculator available at: http://www.MyTennisLessons/[employer] Mobile_crcl_2012.htm GFR/1.73 sq M.predicted MDRD (S/P/Bld) [Vol rate/Area] NOT REPORTED [facility] Phone: Glucose [Mass/Vol] 130 mg/dL High 70 - 99 mg/dL [facility] [employer] Phone: Interpretation and review of laboratory results Abnormal [facility] Phone: Potassium [Moles/Vol] 3.7 mmol/L 3.7 - 5.3 mmol/L [facility] Phone: Sodium [Moles/Vol] 138 mmol/L 135 - 144 mmol/L [facility] Phone: Urea nitrogen (BldV) [Mass/Vol] 23 mg/dL 8 - 23 mg/dL [facility] Phone: Urea nitrogen/Creatinine (Bld) [Mass ratio] 19 [facility] Phone: [facility] Phone: Basic Metabolic Profon 10-12 (cont.) Normal [facility] Comment on above: Result Comment: Aver age GFR for 70 or more years old: 75 mL/min/1.73sq m Chronic Kidney Disease: <60 mL/min/1.73sq m Kidney failure: <15 mL/min/1.73sq m eGFR calculated using average adult body mass. Additional eGFR calculator available at: http://www.Websense.10seconds Software/multiple_crcl_2012.htm Performed By: #### B MP #### [facility] [address] [place], [place] [id number] Pouncer: Shira De Oliveira MD Anion gap [Moles/Vol] 12 mmol/L Normal 9-17 [facility] Comment on above: Performed By: #### B MP #### [facility] [address] [place] [address] Pouncer: Shira De Oliveira MD BUN/CRE Ratio 19 Normal 9-20 [facility] Comment on above: Performed By: #### B MP #### [facility] [address] [place], [place] [id number] Pouncer: Shira De Oliveira MD Calcium [Mass/Vol] 9.9 mg/dL Normal 8.6-10.4 [facility] Comment on above: Performed By: #### B MP #### [facility] [address] [place] [address] Pouncer: Shira De Oliveira MD Chloride [Moles/Vol] 104 mmol/L Normal 98-107 [facility] Comment on above: Performed By: #### B MP #### [facility] [address] [place] [address] Pouncer: Shira De Oliveira MD CO2 [Moles/Vol] 22 mmol/L Normal 20-31 [facility] Comment on above: Performed By: #### B MP #### [facility] [address] [place], [place] [id number] Pouncer: Shira De Oliveira MD Creatinine [Mass/Vol] 1.24 mg/dL High 0.50-0.90 [facility] Comment on above: Performed By: #### B MP #### [facility] [address] [place], [place] [id number] Pouncer: Shira De Oliveira MD GFR, Amer 51 mL/min Low >60 [facility] Comment on above: Performed By: #### B MP #### [facility] [address] [place], [place] [id number] Pouncer: Shira De Oliveira MD GFR,non Amer 42 mL/min Low >60 [facility] Comment on above: Performed By: #### B MP #### [facility] [address] [place] [address] Pouncer: Shira De Oliveira MD Glucose [Mass/Vol] 130 mg/dL High 70-99 [facility] Comment on above: Performed By: #### B MP #### [facility] [address] [place], [place] [id number] Pouncer: Shira De Oliveira MD Potassium [Moles/Vol] 3.7 mmol/L Normal 3.7-5.3 [facility] Comment on above: Performed By: #### B MP #### [facility] [address] [place], [place] [id number] Pouncer: Shira De Oliveira MD Sodium [Moles/Vol] 138 mmol/L Normal 135-144 [facility] Comment on above: Performed By: #### B MP #### [facility] [address] [place] [address] Pouncer: Shira De Oliveira MD Urea nitrogen [Mass/Vol] 23 mg/dL Normal 8-23 [facility] Comment on above: Performed By: #### B MP #### [facility] [address] [place], [place] [id number] Pouncer: Shira De Oliveira MD Staging: NOT REPORTED Normal [facility] Comment on above: Performed By: #### B MP #### [facility] [address] [facility] [place] [address] Pouncer: Shira De Oliveira MD ELBOW RIGHT 3 [facility] 08-31-19 21 ELBOW RIGHT 3 [facility] Department of Radiology [address] [place] [phone] Patient Name: ASHANTI QUINTERO : 1945 Sex: F Age: Race: White Pt. 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 Ortho follow up. COMPARISON: 06/26/2020. IMPRESSION: 1. Right radial head prosthesis and surgical fixation of the ulna. Ulnar fracture demonstrates no progressive bridging. Surgical material identified with wire in the anterior subcutaneous tissues. 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 No effusion. Anatomic alignment. Electronically signed: Guillermina Gomez. Transcribed by: [email or web address], User Resident: Electronically Signed by: GUILLERMINA GOMEZ @ 08/30/2020 03:30 PM Normal [facility] Comment on above: Order Comment: Evalu ate ELBOW RIGHT 3 [facility] 06-27-19 21 ELBOW RIGHT 3 [facility] Department of Radiology [address] [place] [phone] Patient Name: ASHANTI QUINTERO : 1945 Sex: F Age: Race: White Pt. 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 Transcribed by: [email or web address], User Resident: Electronically Signed by: DEANN HANSEN @ 06/26/2020 01:09 PM Normal [facility] Comment on above: Order Comment: evalu ate ELBOW RIGHT 3 [facility] 05-02-19 21 ELBOW RIGHT 3 [facility] Department of Radiology [address] [place] [phone] Patient Name: ASHANTI QUINTERO : 1945 Sex: F Age: Race: White Pt. 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 COMPARISON: 03/20/2020. IMPRESSION: 1. Radial prosthesis with plate and screw fixation of the ulna. Anatomic alignment. Improved soft tissue swelling. No elbow joint effusion. Electronically signed: Guillermina Gomez. Transcribed by: [email or web address], User Resident: Electronically Signed by: GUILLERMINA GOMEZ @ 05/01/2020 01:32 PM Normal [facility] Comment on above: Order Comment: evalu ate ELBOW RIGHT 3 [facility] 03-20-19 21 ELBOW RIGHT 3 [facility] Department of Radiology [address] [place] [phone] Patient Name: ASHANTI QUINTERO : 1945 Sex: F Age: Race: White Pt. Location: Patient Status: O Ordered Date: 03/20/2020 12:30:00 PM Completed Date: 03/20/2020 12:32 PM Requesting Provider: SARAHI JARAMILLO Attending Provider: SARAHI JARAMILLO Report Copy To: Signs & Symptoms: M25.521 Pain in right elbow I10 History: Noemy Comments: Evaluate Exam: ELBOW RIGHT 3 [facility] ELBOW RIGHT 3 [facility] 03/20/2020 12:32 PM CLINICAL INDICATIONS: M25.521 Pain [...] complication Electronically signed: Deann Hansen. Transcribed by: [email or web address], User Resident: Electronically Signed by: DEANN HANSEN @ 03/20/2020 12:50 PM Normal [facility] Comment on above: Order Comment: Evalu ate ELBOW RIGHT 3 [facility] 02-14-20 20 ELBOW RIGHT 3 [facility] Department of Radiology [address] [place] [phone] Patient Name: ASHANTI QUINTERO : 1945 Sex: F Age: Race: White Pt. Location: 85 Patient Status: D Ordered Date: 02/14/2020 1:25:00 PM Completed Date: 02/14/2020 01:27 PM Requesting Provider: SARAHI JARAMILLO Attending Provider: Report Copy To: Signs & Symptoms: M25.521 Pain in right elbow I10 History: [place] Comments: Evaluate Exam: ELBOW RIGHT 3 [facility] ELBOW RIGHT 3 [facility] 02/14/2020 1:27 PM CLINICAL INDICATIONS: M25.521 Pain [...] process. Electronically signed: Lalo Yanes. Transcribed by: [email or web address], User Resident: Electronically Signed by: LALO YANES @ 02/15/2020 12:37 PM Normal [facility] Comment on above: Order Comment: Evalu ate ELBOW RIGHT 3 [facility] 01-17-20 20 ELBOW RIGHT 3 [facility] Department of Radiology [address] [place] [phone] Patient Name: ASHANTI QUINTERO : 1945 [...] fracture. Electronically signed: Bryn Tompkins. Transcribed by: [email or web address], User Resident: Electronically Signed by: BRYN TOMPKINS @ 01/17/2020 10:28 AM [place] [facility] Comment on above: Order Comment: #1 rt -ulna BASIC METABOLIC PANELon 11-0 Calcium [Mass/Vol] 9.4 mg/dL Normal 8.6-10.3 [facility] Comment on above: Order Comment: #1 rt -ulna Performed By: #### 3 0338 #### [facility] [address] [place] [address], [place] Chloride [Moles/Vol] 98 mmol/L Normal 98-107 [facility] Comment on above: Order Comment: #1 rt -ulna Performed By: #### 3 0338 #### [facility] [address] [place] [address], [place] CO2 [Moles/Vol] 27 mmol/L Normal 21-31 [facility] Comment on above: Order Comment: #1 rt -ulna Performed By: #### 3 0338 #### [facility] [address] [place] [address], [place] Creatinine [Mass/Vol] 1.16 mg/dL Normal 0.60-1.20 [facility] Comment on above: Order Comment: #1 rt -ulna Performed By: #### 3 0338 #### [facility] [address] [place] [address], [facility] eGFR- 56 ml/min/1.73sq m Abnormal >60 [facility] Comment on above: Order Comment: #1 rt -ulna Result Comment: Calc ulation may not be valid for patients over 70 years Performed By: #### 3 0338 #### [facility] [address] [place] [address], [facility] eGFR- non- 46 ml/min/1.73sq m Abnormal >60 [facility] Comment on above: Order Comment: #1 rt -ulna Result Comment: Calc ulation may not be valid for patients over 70 years Performed By: #### 3 0338 #### [facility] [address] Glucose [Mass/Vol] 142 mg/dL High 70-100 [facility] Comment on above: Order Comment: #1 rt -ulna Performed By: #### 3 0338 #### [facility] [address] [place] [address], [facility] Potassium [Moles/Vol] 3.9 mmol/L Normal 3.5-5.1 [facility] Comment on above: Order Comment: #1 rt -ulna Performed By: #### 3 0338 #### [facility] [address] [facility] [address] Sodium [Moles/Vol] 132 mmol/L Low 136-145 [facility] Comment on above: Order Comment: #1 rt -ulna Performed By: #### 3 0338 #### [facility] [address] [facility] [address] Urea nitrogen [Mass/Vol] 22 mg/dL Normal 7-25 [facility] Comment on above: Order Comment: #1 rt -ulna Performed By: #### 3 0338 #### [facility] [address] [facility] [place] [address], [facility] CBC W/DIFFon 12-29-2019 ABS IMM GRANS 0.1 10*3/uL Normal 0.0-0.2 [facility] Comment on above: Order Comment: No: D o not add to previous draw Performed By: #### 5 0103 #### [facility] [address] [facility] [place] [address], [facility] ABS NEUTROPHILS 9.6 10*3/uL High 1.6-7.6 [facility] Comment on above: Order Comment: No: D o not add to previous draw Performed By: #### 5 0103 #### [facility] [address] [place] [address], [facility] Basophils (Bld) [#/Vol] 0.0 10*3/uL Normal 0.0-0.2 [facility] Comment on above: Order Comment: No: D o not add to previous draw Performed By: #### 5 0103 #### [facility] [address] [place] [address], [facility] Basophils/100 WBC (Bld) 0.2 % Normal 0.0-1.0 [facility] Comment on above: Order Comment: No: D o not add to previous draw Performed By: #### 5 0103 #### [facility] [facility] [address] [place] [address], [place] Eosinophils (Bld) [#/Vol] 0.0 10*3/uL Normal 0.0-0.5 [facility] Comment on above: Order Comment: No: D o not add to previous draw Performed By: #### 5 0103 #### [facility] [address] [place] [address], [facility] Eosinophils/100 WBC (Bld) 0.1 % Normal 0.0-6.0 [facility] Comment on above: Order Comment: No: D o not add to previous draw Performed By: #### 5 0103 #### [facility] [address] [place] [address], [facility] Erythrocyte distribution width (RBC) [Ratio] 13.7 % Normal 11.5-15.0 [facility] Comment on above: Order Comment: No: D o not add to previous draw Performed By: #### 5 0103 #### [facility] [address] [place] [address], [place] Hematocrit (Bld) [Volume fraction] 33.7 % Low 36.0-45.0 [facility] Comment on above: Order Comment: No: D o not add to previous draw Performed By: #### 5 0103 #### [facility] [address] [place] [address], [facility] Hemoglobin (Bld) [Mass/Vol] 10.7 g/dL Low 12.0-15.0 [facility] Comment on above: Order Comment: No: D o not add to previous draw Performed By: #### 5 0103 #### [facility] [address] [place] [address], [facility] IMMATURE GRANS 0.5 % Normal 0.0-1.0 [facility] Comment on above: Order Comment: No: D o not add to previous draw Performed By: #### 5 0103 #### [facility] [address] [place] [id number], [facility] Lymphocytes (Bld) [#/Vol] 1.4 10*3/uL Normal 1.2-4.0 [facility] Comment on above: Order Comment: No: D o not add to previous draw Performed By: #### 5 0103 #### [facility] [address] [facility] [place] [id number], [facility] Lymphocytes/100 WBC (Bld) 11.0 % Low 20.0-45.0 [facility] Comment on above: Order Comment: No: D o not add to previous draw Performed By: #### 5 0103 #### [facility] [address] [facility] [place] [id number], [facility] MCH (RBC) [Entitic mass] 28.4 pg Normal 27.0-33.0 [facility] Comment on above: Order Comment: No: D o not add to previous draw Performed By: #### 5 0103 #### [facility] [address] [facility] [place] [address], [facility] MCHC (RBC) [Mass/Vol] 31.8 g/dL Low 32.0-35.0 [facility] Comment on above: Order Comment: No: D o not add to previous draw Performed By: #### 5 0103 #### [facility] [address] [place] [id number], [facility] MCV (RBC) [Entitic vol] 89.4 fL Normal 82.0-98.0 [facility] Comment on above: Order Comment: No: D o not add to previous draw Performed By: #### 5 0103 #### [facility] [address] [place] [id number], [facility] Monocytes (Bld) [#/Vol] 1.7 10*3/uL High 0.1-1.0 [facility] Comment on above: Order Comment: No: D o not add to previous draw Performed By: #### 5 0103 #### [facility] [address] [place] [address], [facility] MONOS 13.3 % High 5.0-12.0 [facility] Comment on above: Order Comment: No: D o not add to previous draw Performed By: #### 5 0103 #### [facility] [address] [place] [id number], [facility] Neutrophils/100 WBC (Bld) 74.9 % High 40.0-72.0 [facility] Comment on above: Order Comment: No: D o not add to previous draw Performed By: #### 5 0103 #### [facility] [address] [facility] [place] [address], [facility] Nucleated RBC/100 WBC (Bld) [Ratio] 0 % Normal 0-0 [facility] Comment on above: Order Comment: No: D o not add to previous draw Performed By: #### 5 0103 #### [facility] [address] [place] [address], [place] PLAT CNT 299 10*3/uL Normal 150-400 The [facility] Comment on above: Order Comment: No: D o not add to previous draw Performed By: #### 5 0103 #### [facility] [address] [place] [address], [facility] RBC (Bld) [#/Vol] 3.77 10*6/uL Low 3.80-5.00 The [facility] Comment on above: Order Comment: No: D o not add to previous draw Performed By: #### 5 0103 #### [facility] [address] WBC (Bld) [#/Vol] 12.86 10*3/uL High 4.00-10.60 [facility] Comment on above: Order Comment: No: D o not add to previous draw Performed By: #### 5 0103 #### [facility] [address] Operative Reporton 0 Operative Report MR#: [id number] [facility] Pt. Name: Ashanti Quintero Room #: [id number] Discharge Date: Birthdate: 1945 OPERATIVE REPORT DATE [...] plate with associated locking and nonlocking screws, [facility] radial head replacement, 6.5 mm +4 stem, [...] nonun (more content not included)... Normal [facility] *ANAEROBIC CULTUREon 020 *ANAEROBIC CULTURE Clinical Report: (D) Specimen/Source: SWAB/INTRAOP SPEC Collected: 12/28/2019 11:09 Status: Final Last Updated: 01/02/2020 10:30 (1) #2 rt-elbow CULT RES (Final) No Anaerobes Isolated 5 Days Normal [facility] Comment on above: Order Comment: #2 rt -elbow Performed By: #### 5 0103 #### [facility] [address] *ANAEROBIC CULTURE Clinical Report: (D) Specimen/Source: SWAB/INTRAOP SPEC Collected: 12/28/2019 09:55 Status: Final Last Updated: 01/02/2020 10:30 (1) #1 rt-ulna CULT RES (Final) No Anaerobes Isolated 5 Days Normal [facility] Comment on above: Order Comment: #1 rt -ulna Performed By: #### 3 0312 #### [facility] [address] *TISSUE CULTUREon 12-28-2019 *TISSUE CULTURE Clinical Report: (D) Specimen/Source: TISSUE/INTRAOP SPEC Collected: 12/28/2019 09:55 Status: Final Last Updated: 01/02/2020 06:29 (1) #1 rt-ulna GRAM (Final) Few Polys No Bacteria Seen CULT RES (Final) No Growth Day [address] [facility] Comment on above: Order Comment: #1 rt -ulna Performed By: #### 3 0338 #### [address] *WOUND CULTUREon 12-28-2019 *WOUND CULTURE Clinical Report: (D) Specimen/Source: WOUND/INTRAOP SPEC Collected: 12/28/2019 11:09 Status: Final Last Updated: 01/02/2020 06:29 (1) #2 rt-elbow GRAM (Final) Rare Polys No Bacteria Seen CULT RES (Final) No Growth Day 5 Normal [facility] Comment on above: Order Comment: #2 rt -elbow Performed By: #### 3 0343 #### [address] ELBOW RIGHT 2 [facility] 12-28-19 20 ELBOW RIGHT 2 [facility] Department of Radiology [address] [place] [id number] Patient Name: ASHANTI QUINTERO : 1945 [...] POSS BONE BIOPSY Exam: ELBOW RIGHT 2 [facility] ELBOW RIGHT 2 VWS 12/28/2019 12:05 PM CLINICAL INDICATIONS: REVISION ORIF RIGHT ELBOW(RADIUS AND ULNA), ICBG, POSS RADIAL HEAD REPLACEMENT, POSS BONE BIOPSY TECHNOLOGIST COMMENTS: Dr Oneill used 43 seconds of fluoro time for orif revision of right elbow zayas c-arm in 0910 out 1205 QUESTION FOR THE RADIOLOGIST: REVISION ORIF RIGHT [...] are obtained for documentation purposes Electronically signed: Medhat Govea. Transcribed by: [email or web address], User Resident: Electronically Signed by: MEDHAT GOVEA @ 12/28/2019 02:[address] [facility] Comment on above: Order Comment: #1 rt -ulna POC GLUCOSE LABon 12-28-2019 Glucose [Mass/Vol] 105 mg/dL High 70-100 The [facility] Comment on above: Performed By: #### 8 [id number] #### [facility] [address] *MRSA/MSSA CULTUREon 020 *MRSA/MSSA CULTURE Clinical Report: (D) Specimen/Source: NASAL SWAB/NARES Collected: 12/25/2019 09:40 Status: Final Last Updated: 12/26/2019 10:11 ISO (Final) No Methicillin Resistant Staphylococcus aureus Isolated (MRSA) ISO (Final) No Methicillin Sensitive Staphylococcus aureus Isolated (MSSA) Normal [facility] Comment on above: Performed By: #### 5 0103 #### [facility] [address] [facility]. [address] *SARS-CoV-2 COVID-19on 12-24 SARS-CoV-2 (COVID-19) RNA MICHAELLE+probe Ql (Unsp spec) Not detected Normal Not Detected [facility] Comment on above: Order Comment: The A ptima SARS-CoV-2 assay is a nucleic acid amplification test intended for the qualitative detection of RNA from SARS-CoV-2 isolated and purified from nasopharyngeal (AREA SAFETY MANAGER),oropharyngeal (OP), nasal swab, sputum, and bronchoalveolar lavage (BAL) specimens from patients with signs and symptoms of infection who are suspected of COVID-19. Results are for the identification of SARS-CoV-2 RNA. The SARS-CoV-2 RNA is generally detectable during the acute phase of infection. The Aptima SARS-CoV-2 Assay on the [employer] system is intended for use by laboratory personnel specifically instructed and trained in the operation of the [employer] and [employer] system. The Aptima SARS-CoV-2 assay is [...] information. Performed By: #### 3 1792 #### [facility] [address] [facility]. [address] APTTon 12-25-2019 aPTT Coag (Bld) [Time] 38.6 s High 25.0-35.0 [facility] Comment on above: Result Comment: ALL RESULTS [...] PURPOSE. Performed By: #### 3 0338 #### [facility] [address] [place] [address], [facility] BASIC METABOLIC PANELon 10-3 Calcium [Mass/Vol] 10.0 mg/dL Normal 8.6-10.3 The [facility] Comment on above: Performed By: #### 0 0071 #### [facility] [address] [place] [address], [place] Chloride [Moles/Vol] 102 mmol/L Normal 98-107 [facility] Comment on above: Performed By: #### 0 0071 #### [facility] [address] [place] [address], [place] CO2 [Moles/Vol] 27 mmol/L Normal 21-31 The [facility] Comment on above: Performed By: #### 0 0071 #### [facility] [address] [place] [address], [place] Creatinine [Mass/Vol] 1.47 mg/dL High 0.60-1.20 [facility] Comment on above: Performed By: #### 0 0071 #### [facility] [address] [place] [address], [facility] eGFR- 42 ml/min/1.73sq m Abnormal >60 [facility] Comment on above: Result Comment: Calc ulation may not be valid for patients over 70 years Performed By: #### 0 0071 #### [facility] [address] [place] [address], [place] eGFR- non- 35 ml/min/1.73sq m Abnormal >60 [facility] Comment on above: Result Comment: Calc ulation may not be valid for patients over 70 years Performed By: #### 0 0071 #### [facility] [address] [place] [address], [place] Glucose [Mass/Vol] 113 mg/dL High 70-100 [facility] Comment on above: Performed By: #### 0 0071 #### [facility] [address] [place] [address], [facility] Potassium [Moles/Vol] 4.4 mmol/L Normal 3.5-5.1 [facility] Comment on above: Performed By: #### 0 1 #### [facility] [address] [place] [address], [facility] Sodium [Moles/Vol] 138 mmol/L Normal 136-145 [facility] Comment on above: Performed By: #### 0 1 #### [facility] [address] [facility] [place] [place] [address], [facility] Urea nitrogen [Mass/Vol] 30 mg/dL High 7-25 [facility] Comment on above: Performed By: #### 0 1 #### [facility] [address] [facility] [place] [place] [address], [facility] CBC W/DIFFon 12-25-2019 ABS IMM GRANS 0.1 10*3/uL Normal 0.0-0.2 [facility] Comment on above: Performed By: #### 5 102 #### [facility] [address] [facility] [place] [address], [facility] ABS NEUTROPHILS 5.3 10*3/uL Normal 1.6-7.6 The [facility] Comment on above: Performed By: #### 5 3 #### [facility] [address] [facility] [place] [address], [facility] Basophils (Bld) [#/Vol] 0.0 10*3/uL Normal 0.0-0.2 [facility] Comment on above: Performed By: #### 5 3 #### [facility] [address] [facility] [place] [address], [facility] Basophils/100 WBC (Bld) 0.4 % Normal 0.0-1.0 [facility] Comment on above: Performed By: #### 5 3 #### [facility] [address] [place] [address], [facility] Eosinophils (Bld) [#/Vol] 0.5 10*3/uL Normal 0.0-0.5 [facility] Comment on above: Performed By: #### 5 0103 #### [facility] [address] [facility] [place] [address], [facility] Eosinophils/100 WBC (Bld) 4.6 % Normal 0.0-6.0 [facility] Comment on above: Performed By: #### 5 0103 #### [facility] [address] Erythrocyte distribution width (RBC) [Ratio] 13.5 % Normal 11.5-15.0 [facility] Comment on above: Performed By: #### 3 #### [facility] [address] [facility]. [address] Hematocrit (Bld) [Volume fraction] 40.7 % Normal 36.0-45.0 [facility] Comment on above: Performed By: #### 5 3 #### [facility] [address] [facility]. [address] Hemoglobin (Bld) [Mass/Vol] 13.2 g/dL Normal 12.0-15.0 [facility] Comment on above: Performed By: #### 5 3 #### [facility] [address] IMMATURE GRANS 0.5 % Normal 0.0-1.0 [facility] Comment on above: Performed By: #### 3 #### [facility] [address] [place] [address], [facility] Lymphocytes (Bld) [#/Vol] 3.4 10*3/uL Normal 1.2-4.0 [facility] Comment on above: Performed By: #### 3 #### [facility] [address] [place] [address], [facility] Lymphocytes/100 WBC (Bld) 33.2 % Normal 20.0-45.0 [facility] Comment on above: Performed By: #### 3 #### [facility] [address] [place] [address], [facility] MCH (RBC) [Entitic mass] 29.1 pg Normal 27.0-33.0 [facility] Comment on above: Performed By: #### 3 #### [facility] [address] [facility] [place] [address], [facility] MCHC (RBC) [Mass/Vol] 32.4 g/dL Normal 32.0-35.0 [facility] Comment on above: Performed By: #### 3 #### [facility] [address] [facility] [place] [address], [facility] MCV (RBC) [Entitic vol] 89.6 fL Normal 82.0-98.0 [facility] Comment on above: Performed By: #### 3 #### [facility] [address] [facility] [place] [address], [facility] Monocytes (Bld) [#/Vol] 0.9 10*3/uL Normal 0.1-1.0 [facility] Comment on above: Performed By: #### 3 #### [facility] [address] [facility] [place] [address], [facility] MONOS 9.3 % Normal 5.0-12.0 [facility] Comment on above: Performed By: #### 3 #### [facility] [address] [facility] [place] [address], [facility] Neutrophils/100 WBC (Bld) 52.0 % Normal 40.0-72.0 [facility] Comment on above: Performed By: #### 5 3 #### [facility] [address] Nucleated RBC/100 WBC (Bld) [Ratio] 0 % Normal 0-0 [facility] Comment on above: Performed By: #### 5 0103 #### [facility] [address] [facility] [place] [address], [facility] PLAT CNT 399 10*3/uL Normal 150-400 [facility] Comment on above: Performed By: #### 5 0103 #### [facility] [address] [place] [address], [facility] RBC (Bld) [#/Vol] 4.54 10*6/uL Normal 3.80-5.[address] [facility] Comment on above: Performed By: #### 5 0103 #### [facility] [address] WBC (Bld) [#/Vol] 10.10 10*3/uL Normal 4.00-10.60 [facility] Comment on above: Performed By: #### 5 0103 #### [facility] [address] PROTHROMBIN TIMEon 0 INR Coag (PPP) [Relative time] 1.12 {INR} Normal 0.91-1.16 [facility] Comment on above: Result Comment: ACCC P RECOMMENDED INR FOR WARFARIN THERAPY ------ ------- CONDITION INR PROPHYLAXIS OF VENOUS THROMBOSIS 2-3 (HIGH-RISK SURGERY) TREATMENT OF VENOUS THROMBOSIS 2-3 TREATMENT OF PULMONARY EMBOLISM 2-3 PREVENTION OF SYSTEMIC EMBOLISM: 2-3 ACUTE MYOCARDIAL INFARCTION TISSUE HEART VALVES VALVULAR HEART DISEASE ATRIAL FIBRILLATION RECURRENT SYSTEMIC EMBOLISM MECHANICAL HEART VALVE 2.5-3.5 FROM: ORAL ANTICOAGULANTS. MECHANISM OF ACTION, CLINICAL EFFECTIVENESS, AND OPTIMAL THERAPEUTIC RANGE. CHEST 1995;108:231S-246S. Performed By: #### 3 0338 #### [address] PT Coag (PPP) [Time] 14.4 s Normal 12.3-14.8 [facility] Comment on above: Result Comment: ALL RESULTS MUST BE INTERPRETED WITH RESPECT TO BLOOD DRAWING ARTIFACT OR DILUTION ERROR OF ANTICOAGULANT AT THE TIME OF SAMPLING. Performed By: #### 3 0338 #### [facility] [address] [place], [place] [id number] [place] [address] ELBOW RIGHT 3 [facility] 12-23-19 ELBOW RIGHT 3 S [facility] Department of Radiology [address] [place] [phone] Patient Name: ASHANTI QUINTERO : 1945 Sex: F Age: Race: White Pt. Location: Patient Status: O Ordered Date: 12/23/2019 10:05:00 AM Completed Date: 12/23/2019 10:09 AM Requesting Provider: SARAHI JARAMILLO Attending Provider: SARAHI JRAAMILLO Report Copy To: Signs & Symptoms: M25.521 Pain in right elbow I10 History: Comments: Evaluate Exam: ELBOW RIGHT 3 VWS ELBOW RIGHT 3 VWS CLINICAL INFORMATION: ortho follow up rt elbow [...] osteopenia. Electronically signed: Guillermina Gomez. Transcribed by: [email or web address], User Resident: Electronically Signed by: GUILLERMINA GOMEZ @ 12/23/2019 10:48 AM Normal [facility] Comment on above: Order Comment: #1 rt -ulna C REACTIVE PROTEINon 020 CRP [Mass/Vol] 7.1 mg/L High 0.0-7.0 [facility] Comment on above: Performed By: #### 3 0338 #### [address] ELBOW RIGHT 3 VWSon 12-06-19 20 ELBOW RIGHT 3 VWS [facility] Department of Radiology [address] [place] [phone] Patient Name: ASHANTI QUINTERO : 1945 Sex: F Age: Race: White Pt. Location: Patient Status: O Ordered Date: 12/06/2019 10:15:00 AM Completed Date: 12/06/2019 10:16 AM Requesting Provider: SARAHI JARAMILLO Attending Provider: ELLA, SARAHI Report Copy To: DUSTY SOMMERS Signs & Symptoms: S52.121D Disp fx of head of r radius, subs for clos fx w routn heal I10 History: Noemy Comments: Views (X-RAY, ELBOW): AP, Lateral, Oblique Exam: ELBOW RIGHT 3 VWS ELBOW RIGHT 3 S 12/06/2019 10:16 AM CLINICAL INDICATIONS: S52.121D Disp [...] proximal ulna now evident. Electronically signed: Kevin Reveles. Transcribed by: [email or web address], User Resident: Electronically Signed by: KEVIN REVELES @ 12/06/2019 10:25 AM Normal [facility] Comment on above: Order Comment: #1 rt -ulna SEDIMENTATION RATEon 020 SED RATE 25 mm/hr High 0-20 [facility] Comment on above: Performed By: #### 3 0338 #### [place] [address], [facility] CT UPPER EXTREMITY WO CONTRA ST RIGHTon 12-03-2019 CT UPPER EXTREMITY WO CONTRAST RIGHT [facility] Department of Radiology [address] [place] [phone] Patient Name: ASHANTI QUINTERO : 1945 Sex: F Age: Race: White Pt. Location: 84 Patient Status: O Ordered Date: 11/09/2019 1:25:00 PM Completed Date: 12/03/2019 11:10 AM Requesting Provider: SARAHI JARAMILLO Attending Provider: SARAHI JARAMILLO Report Copy To: DUSTY SOMMERS Signs & Symptoms: S52.121D Disp fx of head of r radius, subs for clos fx w routn heal I10 History: [place], PHONE:[phone],* NEEDS ORTHO F/[place] [id number] per medicare passed med nec *er *daughter [...] fossa. Electronically signed: Patrick Jacinto. Transcribed by: [email or web address], User Resident: PATRICK JACINTO Electronically Signed by: PATRICK JACINTO @ 12/03/2019 12:11 PM I personally read this/these film(s) with this resident Normal [facility] Comment on above: Order Comment: #1 rt -ulna ELBOW RIGHT 3 [facility] 11-09-19 ELBOW RIGHT 3 [facility] Department of Radiology [address] [place] [phone] Patient Name: ASHANTI QUINTERO : 1945 Sex: F Age: Race: White Pt. Location: Patient Status: Ordered Date: 11/09/2019 11:05:00 AM Completed Date: 11/09/2019 11:10 AM Requesting Provider: SARAHI JARAMILLO Attending Provider: Report Copy To: Signs & Symptoms: M25.521 Pain in right elbow I10 History: [place] Comments: Evaluate Exam: ELBOW RIGHT 3 [facility] ELBOW RIGHT 3 VWS 11/09/2019 11:10 AM CLINICAL INDICATIONS: M25.521 Pain [...] sites. Electronically signed: Jimmy Steiner. Transcribed by: [email or web address], User Resident: JIMMY STEINER Electronically Signed by: JIMMY STEINER @ 11/09/2019 11:15 AM I personally read this/these film(s) with this resident Normal [facility] Comment on above: Order Comment: Evalu ate Vital Signs Date Time Vital Sign Value Performing Clinician Facility 04-15-2024 10:03-0500 Body height 167.6 cm Dusty Sommers MD Work Phone: [facility] 04-15-2024 10:03-0500 Body mass index (BMI) [Ratio] 30.34 kg/m2 Dusty Sommers MD Work Phone: [facility] 04-15-2024 10:03-0500 Body weight 85.28 kg Dusty Sommers MD Work Phone: [facility] 04-15-2024 10:03-0500 Diastolic blood pressure 72 mm[Hg] Dusty Sommers MD Work Phone: [facility] 04-15-2024 10:03-0500 Heart rate 72 /min Dusty Sommers MD Work Phone: [facility] 04-15-2024 10:03-0500 SaO2% (BldA) [Mass fraction] 98 % Dusty Sommers MD Work Phone: [facility] 04-15-2024 10:03-0500 Systolic blood pressure 122 mm[Hg] Dusty Sommers MD Work Phone: [facility] 10-20-2023 09:51-0400 Body height 167.6 cm Dusty Sommers MD Work Phone: [facility] 10-20-2023 09:51-0400 Body mass index (BMI) [Ratio] 30.42 kg/m2 Dusty Sommers MD Work Phone: [facility] 10-20-2023 09:51-0400 Body weight 85.5 kg Dusty Sommers MD Work Phone: [facility] 10-20-2023 09:51-0400 Diastolic blood pressure 70 mm[Hg] Dusty Sommers MD Work Phone: [facility] 10-20-2023 09:51-0400 Heart rate 97 /min Dusty Sommers MD Work Phone: [facility] 10-20-2023 09:51-0400 SaO2% (BldA) [Mass fraction] 98 % Dusty Sommers MD Work Phone: [facility] 10-20-2023 09:51-0400 Systolic blood pressure 124 mm[Hg] Dusty Sommers MD Work Phone: [facility] 09-27-2019 11:19-0400 BP Diastolic 79 mm[Hg] [facility] [place] 09-27-2019 11:19-0400 BP Systolic 125 mm[Hg] [facility] [place] 09-27-2019 11:19-0400 Pulse (Heart Rate) 58 /min [facility] 09-27-2019 11:19-0400 Pulse Oximetry 97 % [facility] [place] 09-27-2019 11:19-0400 Respiratory Rate 13 /min [facility] [place] Encounters Encounter Date Encounter Type Care Provider Facility Start: 05-03-2024 End: 05-03-2024 ambulatory DUSTY SOMMERS Not Available Start: 04-15-2024 End: 04-15-2024 Bamboo flowsheet Dusty Sommers MD Work Phone: [facility] Start: 04-15-2024 End: 04-15-2024 Bamboo flowsheet Dusty Sommers MD Work Phone: [facility] Start: 04-15-2024 End: 04-15-2024 ambulatory DUSTY SOMMERS Not Available Start: 04-15-2024 End: 04-15-2024 Office outpatient visit 25 minutes Dusty Sommers MD Work Phone: [facility] Comment on above: Primary hypertension (CMS/HCC); Hypertensive nephropathy (CMS/HCC); Stage 4 chronic kidney disease (CMS/HCC); Longstanding persistent atrial fibrillation (CMS/HCC); 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; Mixed dyslipidemia (CMS/HCC); Polypharmacy Start: 03-08-2024 End: 03-09-2024 Refill Dusty Sommers MD Work Phone: [facility] Comment on above: Primary hypertension (CMS/HCC); Mixed dyslipidemia (CMS/HCC); Longstanding persistent atrial fibrillation (CMS/HCC) Start: 10-20-2023 End: 10-20-2023 Bamboo flowsheet Dusty Sommers MD Work Phone: [facility] Start: 10-20-2023 End: 10-20-2023 Bamboo flowsheet Dusty Sommers MD Work Phone: [facility] Start: 10-20-2023 End: 10-20-2023 Office outpatient visit 25 minutes Dusty Sommers MD Work Phone: [facility] Comment on above: Primary hypertension (CMS/HCC) (Primary Dx); Hypertensive nephropathy (CMS/HCC); Stage 4 chronic kidney disease (CMS/HCC); Longstanding persistent atrial fibrillation (CMS/HCC); Mixed dyslipidemia (CMS/HCC); Overweight Start: 10-20-2023 End: 10-20-2023 ambulatory DUSTY SOMMERS Not Available Start: 05-28-2023 End: 05-28-2023 ambulatory ERICK FERRIS Not Available Start: 10-01-2021 End: 10-01-2021 ambulatory BLADIMIR SALGUERO Facility: Start: 10-12-2020 End: 10-13-2020 ambulatory [facility] Start: 10-12-2020 End: 10-12-2020 Subsequent hospital visit by physician Dusty Sommers MD Work Phone: [facility] Comment on above: Atrial fibrillation, new onset (HCC) Start: 05-01-2020 End: 05-02-2020 ambulatory DUSTY SMOMERS Facility:[facility] Start: 01-17-2020 End: 01-18-2020 ambulatory SARAHI JARAMILLO Facility:[facility] Start: 12-28-2019 End: 12-29-2019 ambulatory ROBERTO CARLOS EBHEIM Facility:[facility] Start: 12-23-2019 End: 12-24-2019 ambulatory SARAHI KELLYO Facility:[facility] Start: 12-03-2019 End: 12-04-2019 ambulatory SARAHI KELLYO Facility:[facility] Start: 09-27-2019 End: 09-27-2019 Subsequent hospital visit by physician [facility] Comment on above: Atrial fibrillation, new onset (HCC) Start: 09-07-2019 End: 09-07-2019 Subsequent hospital visit by physician [facility] Karen Mccormack [facility] Comment on above: Abnormal EKG; Atrial fibrillation, unspecified type (HCC); History of cardiac murmur Procedures Date Procedure Procedure Detail Performing Clinician Start: 09-17-2022 H/O: hysterectomy History of hysterectomy Dusty Cruz Work Phone: Start: 10-12-2020 Basic metabolic panel calcium total Bladimir Salguero MD Work Phone: Start: 12-28-2019 ANESTH UPPER ARM SURGERY ROBERTO CARLOS EBRAHEIM Start: 12-28-2019 REPAIR/GRAFT RADIUS OR ULNA ROBERTO CARLOS EBRAHEIM Start: 12-28-2019 TREAT RADIUS FRACTURE ROBERTO CARLOS EBRAHEIM Start: 09-27-2019 End: 09-27-2019 Ecg routine ecg w/least 12 lds w/i&r Bladimir Salguero Work Phone: Plan of Treatment Date Care Activity Detail Author Start: 10-05-2024 End: 10-05-2024 Patient encounter procedure 10/05/2024 10:00 AM EDT Office Visit [facility] [address] [facility] [place] [address] Dusty Sommers MD [address] [place] [address] [facility] Start: 09-12-2024 End: 04-15-2025 Basic metabolic 1998 panel - Serum or Plasma Basic metabolic panel Lab Routine Primary hypertension (CMS/HCC) Stage 4 chronic kidney disease (CMS/HCC) Expected: 09/12/2024, Expires: 04/15/2025 [facility] Work Phone: Comment on above: Expected: 09/12/2024 , Expires: 04/15/2025 Start: 05-03-2024 End: 05-03-2024 Patient encounter procedure 05/03/2024 9:30 AM EDT Office Visit [facility] [address] [place] [address] Dusty Sommers MD [address] [place] [address] [facility] Start: 04-15-2024 End: 04-15-2024 Patient encounter procedure [facility] Start: 03-21-2024 End: 10-19-2024 Basic metabolic 1998 panel - Serum or Plasma Basic metabolic panel Lab Routine Primary hypertension (CMS/HCC) Stage 4 chronic kidney disease (CMS/HCC) Expected: 03/21/2024, Expires: 10/19/2024 [facility] Comment on above: Expected: 03/21/2024 , Expires: 10/19/2024 Start: 03-21-2024 End: 10-19-2024 CBC W Auto Differential panel - Blood CBC and differential Lab Routine Stage 4 chronic kidney disease (CMS/HCC) Expected: 03/21/2024, Expires: 10/19/2024 [facility] Work Phone: Comment on above: Expected: 03/21/2024 , Expires: 10/19/2024 Start: 10-26-2023 Influenza vaccination Influenza Vacc ine (#1) [facility] Start: 10-20-2023 End: 10-20-2023 Patient encounter procedure 10/20/2023 10:00 AM EDT Office Visit [facility] [address] [address] [place] [address] Dusty Sommers MD [address] [place] [address] Primary hypertension (CMS/HCC); Hypertensive nephropathy (CMS/HCC); Stage 3b chronic kidney disease (HCC) (CMS/HCC); Mixed dyslipidemia (CMS/HCC); Overweight [facility] Comment on above: Primary hypertension (CMS/HCC); Hypertensive nephropathy (CMS/HCC); Stage 3b chronic kidney disease (HCC) ([facility]/HCC); Mixed dyslipidemia ([facility]/HCC); Overweight Start: 10-12-2021 Creatinine measurement Creatinine mo nitoring [employer] Phone: Start: 10-12-2021 Potassium monitoring [facility]: Start: 10-11-2021 End: 10-11-2021 Patient encounter procedure 10/11/2021 Office Visit Cardiology Bladimir Salguero MD [address] [place] [address] [facility] Start: 09-18-2021 Lipid [facility] [employer] Phone: Start: 10-25-2020 Influenza vaccination Flu vaccine (# 1) [employer] Phone: Start: 02-21-2020 Annual Wellness Visi t (AWV) Annual Wellness Visit (AWV) [employer] Phone: Start: 10-28-2019 End: 10-28-2019 Office Visit 10/28/2019 Office Visit Cardiology Bladimir Salguero MD [address] [place] [address] [facility] Start: 10-26-2019 Influenza vaccination Flu vaccine (# 1) [place], [place] Start: 09-15-2019 End: 09-15-2019 Office Visit 09/15/2019 Office Visit Cardiology Bladimir Salguero MD [address] [place] [address] [phone] [facility] Start: 06-14-2011 Pneumococcal 65+ yea rs Vaccine (1 of 1 - PPSV23) Pneumococcal 65+ years Vaccine (1 of 1 - PPSV23) [place], [place] Start: 2001 Screening for osteoporosis DEXA (modify frequency per FRAX score) [place], [place] Start: 1996 Screening for malign ant neoplasm of breast Breast cancer screen [place], [place] Start: 1996 Screening for malign ant neoplasm of colon Colon cancer screen colonoscopy [place], [place] Start: 1996 Shingles Vaccine (1 of 2) Shingles Vaccine (1 of 2) [place] Start: 06-14-1991 Screening for malign ant neoplasm of colon Colon cancer screen colonoscopy [facility] Work Phone: Start: 1986 Lipid panel Lipid screen [place], [place] Start: 1965 DTaP/Tdap/Td vaccine (1 - Tdap) DTaP/Tdap/Td vaccine (1 - Tdap) [place], [place] Start: 1946 Hepatitis C screening Hepatitis C sc reen [place], [place] End: 09-27-2019 Cardioversion Defibrillation Cardioversion Defibrillation Cardiac Cath Routine Atrial fibrillation, new onset (HCC) 1 Occurrences starting 09/27/2019 until 09/27/2019 [place] Comment on above: 1 Occurrences starti faiza 09/27/2019 until 09/27/2019 End: 09-07-2019 ECHO Complete 2D W Doppler W Color ECHO Complete 2D W Doppler W Color Echocardiography Routine Abnormal EKG Atrial fibrillation, unspecified type (HCC) History of cardiac murmur 1 Occurrences starting 09/07/2019 until 09/07/2019 [place] Comment on above: 1 Occurrences starti ng 09/07/2019 until 09/07/2019 EKG 12 lead [facility] [place], [place] Immunizations Immunization Date Immunization Notes Care Provider Fa rochelle 12-11-2022 RSV, recombinant, pr otein subunit RSVpreF, adjuvant reconstitu, 120mcg/0.5mL, PF (Arexvy) Dusty Sommers MD Work Phone: [facility] 12-10-2022 Influenza, Seasonal, Quadrivalent, Adjuvanted Dusty Sommers MD Work Phone: [facility] 12-10-2022 Pneumococcal Conjuga te PCV 20 Dusty Sommers MD Work Phone: [facility] 12-10-2022 influenza virus vacc ine, unspecified formulation Dusty Sommers MD Work Phone: [facility] 11-21-2021 Influenza, High-dose Seasonal, Quadrivalent, Preservative Free Dusty Sommers MD Work Phone: [facility] 11-03-2021 Moderna SARS-CoV-2 50mcg/0.5mL Booster Dusty Sommers MD Work Phone: [facility] 11-03-2021 SARS-COV-2 (COVID-19 ) vaccine, mRNA, spike protein, LNP, bivalent, preservative free, 30 mcg/0.3 mL dose, ricky-sucrose formulation Dusty Sommers MD Work Phone: [facility] 07-30-2021 Pneumococcal Conjuga te PCV 20 Dusty Sommers MD Work Phone: [facility] 11-13-2020 Influenza, High-dose Seasonal, Quadrivalent, Preservative Free Dusty Sommers MD Work Phone: [facility] 11-15-2019 Influenza, High-dose Seasonal, Quadrivalent, Preservative Free Dusty Sommers MD Work Phone: [facility] 11-19-2018 influenza, high dose seasonal, preservative-free Dusty Sommers MD Work Phone: [facility] 11-19-2018 influenza, injectabl e, quadrivalent, preservative free Dusty Sommers MD Work Phone: [facility] 11-19-2018 pneumococcal polysaccharide vaccine, 23 valent Dusty Sommers MD Work Phone: [facility] 11-24-2017 influenza, injectabl e, quadrivalent, preservative free Dusty Sommers MD Work Phone: [facility] 11-23-2017 influenza, injectabl e, quadrivalent, preservative free Dusty Sommers MD Work Phone: [facility] 11-20-2017 influenza, high dose seasonal, preservative-free Dusty Sommers MD Work Phone: [facility] 12-23-2016 influenza, injectabl e, quadrivalent, preservative free Dusty Sommers MD Work Phone: [facility] 12-23-2016 pneumococcal polysaccharide vaccine, 23 valent Dusty Sommers MD Work Phone: [facility] 11-29-2016 influenza, high dose seasonal, preservative-free Dusty Sommers MD Work Phone: [facility] 11-25-2015 seasonal influenza, intradermal, preservative free Dusty Sommers MD Work Phone: [facility] Payers Date Payer Category Payer Private Health Insurance [employer] [id number] 2021 Unknown [employer] [id number] 2021-Present [address] [place] [address] [id number] 2019 Medicare MEDICARE MEDICAR E PART A AND B [id number] 2019-Present [phone] [place] [address] [id number] 2016 Medicare [id number] 2014 Unknown [employer] M [employer] [address] [id number] 2014-Present [phone] [address] [place] [address] [id number] 1959 Medicare [id number] 1959 Unknown [id number] 1946 Unknown [id number] 1946 Unknown [id number] 647 1946 Unknown [id number] 647 1946 Unknown [id number] 647 1946 Unknown [id number] 647 1946 Unknown [id number] 174 1946 Unknown [id number] 1946 Unknown [id number] 1259 1946 Unknown [id number] 1259 1946 Unknown [id number] 1259 1946 Unknown [id number] 1259 Social History Date Type Detail Facility Tobacco smoking stat us [facility] Unknown if ever smoked Eligible Start: 1945 Sex Assigned At Not on file [facility] Start: 09-15-2019 End: 09-19-2022 Tobacco smoking status MOIS Never smoker [facility] Start: 09-15-2019 End: 09-19-2022 Tobacco use and exposure Never used [employer] [facility] [place] Start: 05-28-2023 End: 04-15-2024 Alcoholic beverage intake Lifetime non-drinker (finding) [facility] Start: 09-12-2022 End: 04-14-2024 [facility] of Social function [facility] Start: 09-12-2022 End: 04-14-2024 Humiliation, Afraid, Rape, and Kick questionnaire [HARK] [facility] Within the last year , have you been afraid of your partner or ex-partner? Patient declined [facility] Within the last year , have you been humiliated or emotionally abused in other ways by your partner or ex-partner? No [facility] Are you now , , , , never or living with a partner? [facility] How often to you hav e a drink containing alcohol? Monthly or less [facility] How many standard dr inks containing alcohol do you have on a typical day? 1 or 2 [facility] How often do you hav e 6 or more drinks on 1 occasion? Less than monthly [facility] Do you feel stress - tense, restless, nervous, or anxious, or unable to sleep at night because your mind is troubled all the time - these days [OSQ] Not at all [facility] Start: 09-19-2022 Education 13 [facility] Start: 09-19-2022 Alcohol Comment Caffeine intak e: 2-3 cups per day [facility] How often to you hav e a drink containing alcohol? Never [facility] (I/We) worried wheth er (my/our) food would run out before (I/we) got money to buy more. Never true [facility] History of Present illness Narrative 04-15-2024 Dusty Sommers MD - 04/15/2024 10:00 AM EST Note Date & Type Note Facility 04-15-2024 History of Presen t illness Narrative Images from the original note were not included. Patient ID: Ashanti Quintero is a 78 y.o. female who presents for: Hypertension Patient is here for follow-up of elevated blood pressure. She is exercising and is adherent to a low-salt diet. Blood pressure is well controlled at home. Cardiac symptoms: dyspnea. Patient denies chest pain, irregular heart beat, lower extremity edema, and palpitations. Cardiovascular risk factors: advanced age (older than 55 for men, 65 for women), dyslipidemia, hypertension, obesity (BMI >= 30 kg/m2), and sedentary lifestyle. Use of agents associated with hypertension: none. History of target organ damage: chronic kidney disease. Arrhythmia Patient who presents for follow-up of atrial fibrillation. Symptoms include none current . Onset was several years ago, and have been stable since that time. The patient denies palpitations, rapid heart beat, and slow heart beat. Hyperlipidemia Pt who presents for follow-up of dyslipidemia. A repeat fasting lipid profile was not done. The patient does not use medications that may worsen dyslipidemias (corticosteroids, progestins, anabolic steroids, diuretics, beta-blockers, amiodarone, cyclosporine, olanzapine). Exercise: weekly. Review of Systems Constitutional: Negative for activity change and fatigue. Respiratory: Positive for shortness of breath. Negative for cough and wheezing. Cardiovascular: Negative for chest pain, palpitations and leg swelling. Neurological: Negative for light-headedness and headaches. Objective The patient is pleasant and in no acute distress. The neck is supple and trachea is midline. No masses are appreciated. The heart is irregular rate and rhythm without S3, S4. No murmur. The patient has normal respiratory pattern. The breath sounds are symmetrical without evidence of rhonchi or rales. No wheezing. The skin is warm and dry. The lower extremities have trace edema. The patient has good eye contact and speech is clear. Appropriate affect. Visit Vitals BP 122/72 Pulse 72 Ht 5' 6 Wt 188 lb SpO2 98% BMI 30.34 kg/m OB Status Hysterectomy Smoking Status Never BSA 1.99 m Allergies Allergen Reactions Lisinopril Other Reaction(s): renal failure Current Outpatient Medications on File Prior to Visit Medication Sig Dispense Refill calcium citrate 1040 MG tablet 2 (two) times a day dilTIAZem CD (Cardizem CD) 180 MG 24 hr capsule Take 2 capsules (360 mg) by mouth Daily 180 capsule 1 hydrALAZINE (Apresoline) 50 MG tablet Take 1 tablet (50 mg) by mouth in the morning and 1 tablet (50 mg) before bedtime. 180 tablet 1 metoprolol tartrate (Lopressor) 25 MG tablet Take 1 tablet (25 mg) by mouth in the morning and 1 tablet (25 mg) before bedtime. 180 tablet 1 rivaroxaban (Xarelto) 20 MG tablet Take 1 tablet (20 mg) by mouth in the evening. Take with meals 90 tablet 1 rosuvastatin (Crestor) 5 MG tablet Take 1 tablet (5 mg) by mouth in the evening 90 tablet 1 triamterene-hydrochlorothiazide (Maxzide-25) 37.5-25 MG tablet Take 1 tablet by mouth Daily 90 tablet 1 No current facility-administered medications on file prior to visit. 1. Primary hypertension (CMS/HCC) Chronic problem, stable, to goal. Labs reviewed with patient. - triamterene-hydrochlorothiazide (Maxzide-25) 37.5-25 MG tablet; Take 1 tablet by mouth Daily Dispense: 90 tablet; Refill: 1 - dilTIAZem CD (Cardizem CD) 180 MG 24 hr capsule; Take 2 capsules (360 mg) by mouth Daily Dispense: 180 capsule; Refill: 1 - metoprolol tartrate (Lopressor) 25 MG tablet; Take 1 tablet (25 mg) by mouth in the morning and 1 tablet (25 mg) before bedtime. Dispense: 180 tablet; Refill: 1 - hydrALAZINE (Apresoline) 50 MG tablet; Take 1 tablet (50 mg) by mouth in the morning and 1 tablet (50 mg) before bedtime. Dispense: 180 tablet; Refill: 1 - Basic metabolic panel; Future - Basic metabolic panel 2. Hypertensive nephropathy (CMS/HCC) Chronic problem, stable, demonstrating end organ damage from their current state of health. I stressed the importance of keeping blood pressure and blood sugar to goal, staying well hydrated, avoiding NSAIDs, and aerobic exercises as tolerated. Continue to monitor longitudinally. 3. Stage 4 chronic kidney disease (CMS/HCC) Chronic problem, stable, defining the end organ damage of the nephropathy. I stressed the importance of keeping blood pressure and blood sugar to goal, staying well hydrated, and aerobic exercises as tolerated. Continue to monitor longitudinally. I did offer again referral to a blowing weasand in the patient has declined. - Basic metabolic panel; Future - Basic metabolic panel 4. Longstanding persistent atrial fibrillation (CMS/HCC) Chronic problem, stable In prescribing a renewal to their current medication, consideration of the following encompasses moderate decision making; the current prescriptions and supplements, the current allergies and medication intolerances, current medical conditions, and potential drug interactions. Any changes to risks, benefits, and reason for renewing their current medication due to the above were discussed. The patient was given a chance to ask questions today and all questions were answered. The patient is to contact us if any other questions arise or if any problems occur. (Utilizing the original 1994/1996 guidelines or the 2020 office/outpatient code guidelines for selecting the level of E/M service, In both sets of guidelines, prescription drug management appears in the moderate medical decision making (MDM) row. Neither the original guidelines nor the new guidelines state that a new prescription or change is needed in order to credit prescription drug management) - metoprolol tartrate (Lopressor) 25 MG tablet; Take 1 tablet (25 mg) by mouth in the morning and 1 tablet (25 mg) before bedtime. Dispense: 180 tablet; Refill: 1 - rivaroxaban (Xarelto) 20 MG tablet; Take 1 tablet (20 mg) by mouth in the evening. 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 Mixed dyslipidemia (CMS/HCC) Chronic problem, stable, monitor longitudinally. - rosuvastatin (Crestor) 5 MG tablet; Take 1 tablet (5 mg) by mouth in the evening Dispense: 90 tablet; Refill: 1 7. Polypharmacy Chronic problem The patient meets the criteria for polypharmacy; 5 or more prescriptions or multi-morbidity defined as 5 or more diagnoses. Polypharmacy can significantly increase the risk of preventable adverse drug events and negatively impact adherence. Consideration of diverse factors such as clinician agreement, patient perspective, and de-prescribing, as appropriate can improve patient outcomes while simplifying care. This requires longitudinal monitoring as there is at least a moderate risk of morbidity and requires at least a moderate degree of evaluation and management. documented in this encounter [facility] History of Present illness Narrative 10-20-2023 Dusty Sommers MD - 10/20/2023 10:00 AM EDT Note Date & Type Note Facility 10-20-2023 History of Presen t illness Narrative Images from the original note were not included. Patient ID: Ashanti Quintero is a 78 y.o. female who presents for: Hypertension Patient is here for follow-up of elevated blood pressure. She is exercising and is adherent to a low-salt diet. Blood pressure is well controlled at home. Cardiac symptoms: dyspnea and lower extremity edema. Patient denies chest pain, irregular heart beat, and palpitations. Cardiovascular risk factors: advanced age (older than 55 for men, 65 for women), dyslipidemia, and hypertension. Use of agents associated with hypertension: none. History of target organ damage: none. Hyperlipidemia Pt who presents for follow-up of dyslipidemia. A repeat fasting lipid profile was done through [employer]. The patient does not use medications that may worsen dyslipidemias (corticosteroids, progestins, anabolic steroids, diuretics, beta-blockers, amiodarone, cyclosporine, olanzapine). Exercise: daily. Review of Systems Constitutional: Negative for activity change and fatigue. Respiratory: Positive for shortness of breath. Negative for cough and wheezing. Cardiovascular: Positive for leg swelling. Negative for chest pain and palpitations. Neurological: Negative for light-headedness and headaches. Objective The patient is pleasant and in no acute distress. The neck is supple and trachea is midline. No masses are appreciated. The heart is regular rate and rhythm without S3, S4. No murmur. The patient has normal respiratory pattern. The breath sounds are symmetrical without evidence of rhonchi or rales. No wheezing. The skin is warm and dry. The lower extremities have trace edema. The patient has good eye contact and speech is clear. Appropriate affect. Visit Vitals BP 124/70 Pulse 97 Ht 5' 6 Wt 188 lb 8 oz SpO2 98% BMI 30.42 kg/m OB Status Hysterectomy Smoking Status Never BSA 2 m Clinisync Result Encounter on 09/30/2023 Component Date Value Ref Range Status [facility] WBC 09/30/2023 7.3 4.0 - 11.0 10 3/uL Final [facility] RBC 09/30/2023 3.95 (L) 4.20 - 5.40 10 6/uL Final [facility] HGB 09/30/2023 11.9 (L) 12.0 - 16.0 g/dL Final [facility] HCT 09/30/2023 36.5 36.0 - 48.0 % Final [facility] MCV 09/30/2023 92.4 81.0 - 99.0 fL Final [facility] MCH 09/30/2023 30.1 26.7 - 34.0 pg Final [facility] MCHC 09/30/2023 32.6 29.9 - 35.2 g/dL Final [facility] RDW 09/30/2023 13.4 11.0 - 15.0 % Final [facility] PLT 09/30/2023 278 150 - 450 10 3/uL Final [facility] MPV 09/30/2023 10.6 9.5 - 13.5 fL Final NEUTROPHILS PERCENT AUTO 09/30/2023 57.3 43.0 - 75.0 % Final LYMPHOCYTES PERCENT AUTO 09/30/2023 29.3 20.5 - 60.0 % Final MONOCYTES PERCENT AUTO 09/30/2023 9.8 1.7 - 12.0 % Final [facility]H EO % 09/30/2023 3.0 0.9 - 7.0 % Final BASOPHILS PERCENT AUTO 09/30/2023 0.3 0.2 - 2.0 % Final IMMATURE GRANULOCYTES PCT AUTO 09/30/2023 0.3 0.0 - 0.5 % Final NEUTROPHILS ABSOLUTE AUTO 09/30/2023 4.2 1.4 - 6.5 10 3/uL Final LYMPHOCYTES ABSOLUTE AUTO 09/30/2023 2.1 1.2 - 3.8 10 3/uL Final MONOCYTES ABSOLUTE AUTO 09/30/2023 0.7 0.3 - 0.8 10 3/uL Final TBH EO # 09/30/2023 0.2 0.0 - 0.7 10 3/uL Final BASOPHILS ABSOLUTE AUTO 09/30/2023 0.0 0.0 - 0.1 10 3/uL Final IMMATURE GRANULOCYTES ABS AUTO 09/30/2023 0.02 0.00 - 0.03 10 3/uL Final SODIUM 09/30/2023 141 136 - 145 mmol/L Final POTASSIUM 09/30/2023 4.3 3.5 - 5.1 mmol/L Final CHLORIDE 09/30/2023 103 98 - 107 mmol/L Final CARBON DIOXIDE 09/30/2023 25.7 21.0 - 32.0 mmol/L Final ANION GAP 09/30/2023 16.6 Final GLUCOSE 09/30/2023 105 74 - 106 mg/dL Final BLOOD UREA NITROGEN 09/30/2023 35.0 (H) 7.0 - 18.0 mg/dL Final CREATININE 09/30/2023 1.93 (H) 0.55 - 1.02 mg/dL Final TBH EGFR-AF BELARUSIAN 09/30/2023 31 (L) >=60 Final TBH EGFR-NON AF BELARUSIAN 09/30/2023 25 (L) >=60 Final BUN CREATININE RATIO 09/30/2023 18.1 Final CALCIUM 09/30/2023 9.4 8.5 - 10.1 mg/dL Final BILIRUBIN TOTAL 09/30/2023 0.6 0.2 - 1.0 mg/dL Final ASPARTATE AMINO TRANSFERASE 09/30/2023 25 15 - 37 U/L Final ALANINE AMINOTRANSFERASE 09/30/2023 32 14 - 59 U/L Final ALKALINE PHOSPHATASE 09/30/2023 81 46 - 116 U/L Final TOTAL PROTEIN 09/30/2023 7.5 6.4 - 8.2 g/dL Final ALBUMIN LEVEL 09/30/2023 3.9 3.4 - 5.0 g/dL Final GLOBULIN 09/30/2023 3.6 g/dL Final ALBUMIN GLOBULIN RATIO 09/30/2023 1.1 Final MAGNESIUM 09/30/2023 1.9 1.8 - 2.4 mg/dL Final TRIGLYCERIDES 09/30/2023 65 <=150 mg/dL Final CHOLESTEROL 09/30/2023 133 <=200 mg/dL Final HDL CHOLESTEROL 09/30/2023 52 40 - 60 mg/dL Final Comment: > or =60 mg/dl - LOW CARDIOVASCULAR RISK <40 mg/dl - HIGH CARDIOVASCULAR RISK LDL CHOLESTEROL CALCULATED 09/30/2023 68.0 mg/dL Final Comment: <100 mg/dl OPTIMAL 100-129 mg/dl NEAR OR ABOVE OPTIMAL 130-159 mg/dl BORDERLINE HIGH 160-189 mg/dl HIGH >190 mg/dl VERY HIGH VLDL CHOLESTEROL 09/30/2023 13.0 mg/dL Final CHOL HDL RATIO 09/30/2023 2.6 Final Comment: 3.3 - 4.4 LOW RISK 4.4 - 7.1 AVERAGE RISK 7.1 - 11.0 MODERATE RISK >11.0 HIGH RISK THYROID STIMULATING HORMONE 09/30/2023 2.309 0.358 - 3.740 uIU/mL Final VITAMIN D 09/30/2023 55.8 ng/mL Final Comment: <20 ng/mL Vit D deficient 20-<30 ng/mL Vit D insufficient 30-100 ng/mL Vit D sufficient >100 ng/mL Potential Toxicity Allergies Allergen Reactions Lisinopril Other Reaction(s): renal failure Current Outpatient Medications on File Prior to Visit Medication Sig Dispense Refill calcium citrate 1040 MG tablet 2 (two) times a day dilTIAZem CD (Cardizem CD) 180 MG 24 hr capsule Take 2 capsules (360 mg) by mouth Daily 180 capsule 1 hydrALAZINE (Apresoline) 50 MG tablet Take 1 tablet (50 mg) by mouth in the morning and 1 tablet (50 mg) before bedtime. 180 tablet 1 metoprolol tartrate (Lopressor) 25 MG tablet Take 1 tablet (25 mg) by mouth in the morning and 1 tablet (25 mg) before bedtime. 180 tablet 1 rivaroxaban (Xarelto) 20 MG tablet Take 1 tablet (20 mg) by mouth in the evening. Take with meals 90 tablet 1 rosuvastatin (Crestor) 5 MG tablet Take 1 tablet (5 mg) by mouth in the evening 90 tablet 1 triamterene-hydrochlorothiazide (Maxzide-25) 37.5-25 MG tablet Take 1 tablet by mouth in the morning. 90 tablet 0 No current facility-administered medications on file prior to visit. 1. Primary hypertension (CMS/HCC) Chronic problem, stable, to goal. - hydrALAZINE (Apresoline) 50 MG tablet; Take 1 tablet (50 mg) by mouth in the morning and 1 tablet (50 mg) before bedtime. Dispense: 180 tablet; Refill: 1 - metoprolol tartrate (Lopressor) 25 MG tablet; Take 1 tablet (25 mg) by mouth in the morning and 1 tablet (25 mg) before bedtime. Dispense: 180 tablet; Refill: 1 - dilTIAZem CD (Cardizem CD) 180 MG 24 hr capsule; Take 2 capsules (360 mg) by mouth Daily Dispense: 180 capsule; Refill: 1 - triamterene-hydrochlorothiazide (Maxzide-25) 37.5-25 MG tablet; Take 1 tablet by mouth Daily Dispense: 90 tablet; Refill: 1 - Basic metabolic panel; Future - Basic metabolic panel 2. Hypertensive nephropathy (CMS/HCC) Chronic problem, stable, demonstrating end organ damage from their current state of health. I stressed the importance of keeping blood pressure and blood sugar to goal, staying well hydrated, avoiding NSAIDs, and aerobic exercises as tolerated. Continue to monitor longitudinally. 3. Stage 4 chronic kidney disease (CMS/HCC) I did discuss with her again the usually end-stage for patients are seen nephrology. We discussed in it appears to have been stable since 2020. She prefers just to monitor it through this office and not see a blowing weasand. Chronic problem, stable, defining the end organ damage of the nephropathy. I stressed the importance of keeping blood pressure and blood sugar to goal, staying well hydrated, and aerobic exercises as tolerated. Continue to monitor longitudinally. - CBC and differential; Future - Basic metabolic panel; Future - CBC and differential - Basic metabolic panel 4. Longstanding persistent atrial fibrillation (CMS/HCC) Chronic problem, stable She has not occasional palpitations but nothing sustained. She has had no stroke symptomatology. The metoprolol is also cross treating the hypertension. - rivaroxaban (Xarelto) 20 MG tablet; Take 1 tablet (20 mg) by mouth in the evening. Take with meals Dispense: 90 tablet; Refill: 1 - metoprolol tartrate (Lopressor) 25 MG tablet; Take 1 tablet (25 mg) by mouth in the morning and 1 tablet (25 mg) before bedtime. Dispense: 180 tablet; Refill: 1 5. Mixed dyslipidemia (CMS/HCC) Chronic problem, stable, to goal In prescribing a renewal to their current medication, consideration of the following encompasses moderate decision making; the current prescriptions and supplements, the current allergies and medication intolerances, current medical conditions, and potential drug interactions. Any changes to risks, benefits, and reason for renewing their current medication due to the above were discussed. The patient was given a chance to ask questions today and all questions were answered. The patient is to contact us if any other questions arise or if any problems occur. (Utilizing the original guidelines or the 2020 office/outpatient code guidelines for selecting the level of E/M service, In both sets of guidelines, prescription drug management appears in the moderate medical decision making (MDM) row. Neither the original guidelines nor the new guidelines state that a new prescription or change is needed in order to credit prescription drug management) - rosuvastatin (Crestor) 5 MG tablet; Take 1 tablet (5 mg) by mouth in the evening Dispense: 90 tablet; Refill: 1 6. Overweight Encouraged increased activity. Chronic problem The patient meets the criteria for polypharmacy; 5 or more prescriptions or multi-morbidity defined as 5 or more diagnoses. Polypharmacy can significantly increase the risk of preventable adverse drug events and negatively impact adherence. Consideration of diverse factors such as clinician agreement, patient perspective, and de-prescribing, as appropriate can improve patient outcomes while simplifying care. This requires longitudinal monitoring as there is at least a moderate risk of morbidity and requires at least a moderate degree of evaluation and management. documented in this encounter [facility] Evaluation note Note Date & Type Note Facility Evaluation note Diagnosis Atrial fibrillation, new onset (HCC) Atrial fibrillation documented in this encounter [employer]: Evaluation note Note Date & Type Note Facility Evaluation note Diagnosis Primary hypertension (CMS/HCC)- Primary Unspecified essential hypertension Hypertensive nephropathy (CMS/HCC) Unspecified hypertensive kidney disease with chronic kidney disease stage I through stage IV, or unspecified Stage 4 chronic kidney disease (CMS/HCC) Longstanding persistent atrial fibrillation (CMS/HCC) Mixed dyslipidemia (CMS/HCC) Overweight documented in this encounter [facility] Evaluation note Note Date & Type Note Facility Evaluation note Diagnosis Primary hypertension (CMS/HCC) Unspecified essential hypertension Mixed dyslipidemia (CMS/HCC) Longstanding persistent atrial fibrillation (CMS/HCC) documented in this encounter [facility] Evaluation note Note Date & Type Note Facility Evaluation note Diagnosis Primary hypertension (CMS/HCC) Unspecified essential hypertension Hypertensive nephropathy (CMS/HCC) Unspecified hypertensive kidney disease with chronic kidney disease stage I through stage IV, or unspecified Stage 4 chronic kidney disease (CMS/HCC) Longstanding persistent atrial fibrillation (CMS/HCC) group home current use of anticoagulant therapy Mixed dyslipidemia (CMS/HCC) Polypharmacy Issue of repeat prescriptions documented in this encounter [facility] Reason for Referral Status Reason Specialty Diagnoses / Procedures Referre d By Contact Referred To Contact Closed Cardiology Diagnoses Abnormal EKG Atrial fibrillation, unspecified type (HCC) History of cardiac murmur Procedures ECHO Complete 2D W Doppler W Color Bladimir Salguero MD [address] [place] [id number] Assessments Diagnosis Abnormal EKG Nonspecific abnormal electrocardiogram (ECG) (EKG) Atrial fibrillation, unspecified type (HCC) History of cardiac murmur Personal history of other diseases of circulatory system Diagnosis Atrial fibrillation, new onset (HCC) Atrial fibrillation Advance Directives No Advanced Directives Records FoundDocuments on File Type Date Recorded Patient Japanese Interpreter Expl 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 Advance Directives and Living Will Power of Pay Clerk Documents on File Type Date Recorded Patient Japanese Interpreter Expl anation ACP-Advance Directive ACP-Power of Pay Clerk Documents on File Type Date Recorded Patient Japanese Interpreter Expl anation Advance Directives and Living Will 09/07/2018 2018-09-07 [facility] Advance Directives and Living Will 09/07/2018 2018-09-07 [facility] Summary Purpose Family History No Family History [...] W Doppler W Color Bladimir Salguero MD [address] [place] [address] Status Reason Specialty Diagnoses / Procedures Re ferred By Contact Referred To Contact Closed Stress Lab Diagnoses Unspecified atrial fibrillation Procedures HC CARDIOVERSION Bladimir Salguero MD [address] [place] [address] [facility] [address] [place] [address] Reason Comments Hypertension Hyperlipidemia Reason Comments Med Refill Reason Comments Hypertension Atrial Fibrillation Hyperlipidemia INFORMATION SOURCE (unrecogn ized section and content) DATE CREATED AUTHOR 09/06/2020 [facility] DATE CREATED AUTHOR AUTHOR'S ORGANIZ ATION 10/14/2020 [facility] DATE CREATED AUTHOR AUTHOR'S ORGANIZ ATION 01/11/2022 [facility] DATE CREATED AUTHOR AUTHOR'S ORGANIZ ATION 04/10/2024 [facility] DATE CREATED AUTHOR AUTHOR'S ORGANIZ ATION 05/04/2024 [facility] Care Teams (unrecognized sec tion and content) Sampler Ovens Relationship Specialty Start Date End Date Dusty Sommers MD [address] [place] [id number] PCP - General Family Medicine 08/22/22 Dusty Sommers MD [address] [id number] PCP - ACO Reach 04/25/23 Mini Chávez DO [address] [id number] Referring Physician Neurology 05/14/23 Mario Gardner MD [address] [phone] Referring Physician Optometry 05/28/23 Sampler Ovens Relationship Specialty Start Date End Date Dusty Sommers MD [address] [place] [address] PCP - General Family Medicine 08/22/22 Dusty Sommers MD [address] [facility] [place] [address] (Fax) PCP - ACO Reach 04/25/23 Mini Chávez DO [address] [place] [address] Referring Physician Neurology 05/14/23 Mario Gardner MD [address] [place] [address] Referring Physician Optometry 05/28/23 Sampler Ovens Relationship Specialty Start Date End Date Dusty Sommers MD (Fax) PCP - General Family Medicine 08/22/22 Dusty Sommers MD [address] [place] [address] (Fax) PCP - ACO Reach 04/25/23 Mini Chávez DO [address] [place] [address] Referring Physician Neurology 05/14/23 Mario Monroe OD [address] [place] [address] Referring Physician Optometry 05/28/23 Sampler Ovens Relationship Specialty Start Date End Date Dusty Sommers MD (Fax) PCP - General Family Medicine 08/22/22 Dusty Sommers MD [address] [place] [address] PCP - ACO Reach 04/25/23 Mini Chávez DO [address] [place] [address] Referring Physician Neurology 05/14/23 Mario Monroe, OD [address] [place] [address] Referring Physician Optometry 05/28/23 Sampler Ovens Relationship Specialty Start Date End Date Dusty Sommers MD (Fax) PCP - General Family Medicine 08/22/22 Dusty Sommers MD [address] [facility] [address] [place] [address] PCP - ACO Reach 04/25/23 Mini Chávez DO [address] [place] [address] Referring Physician Neurology 05/14/23 Mario Monroe OD [address] [place] [address] Referring Physician Optometry 05/28/23 FOR RECORDS PERTAINING TO PATIENTS WHO ARE [...] BE BASED ON THE PRIMARY CLINICAL RECORDS. [facility] [employer] [facility]. provides no warranty or guarantee of the accuracy or completeness of information in this document.
[2024-09-17 08:22] LABS: Hematocrit 37.5 % (36.0-48.0); Hemoglobin 12.3 g/dL (12.0-16.0); Immature Granulocytes Abs Auto 0.02 10^3/uL (0.00-0.03); Immature Granulocytes Pct Auto 0.3 % (0.0-0.5); Lymphocytes Absolute Auto 2.0 10^3/uL (1.2-3.8); Mean Corpuscular HGB Conc 32.8 g/dL (29.9-35.2); Mean Corpuscular Hemoglobin 29.5 pg (26.7-34.0); Mean Corpuscular Volume 89.9 fL (81.0-99.0); Platelet Count 278 10^3/uL (150-450); Red Blood Count 4.17 10^6/uL (4.20-5.40); White Blood Count 6.8 10^3/uL (4.0-11.0)
--- NOTE | 2024-09-17 08:40 | ECG_ITS ---
[facility] Test Date: 2024-09-17 Pat Name: CARMEN ROSAS Department: Room: - Gender: Female Rn Perinatal: : 1945 Requested By: BLADIMIR JI Order Number: [id number] Reading MD: TERIR NUNEZ M.D. Measurements Intervals [place] Rate: 63 P: [place]: QRS: -28 QRSD: 81 T: 27 QT: 408 QTc: 420 Interpretive Statements ATRIAL FIBRILLATION BORDERLINE LEFT AXIS DEVIATION [QRS AXIS < -20] LOW QRS VOLTAGE IN PRECORDIAL LEADS [QRS DEFLECTION < 1.0 mV IN CHEST LEADS] MINIMAL ST DEPRESSION [0.025+ mV ST DEPRESSION] ABNORMAL ECG Compared to ECG 09/30/2023 08:24:58 ST (T wave) deviation now present Electronically Signed On 09-18-2024 8:16:36 EDT by TERRI NUNEZ M.D.
[2024-09-17 11:35] LABS: Alanine Aminotransferase 38 U/L (14-59); Albumin Globulin Ratio 1.0; Albumin Level 3.8 g/dL (3.4-5.0); Alkaline Phosphatase 87 U/L (46-116); Anion Gap 13.0; Aspartate Amino Transferase 33 U/L (15-37); Blood Urea Nitrogen 36.0 mg/dL (7.0-18.0); Calcium 9.5 mg/dL (8.5-10.1); Carbon Dioxide 25.8 mmol/L (21.0-32.0); Chloride 104 mmol/L (98-107); Cholesterol 183 mg/dL (<=200); Estimated GFR (African America 28 (>=60 mL/min/1.73m^2); Estimated GFR (Non-African Ame 23 (>=60 mL/min/1.73m^2); Globulin 3.8 g/dL; Glucose 119 mg/dL (74-106); HDL Cholesterol 62 mg/dL (40-60); Magnesium 2.0 mg/dL (1.8-2.4); Potassium 3.8 mmol/L (3.5-5.1); Sodium 139 mmol/L (136-145); TSH W/ REFLEX FT4 1.837 uIU/mL (0.358-3.740); Total Protein 7.6 g/dL (6.4-8.2)
[2024-09-17 12:36] LABS: VLDL CHOLESTEROL 20.4 mg/dL
[2024-09-17 12:49] LABS: Triglycerides 65 mg/dL (<=150)
== END 2024-09-17 08:05 | disposition home or self-care (01) ==
PROVIDERS: PCP Family Medicine
DX: E78.5 Hyperlipidemia, unspecified (principal); I48.91 Unspecified atrial fibrillation; I34.0 Nonrheumatic mitral (valve) insufficiency; I07.1 Rheumatic tricuspid insufficiency; E55.9 Vitamin D deficiency, unspecified
CPT/HCPCS: 36415; 71046; 80053; 80061; 82306; 83735; 84443; 85025; 93005